=== PATIENT | female | born 1945 | race Caucasian/White ===

== ENCOUNTER 2020-01-02 10:02 | Outpatient (CLI) | payer MEDICARE, OTHER, SELFPAY ==
--- NOTE | 2020-01-02 | XR_ITS ---
WS: [id number] KNEE RIGHT TECHNIQUE: 3 views of the right knee CLINICAL INFORMATION: RT KNEE PAIN COMPARISON: None. FINDINGS: Mild degenerative arthritis with medial compartment narrowing. Hypertrophic changes along the joint l ine. Hypertrophic patella. Narrowing of the right patellofemoral articulation. No significant effusio n. Prior postoperative changes left TKA. XR/XR knee RT 3V* [id number] IMPRESSION: Mild tricompartmental arthritis right knee.
--- NOTE | 2020-01-02 | XR_ITS ---
WS: [id number] KNEE RIGHT TECHNIQUE: 3 views of the right knee CLINICAL INFORMATION: RT KNEE PAIN COMPARISON: None. FINDINGS: Mild degenerative arthritis with medial compartment narrowing. Hypertrophic changes along the joint l ine. Hypertrophic patella. Narrowing of the right patellofemoral articulation. No significant effusio n. Prior postoperative changes left TKA. XR/[place] [id number] IMPRESSION: Mild tricompartmental arthritis right knee.
== END 2020-01-02 10:03 | disposition home or self-care (01) ==
LOC: RADOUTREAD 01-03 10:39
PROVIDERS: Family Provider Nurse Practitioner; Visit Provider Physician Assistant
DX: Z01.89 Encounter for other specified special examinations (principal)

== ENCOUNTER 2020-01-02 22:22 | Emergency (ER) | payer MEDICARE, OTHER, SELFPAY ==
[2020-01-02 22:23] VITALS: BP 204/84; PULSE 75; RESP 16; TEMP 36.5; O2SAT 99; BMI 29.5
--- NOTE | 2020-01-02 22:29 | ED_ITS ---
Entered by Celena Juan, acting as scribe for HPI - Fall General: Chief Complaint: Fall Stated Complaint: FALL Time Seen by Provider: 01/02/20 22:29 Source: patient Mode of arrival: EMS Limitations: no limitations History of Present Illness: HPI Narrative: 74 yo f came to the er by [facility] for a fall and head injury. 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 Pt hit her head, right above her right eye, right hand and her right knee. Pt states that she was not able to move after. 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) Fall from: standing Fall witnessed: no Place fall occurred: home Loss of consciousness: None Prolonged down time: yes Symptoms prior to fall: none Context: tripped/slipped Location of injury: head Location of injury - extremities: Right: hand and knee Severity: mild Quality: stabbing Associated symptoms-after fall: Reports no associated symptoms; Denies abdominal pain, chest pain, headache(s) or neck pain Review of Systems General: Reports: other (negative unless marked) Const: Denies: fever, chills, body aches or change in appetite Eyes: Denies: blurry vision or eye discomfort ENMT: Denies: throat pain or dental pain Card: Denies: chest pain Resp: Denies: shortness of breath GI: Denies: abdominal pain, nausea, vomiting or diarrhea : Denies: painful urination Musc: Denies: neck pain or back pain Skin/Breast: Denies: rash Neuro: Denies: headache Psych: Denies: depression Tyler/Lymph: Denies: easy bruising All/Imm: Denies: hives PFSH ED PFSH: Social History Smoking and tobacco status: former smoker Physical Exam Const: COMMON NORMALS: no apparent distress, oriented x3 and healthy appearing HENMT: COMMON NORMALS: normocephalic HEAD & SCALP: normocephalic OTHER: Large hematoma over right eye extraocular movements intact Eye: COMMON NORMALS: PERRL and EOMs intact bilaterally PUPIL: Yes PERRL Neck/C-Spine: COMMON NORMALS: full ROM and supple Chest: COMMONS NORMALS: inspection of chest normal and palpation of chest normal Resp: COMMON NORMALS: normal respiratory effort, no retractions, no use of accessory muscles and clear to auscultation bilaterally AUSCULTATION: clear to auscultation bilaterally Cardio: COMMON NORMALS: regular rate, regular rhythm and no murmurs RATE: regular rate RHYTHM: regular rhythm GI: COMMON NORMALS: normal to inspection, nondistended, normoactive bowel sounds, soft to palpation, non-tender and no masses PALPATION: Yes soft Extremity: COMMON NORMALS: normal to inspection NARRATIVE EXTREMITY EXAM: Tenderness over right knee with some pain to range of motion. Contusion to right hand Neuro: COMMON NORMALS: oriented x3, moves all extremities and no focal motor deficits Psych: COMMON NORMALS: mental status grossly normal, thought process normal and cooperative THOUGHT PROCESS: normal thought process Skin: COMMON NORMALS: no rashes or lesions noted and no wounds GENERAL SKIN EXAM: no rashes or lesions noted TRAUMA: abrasion Course Vital Signs: Vital signs: Vital Signs Temperature 97.7 F 01/02/20 22:23 Pulse Rate 75 01/02/20 22:23 Respiratory Rate 16 01/02/20 22:23 Blood Pressure 204/84 01/02/20 22:23 Pulse Oximetry 99 01/02/20 22:23 MDM - Fall MDM Narrative: Medical decision making narrative: Patient presents here with proximal fibula fracture from a fall. Patient also has a closed head injury with CT being normal. She has a bruise to her hand as well with no fractures seen on x-ray. Patient placed in a knee immobilizer here and is to follow-up with orthopedics. She is to return if worsening. Imaging Data^: CT Head: Radiologist's impression: [address] [address] [address] Scan Report Signed Patient: Kalli Castaneda #: [id number] : 6Acct#:[id number] Age/Sex: 74 / FADM Date: 01/02/20 Loc: ERRoom/Bed: Attending Dr: Ordering Provider/Ordering MD: Isaiah Valera MD Date of Service: 01/02/20 Procedure(s): CT head wo con* [id number] Accession Number(s): [id number] Report Number: [id number] PROCEDURE INFORMATION: Exam: CT Head Without Contrast Exam date and time: 01/02/2020 10:36 PM Age: 74 years old Clinical indication: Injury or trauma; Fall; Initial encounter; Blunt trauma (contusions or hematomas); Without loss of consciousness; Injury date: 01/02/2020; Injury details: PT fell on hardwood, denies loc. Swelling/bruising RT orbit, RT side of lip TECHNIQUE: Imaging protocol: Computed tomography of the head without contrast. Total DLP: 781.38 mGy-cm Radiation optimization: All CT scans at this facility use at least one of these dose optimization techniques: automated exposure control; mA and/or kV adjustment per patient size (includes targeted exams where dose is matched to clinical indication); or iterative reconstruction. COMPARISON: CT head wo con* [id number] 10/17/2018 8:29 AM FINDINGS: Brain: There is minimal hypoattenuation in the periventricular white matter suggesting chronic microvascular disease. There is no significant mass effect or midline shift. There is no acute intracranial hemorrhage. Ventricles: There is no significant ventricular dilation. The basal cisterns are unremarkable. Bones/joints: The calvarium is intact. Sinuses: The paranasal sinuses are clear. Mastoid air cells: Mastoid air cells are hypoplastic. Soft tissues: Right frontal supraorbital scalp hematoma measuring 23 x 10 mm with right preseptal swelling. Visible portions of the orbital contents are unremarkable. CT/CT head wo con* [id number] IMPRESSION: 1. No acute intracranial abnormality. 2. Right frontal and preseptal contusions. Radiation Dose CTDIVOL = (mGy): DLP = 781.38 (mGy-cm) Dictated By:Aaron Carter MD Signed By:Aaron Carter MDSigned Date/Time:01/02/202308 DD/ 06 Other Xray: Radiologist's impression: [address] [address] XRay Report Signed Patient: Kalli Castaneda #: [id number] : 6Acct#:[id number] Age/Sex: 74 / FADM Date: 01/02/20 Loc: ERRoom/Bed: Attending Dr: Ordering Provider/Ordering MD: Isaiah Valera MD Date of Service: 01/02/20 Procedure(s): XR knee RT 3V* [id number] Accession Number(s): [id number] Report Number: [id number] PROCEDURE INFORMATION: Exam: XR Right Knee Exam date and time: 01/02/2020 10:50 PM Age: 74 years old Clinical indication: Injury or trauma; Fall; Initial encounter; Blunt trauma; Right; Injury date: 01/02/2020; Injury details: 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 Views: 3 views. COMPARISON: No relevant prior studies available. FINDINGS: Bones/joints: Subtle medial and lateral compartment chondrocalcinosis. Femoral acetabular alignment is normal. Joint spaces are preserved. The visible portions of the femur, tibia and patella are intact. No large joint effusion. Small patellar osteophytes. Subtle lucency through the fibular head visible on the oblique view. Soft tissues: Soft tissues are unremarkable. XR/XR knee RT 3V* [id number] IMPRESSION: 1. Possible nondisplaced fibular head fracture. Correlate with physical exam findings. 2. Satisfactory knee alignment with intact distal femur and tibia. Dictated By:Aaron Carter MD Signed By:Aaron Carter MDSigned Date/Time:01/02/202310 DD/ 08 Discharge Plan Discharge Patient Disposition: Home, Self-Care Clinical Impression: Fall Qualifiers: Encounter type: initial encounter Qualified Code(s): W19.XXXA - Unspecified fall, initial encounter Closed head injury Qualifiers: Encounter type: initial encounter Qualified Code(s): S09.90XA - Unspecified injury of head, initial encounter Closed fracture fibula, head Qualifiers: Encounter type: initial encounter Laterality: right Qualified Code(s): S82.831A - Other fracture of upper and lower end of right fibula, initial encounter for closed fracture Condition: Stable Prescriptions: [place] 5-325 mg tablet 1 tab PO Q6H PRN (Reason: pain) Qty: 10 RF: 0 Discharge Orders: Discharge Order (Routine); Ordered 01/02/20 Ordered By: Isaiah Valera Referrals: Bradley Wallace, MACHINE OPERATOR [facility]ICK[facility] [Family Provider] - 1-3 days Discharge Diet: Advance as tolerated Discharge Activity: Resume usual activity Patient Instructions: Leg Fracture (ED), Fall Prevention (ED) Discharge Date/Time: 01/03/20 00:12 Coding Level of Care Code ED Green Building Energy Engineer for Chg Fwd Exam Problem Focused The documentation recorded by the Drake castaneda Stephanie Lyn, accurately r eflects the service I personally performed and the decisions made by Moraima blue Korby, MD Jan 02, 2020 22:22
--- NOTE | 2020-01-02 22:35 | XRR_ITS ---
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 Views: 3 views. COMPARISON: No relevant prior studies available. FINDINGS: Bones/joints: Subtle medial and lateral compartment chondrocalcinosis. Femoral acetabular alignment is normal. Joint spaces are preserved. The visible portions of the femur, tibia and patella are intact. No large joint effusion. Small patellar osteophytes. Subtle lucency through the fibular head visible on the oblique view. Soft tissues: Soft tissues are unremarkable. XR/XR knee RT 3V* [id number] IMPRESSION: 1. Possible nondisplaced fibular head fracture. Correlate with physical exam findings. 2. Satisfactory knee alignment with intact distal femur and tibia.
--- NOTE | 2020-01-02 22:35 | XR_ITS ---
WS: [id number] Right hand, 01/02/2020 Clinical Data: injury Comparison: None. Findings: No fractures or dislocations are seen. . The soft tissues are unremarkable. The joint spaces are norm al. Osteoarthritic changes of the second through fifth MP joints is seen. XR/XR hand RT min 3V* [id number] Impression: Negative for fracture or dislocation.
--- NOTE | 2020-01-02 22:35 | CTR_ITS ---
PROCEDURE INFORMATION: Exam: CT Head Without Contrast Exam date and time: 01/02/2020 10:36 PM Age: 74 years old Clinical indication: Injury or trauma; Fall; Initial encounter; Blunt trauma (contusions or hematomas); Without loss of consciousness; Injury date: 01/02/2020; Injury details: PT fell on hardwood, denies loc. Swelling/bruising RT orbit, RT side of lip TECHNIQUE: Imaging protocol: Computed tomography of the head without contrast. Total DLP: 781.38 mGy-cm Radiation optimization: All CT scans at this facility use at least one of these dose optimization techniques: automated exposure control; mA and/or kV adjustment per patient size (includes targeted exams where dose is matched to clinical indication); or iterative reconstruction. COMPARISON: CT head wo con* [id number] 10/17/2018 8:29 AM FINDINGS: Brain: There is minimal hypoattenuation in the periventricular white matter suggesting chronic microvascular disease. There is no significant mass effect or midline shift. There is no acute intracranial hemorrhage. Ventricles: There is no significant ventricular dilation. The basal cisterns are unremarkable. Bones/joints: The calvarium is intact. Sinuses: The paranasal sinuses are clear. Mastoid air cells: Mastoid air cells are hypoplastic. Soft tissues: Right frontal supraorbital scalp hematoma measuring 23 x 10 mm with right preseptal swelling. Visible portions of the orbital contents are unremarkable. CT/CT head wo con* [id number] IMPRESSION: 1. No acute intracranial abnormality. 2. Right frontal and preseptal contusions. Radiation Dose CTDIVOL = (mGy): DLP = 781.38 (mGy-cm)
[2020-01-02] MEDS: HYDROcodone-acetaminophen 7.5-325 mg Tablet 1 TAB PO (23:23)
[2020-01-03 00:11] VITALS: BP 173/83; PULSE 80; RESP 16; O2SAT 98
--- NOTE | 2020-01-03 13:21 | DCPLANNER ---
general operations manager had message to schedule a follow up appointment for patient with ortho. general operations manager called the ortho clinic, spoke with Queta, gave clinic patients information. general operations manager was told that patients information would be printed and reviewed. Clinic will call disability case manager and patient with appointment information.
--- NOTE | 2020-01-05 08:59 | DCPLANNER ---
Patient had a follow up appointment scheduled for 01.04.[address] Roque at ortho. Patient did attend the appointment.
== END 2020-01-03 00:12 | disposition home or self-care (01) ==
LOC: ER 23:13
PROVIDERS: Emergency Provider Emergency Medicine; Family Provider Nurse Practitioner
DX: S82.831A Other fracture of upper and lower end of right fibula, initial encounter for closed fracture (principal); S00.83XA Contusion of other part of head, initial encounter; S60.221A Contusion of right hand, initial encounter; Z87.891 Personal history of nicotine dependence; W01.0XXA Fall on same level from slipping, tripping and stumbling without subsequent striking against object, initial encounter; Y92.009 Unspecified place in unspecified non-institutional (private) residence as the place of occurrence of the external cause
CPT/HCPCS: 12345; 29530; 70450; 73130; 73562; 99282; 99283

== ENCOUNTER 2020-01-04 14:31 | Outpatient (CLI) | payer MEDICARE, OTHER, SELFPAY | END 2020-01-04 14:32 | disposition home or self-care (01) | LOC: SPT 14:33 | PROVIDERS: Family Provider Nurse Practitioner; Visit Provider Specialist | DX: Z46.89 Encounter for fitting and adjustment of other specified devices (principal); S83.511D Sprain of anterior cruciate ligament of right knee, subsequent encounter; X58.XXXD Exposure to other specified factors, subsequent encounter | CPT/HCPCS: L1812 ==

== ENCOUNTER 2020-01-17 11:19 | Outpatient (CLI) | payer MEDICARE, OTHER, SELFPAY ==
--- NOTE | 2020-01-17 11:45 | MR_ITS ---
WS: [id number] MRI RIGHT KNEE NONCONTRAST TECHNIQUE: Axial PD, coronal PD fat sat, coronal PD, sagittal PD, and sagittal PD fat-sat images obta ined. CLINICAL INFORMATION: pain COMPARISON: None. FINDINGS: Distal quadriceps and patella tendons are intact. Normal anterior cruciate ligament. Normal posterior cruciate ligament. Small suprapatellar effusion. Prepatellar soft tissue edema. Lobulated popliteal cyst measuring 3.8 x 1.0 CM. Edema in the popliteal fossa. Chronic appearing intrasubstance signal ab normality in the medial and lateral meniscus. Chronic thinning of the medial and lateral meniscus. No acute appearing meniscal tears. Medial and lateral collateral ligaments appear intact. Degenerati ve edema involving the medial and lateral tibial plateau. Advanced chondromalacia patella with subcho ndral edema in the patella.. Advanced degenerative arthritis at the patellofemoral articulation. Norm al visualized fibular head. MR/MR knee RT wo con* [id number] IMPRESSION: 1. Prepatellar and infrapatellar soft tissue edema. 2. Small suprapatellar effusion. 3. Anterior and posterior cruciate ligaments are intact. 4. Advanced chondromalacia patella with subchondral edema and hypertrophic pat lynne. 5. Lobulated popliteal cyst measuring 3.8 x 1.0 cm in the popliteal fossa. 6. Mild chronic thinning of the medial and lateral meniscus. No acute appearin g meniscal tears. 7. Moderate medial and lateral compartment narrowing with moderate chondromala stephy. Degenerative edema involving the tibial plateau.
== END 2020-01-17 11:20 | disposition home or self-care (01) ==
LOC: RADSHAW 11:20
PROVIDERS: Family Provider Nurse Practitioner; PCP Physician Assistant; Visit Provider Specialist
DX: S83.511A Sprain of anterior cruciate ligament of right knee, initial encounter (principal); M25.461 Effusion, right knee; M22.41 Chondromalacia patellae, right knee; M71.21 Synovial cyst of popliteal space [Baker], right knee; X58.XXXA Exposure to other specified factors, initial encounter
CPT/HCPCS: 73721

== ENCOUNTER → 2020-06-15 10:58 | Outpatient (BNVA) | payer MEDICARE, OTHER, SELFPAY | PROVIDERS: Family Provider Nurse Practitioner; PCP Physician Assistant; Visit Provider Internal Medicine | DX: Z11.59 Encounter for screening for other viral diseases (principal) | CPT/HCPCS: 87635 ==

== ENCOUNTER 2020-06-19 12:05 | Outpatient (CLI) | payer MEDICARE, OTHER, SELFPAY ==
--- NOTE | 2020-06-19 13:06 | CT_ITS ---
WS: [id number] CT CHEST TECHNIQUE: Contrast enhanced CT of the chest with coronal and sagittal reformatted images. CLINICAL INFORMATION: CHRONIC COUGH COMPARISON: None. DLP: 581.[address] scans at [facility] use at least one of these dose optimization techniques: automat ed exposure control; mA and/or kV adjustment per patient size (includes targeted exams where dose is matched to clinical indication); or iterative reconstruction. FINDINGS: Postoperative changes bilateral breasts. Lungs are well aerated. No acute pulmonary infiltrates. No f ocal pneumonia. No pleural fluid. Normal caliber thoracic aorta. Proximal main pulmonary arteries are normal.Enlarged right hilar lymph node measuring 1.5 CM. Calcified mediastinal lymph nodes. Adrenal glands are normal. Splenic artery calcification. No axillary lymphadenopathy. Chronic anterio r wedging in the mid thoracic spine. This is most prominent at T7 and T8 unchanged since 2017. CT/CT chest w con* [id number] IMPRESSION: 1. No acute pulmonary infiltrates. No suspicious pulmonary parenchymal opaciti es. 2. Enlarged right hilar lymph node measuring 1.5 cm in short axis dimension an d appears stable since . Recommend 6 month follow-up chest CT to confir m stability. 3. Chronic anterior wedging in the mid thoracic spine at T7-T8. 4. No other significant changes.
--- NOTE | 2020-06-19 13:16 | PFTS_ITS ---
Date of Study:06/19/20 Date of Dictation: MECHANICS: Forced vital capacity (FVC) is normal. Forced expiratory volume in one second (FEV1) is normal. FEV1/FVC is normal. FLOW VOLUME LOOP: Normal. LUNG VOLUMES: Not measured DIFFUSING CAPACITY FOR CARBON MONOXIDE: Not measured INTERPRETATION: The spirometry is normal. MTDD
[2020-06-19 13:56] LABS: Blood Urea Nitrogen 13 mg/dL (8-23)
[2020-06-19] MEDS: iohexol 300 mg/mL 100 mL Btl IV (14:18)
== END 2020-06-19 12:06 | disposition home or self-care (01) ==
LOC: RT 12:06
PROVIDERS: PCP Physician Assistant; Visit Provider Specialist
DX: H92.02 Otalgia, left ear (principal); M54.2 Cervicalgia; R05 Cough; R59.0 Localized enlarged lymph nodes; M48.54XA Collapsed vertebra, not elsewhere classified, thoracic region, initial encounter for fracture
CPT/HCPCS: 36415; 71260; 82565; 84520; 94010

== ENCOUNTER 2021-04-10 10:13 | Emergency (ER) | payer MEDICARE, OTHER, SELFPAY ==
[2021-04-10 10:15] VITALS: BP 177/121; PULSE 85; RESP 18; TEMP 36.5; O2SAT 98; BMI 27.4
[2021-04-10 10:33] VITALS: BP 176/94; PULSE 71; RESP 18; O2SAT 99
--- NOTE | 2021-04-10 10:45 | CT_ITS ---
WS: [id number] CT ORBITS TECHNIQUE: Noncontrast CT of the orbits with coronal and sagittal reformatted images. CLINICAL INFORMATION: left eyelid injury, left globe pain, left orbital bone pain COMPARISON: None. DLP: 491.[address] scans at [facility] use at least one of these dose optimization techniques: automat ed exposure control; mA and/or kV adjustment per patient size (includes targeted exams where dose is matched to clinical indication); or iterative reconstruction. FINDINGS: Paranasal sinuses are well aerated. Subcutaneous edema and emphysema overlying the left orbit. Small amount of air in the post septal intraorbital soft tissues. Soft tissue edema with subcutaneous emphy sema overlying the left zygoma. No evidence of intraorbital or retrobulbar hematoma. Globe appears in tact. Normal rectus muscles. Normal lamina papyracea. Normal lateral orbits. Normal inferior orbit. Nasal b ones are normal. Normal mandible. No acute fracture dislocation.Normal parapharyngeal fat. Normal pos terior nasopharynx. Bilateral tonya bullosa. CT/CT orbit BI wo con* [id number] IMPRESSION: 1. Diffuse edema with subcutaneous emphysema overlying the left orbit and left nasal bones. This extends into the left facial soft tissues overlying the zygo ma. 2. Small amount of air in the post septal intraorbital fat. No evidence of ret robulbar or intraconal hematoma. Globe appears grossly intact. 3. No acute facial fractures. Normal lamina papyracea. 4. Paranasal sinuses and mastoid air cells well aerated.
[2021-04-10] MEDS: ondansetron 4 MG Tablet PO (11:00)
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
[2021-04-10] MEDS: tetanus-dipt-pertussis 0.5 mL SDV IM (13:04)
[2021-04-10 13:08] VITALS: BP 146/72; PULSE 75; RESP 18; TEMP 36.9; O2SAT 98
== END 2021-04-10 13:12 | disposition home or self-care (01) ==
PROVIDERS: Emergency Provider Emergency Medicine; PCP Physician Assistant
DX: S00.81XA Abrasion of other part of head, initial encounter (principal); S09.93XA Unspecified injury of face, initial encounter; W22.8XXA Striking against or struck by other objects, initial encounter; I10 Essential (primary) hypertension; Z87.891 Personal history of nicotine dependence; Z23 Encounter for immunization
CPT/HCPCS: 70480; 90471; 90715; 99283; Q0162

== ENCOUNTER → 2021-08-05 10:56 | Outpatient (BNVA) | payer MEDICARE, OTHER, SELFPAY | PROVIDERS: PCP Physician Assistant; Referring Provider Physician Assistant; Visit Provider Podiatrist Foot & Ankle Surgery | DX: M19.072 Primary osteoarthritis, left ankle and foot (principal); M79.672 Pain in left foot | CPT/HCPCS: 73630 ==

== ENCOUNTER 2021-08-07 10:04 | Outpatient (CLI) | payer MEDICARE, OTHER, SELFPAY ==
--- NOTE | 2021-08-07 10:11 | CT_ITS ---
WS: [id number] CT TEMPORAL BONES TECHNIQUE: Noncontrast CT of the temporal bones with coronal and sagittal reformatted images. CLINICAL INFORMATION: OTHER SPECIFIED DISORDERS OF EUSTACHIAN TUBE, LEFT EAR HEARI COMPARISON: None. DLP: 683.[address] scans at [facility] use at least one of these dose optimization techniques: automated e xposure control; mA and/or kV adjustment per patient size (includes targeted exams where dose is matc hed to clinical indication); or iterative reconstruction. FINDINGS: Paranasal sinuses are well aerated. Normal posterior nasopharynx. Normal parapharyngeal fat . Partially visualized posterior fossa appears unremarkable. Intracranial vascular calcification. Right mastoid air cells are well aerated. Right middle ear is well aerated. 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 Resi dual mastoid air cells are well aerated. Left middle ear is well aerated. RIGHT: Mastoid air cells are well aerated. Normal external auditory canal. Ossicles are normal in appearance . Middle ear is well aerated. Normal tegmen tympani. Semicircular canals and cochlea are normal in ap pearance. Prussak's space is normal. Normal inner ear structures. Normal vestibular aqueduct. Facial nerve recess is normal. LEFT: Normal external auditory canal. Chronic appearing erosion of the left ossicles. Some of this may be p ostoperative. Normal tympanic membrane. Erosive changes involving the body of the incus and lateral p rocess of the malleus. Middle ear is well aerated. Thinning of the tegmen tympani. Semicircular kadie ls and cochlea are normal in appearance. Prussak's space is normal. Normal vestibular aqueduct. Facia l nerve recess is normal. CT/CT temporal bone wo con* [id number] IMPRESSION: 1. 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 Residual mastoid air cells are well aerated. 2. Chronic appearing erosion of the LEFT ossicles. Some of this may be postope rative versus prior chronic otomastoiditis.. Normal tympanic membrane. Erosive changes involving the body of the incus and lateral process of the malleus. 3. Thinning of the left tegmen tympani. 4. RIGHT mastoid air cells and RIGHT Inner ear structures are normal.
== END 2021-08-07 10:05 | disposition home or self-care (01) ==
PROVIDERS: PCP Physician Assistant; Visit Provider Specialist
DX: H69.82 Other specified disorders of Eustachian tube, left ear (principal)
CPT/HCPCS: 70480

== ENCOUNTER 2021-09-17 13:55 | Outpatient (CLI) | payer MEDICARE, OTHER, SELFPAY | END 2021-09-17 13:56 | disposition home or self-care (01) | LOC: SPT 13:56 | PROVIDERS: PCP Physician Assistant; Visit Provider Podiatrist Foot & Ankle Surgery | DX: Z46.89 Encounter for fitting and adjustment of other specified devices (principal); M76.829 Posterior tibial tendinitis, unspecified leg | CPT/HCPCS: 97760; L3030 ==

== ENCOUNTER 2022-04-11 13:24 | Emergency (ER) | payer MEDICARE, OTHER, SELFPAY ==
--- NOTE | 2022-04-11 13:27 | XR_ITS ---
WS: [id number] Portable AP upright chest, 04/11/2022 Clinical Data: chest pain Comparison: PA and lateral chest, 10/17/2018. Findings: No nodules, masses or effusions are seen. The heart is normal. The pulmonary vascularity is not increased. No pneumonia or pneumothorax is seen. The aortic arch and descending thoracic aorta s how mild tortuosity. There is a dextroscoliosis of the thoracic spine. XR/XR chest 1V portable [id number] Impression: Atherosclerosis.
--- NOTE | 2022-04-11 13:27 | ECG_ITS ---
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 Measurements Intervals [place] Rate: 58 P: 38 [place]: 185 QRS: 34 QRSD: 105 T: 64 QT: 424 QTc: 418 Interpretive Statements SINUS BRADYCARDIA WITH OCCASIONAL VENTRICULAR PREMATURE COMPLEXES Compared to ECG 10/17/2018 08:24:05 Ventricular premature complex(es) now present Sinus rhythm no longer present Electronically Signed On 04-11-2022 20:42:46 CDT by Iraj Tamez M.D. [id number]
--- NOTE | 2022-04-11 13:29 | W.ED.CHESTPA ---
HPI - Chest Pain General: Chief Complaint: Chest Pain Stated Complaint: CHEST PAIN Time Seen by Provider: 04/11/22 13:28 History of Present Illness: 76-year-old female comes in today with complaints of of not feeling well for the last 2 weeks. Patient also reports occasional jaw pain with chest pressure. Patient has a history of hypertension and arthritis. Patient is alert and responds appropriate to questions. Patient denies any cardiac history. Patient does receive hydrocodone and acetaminophen for chronic pain through pain specialist. Associated symptoms: Reports nausea; Deny dyspnea, fever(s) or vomiting Review of Systems General: Reports: 10 or more systems reviewed and unremarkable except in HPI and below Const: Reports: fatigue and malaise; Denies: fever(s) Card: Reports: chest pain Resp: Denies: dyspnea GI: Reports: nausea; Denies: vomiting or diarrhea Skin/Breast: Denies: rash PFSH ED PFSH: Medical History (Updated 04/11/22 @ 17:12 by LUCILLE Diaz) Accelerated essential hypertension History of nonmelanoma skin cancer Surgical History H/O: hysterectomy History of left knee replacement Family History Other Hypertension Stroke Social History Smoking and tobacco status: never smoked Alcohol intake: never Physical Exam Const: COMMON NORMALS: alert HENMT: COMMON NORMALS: normocephalic HEAD & SCALP: normocephalic Neck/C-Spine: COMMON NORMALS: full ROM Resp: COMMON NORMALS: normal respiratory effort Cardio: COMMON NORMALS: regular rate RATE: regular rate Neuro: SENSORIUM/ORIENTATION: Yes alert Course Vital Signs: Vital signs: Vital Signs Pulse Rate 53 L 04/11/22 16:51 Respiratory Rate 16 04/11/22 16:51 Blood Pressure 183/80 04/11/22 16:51 Pulse Oximetry 96 04/11/22 16:51 MDM - Chest Pain Medical Decision Making Patient came in today with complaints of fatigue and some chest discomfort today. Patient reported that more as pressure. Patient was given 1 nitro and aspirin in route to the ER. Patient reports relief of discomfort on arrival to the ER. Respirations were even lungs were clear to auscultation. Heart tones were normal. Vital signs were normal except for an elevation of blood pressure with a 202 systolic pressure and a 58 pulse. Differential diagnosis includes but not limited to sick sinus syndrome, sinus bradycardia, ACS, uncontrolled hypertension. Troponin was unchanged at 2 hours and remained in normal range. Chest x-ray was normal. CBC CMP was unremarkable. Heart score for patient was 3. Discussed with patient whether or not she wanted to be admitted to the hospital or would want outpatient referral. Patient preferred outpatient referral. Case management was requested to set up cardiology appointment for the sinus bradycardia and further evaluation. Patient understood return to the ER for worsening symptoms such as severe chest pain and shortness of breath. Lab Data : 04/11/22 13:45 04/11/22 14:36 Radiology Impressions Chest X-Ray 04/11/22 13:27 Impression: Atherosclerosis. Laboratory Results WBC 6.4 10^3/uL (4.0-10.0) 04/11/22 13:45 RBC 4.51 10^6/uL (4.1-5.3) 04/11/22 13:45 Hgb 13.0 g/dL (11.5-15.3) 04/11/22 13:45 Hct 37.3 % (37.0-47.0) 04/11/22 13:45 MCV 82.7 fl (81-99) 04/11/22 13:45 MCH 28.8 pg (28.0-34.0) 04/11/22 13:45 MCHC 34.9 g/dL (30.0-36.0) 04/11/22 13:45 RDW 13.1 % (12.1-15.1) 04/11/22 13:45 Plt Count 187 10^3/cmm (130-400) 04/11/22 13:45 MPV 11.7 fL (7.4-10.4) H 04/11/22 13:45 Neut % (Auto) 58.3 % 04/11/22 13:45 Lymph % (Auto) 32.5 % 04/11/22 13:45 Hill % (Auto) 5.8 % 04/11/22 13:45 Eos % (Auto) 1.7 % 04/11/22 13:45 Baso % (Auto) 1.4 % 04/11/22 13:45 Neut # (Auto) 3.71 10^3/uL (1.8-7.7) 04/11/22 13:45 Lymph # (Auto) 2.1 10^3/uL (0.8-4.8) 04/11/22 13:45 Hill # (Auto) 0.4 10^3/uL (0.2-0.9) 04/11/22 13:45 Eos # (Auto) 0.1 10^3/uL (0.0-0.8) 04/11/22 13:45 Baso # (Auto) 0.1 10^3/uL (0.0-0.1) 04/11/22 13:45 Nucleated RBC % (auto) 0 % 04/11/22 13:45 Nucleated RBCs # 0.0 /100WBC 04/11/22 13:45 Sodium 134 mmol/L (136-145) L 04/11/22 14:36 Potassium 3.8 mmol/L (3.5-5.1) 04/11/22 14:36 Chloride 100 mmol/L (98-107) 04/11/22 14:36 Carbon Dioxide 24 mmol/L (22-29) 04/11/22 14:36 Anion Gap 13.8 (5-19) 04/11/22 14:36 BUN 14 mg/dL (8-23) 04/11/22 14:36 Creatinine 0.8 mg/dL (0.5-0.9) 04/11/22 14:36 GFR Calculation Not Reportable 04/11/22 14:36 Glucose 93 mg/dL (65-115) 04/11/22 14:36 Calculated Osmolality 278 mOsm/kg (285-295) L 04/11/22 14:36 Calcium 9.4 mg/dL (8.5-10.5) 04/11/22 14:36 Magnesium 2.1 mg/dL (1.7-2.3) 04/11/22 14:36 Total Bilirubin 0.4 mg/dL (0.15-1.2) 04/11/22 14:36 AST 16 U/L (0-32) 04/11/22 14:36 ALT 13 U/L (0-33) 04/11/22 14:36 Alkaline Phosphatase 65 IU/L (35-105) 04/11/22 14:36 Troponin T Baseline 6 ng/L (0-10) 04/11/22 13:45 Troponin T 120 Minute 6.58 ng/L (0-10) 04/11/22 16:23 NT-Pro-B Natriuret Pep 176 pg/mL (0-450) 04/11/22 14:36 Total Protein 6.3 g/dL (6.6-8.7) L 04/11/22 14:36 Albumin 4.0 g/dL (3.5-5.2) 04/11/22 14:36 Globulin 2.3 g/dL (1.3-4.6) 04/11/22 14:36 TSH 4.58 uIU/mL (0.27-4.20) H 04/11/22 14:36 Urine Color Yellow (Yellow) 04/11/22 14:00 Urine Appearance Clear (CLEAR) 04/11/22 14:00 Urine pH 8 (5-7) H 04/11/22 14:00 Ur Specific [place] 1.010 (1.005-1.030) 04/11/22 14:00 Urine Protein Neg (Negative) 04/11/22 14:00 Urine Glucose (UA) Norm (Normal) 04/11/22 14:00 Urine Ketones Negative (Negative) 04/11/22 14:00 Urine Blood Neg (Negative) 04/11/22 14:00 Urine Nitrate Negative (Negative) 04/11/22 14:00 Urine Bilirubin Neg (Negative) 04/11/22 14:00 Prot Sulfosalicylic Acd Negative (Negative) 04/11/22 14:00 Urine Urobilinogen Norm mg/dL (Negative) 04/11/22 14:00 Ur Leukocyte Esterase Negative (Negative) 04/11/22 14:00 EKG Data EKG 1: EKG interpretation date: 04/11/22 EKG interpretation time: 13:54 Prior EKG tracings: available for review Interpretation: EKG shows a sinus rhythm with a regular rate at [address] elevation or ectopy is noted. Patient is in sinus bradycardia at this time which was not present in 2015. EKG 2: EKG interpretation date: 04/11/22 EKG interpretation time: 15:44 Prior EKG tracings: available for review Interpretation: EKG shows sinus rhythm with a regular rate at around 60 bpm. No significant changes from prior exam. No ST elevation or ectopy is noted. Discharge Plan Discharge Patient Disposition: Home Clinical Impression: Sinus bradycardia Chest pain Qualifiers: Chest pain type: unspecified Qualified Code(s): R07.9 - Chest pain, unspecified Hypertension Qualifiers: Hypertension type: unspecified Qualified Code(s): I10 - Essential (primary) hypertension Condition: Stable Prescriptions: No Action (DME) Hinged Knee Brace Qty: 1 0RF Rx Instructions: As directed (DME) Custom Molded Orthotics See Rx Instructions .Route .MEDSUPPLY Qty: 1 0RF Rx Instructions: As directed multivitamin Tablet 1 tab PO DAILY 0RF hydrocodone-acetaminophen 5-325 mg tablet 1 tab PO TID PRN (Reason: Pain) 0RF losartan 100 mg tablet 100 mg PO QAM 0RF potassium gluconate 595 mg (99 mg) Tablet 595 mg PO DAILY 0RF meloxicam 15 mg tablet 15 mg PO QAM 0RF Vitamin D3 10 mcg (400 unit) Capsule 10 mcg PO DAILY 0RF Discharge Orders: Discharge ED (Routine); Ordered 04/11/22 Ordered By: Jann Giles Referrals: Fernanda Peralta PA [Primary Care Provider] - Discharge Diet: Usual diet Discharge Activity: Increase activity as tolerated Patient Instructions: Bradycardia (ED) Activity Restrictions/Additional Instructions: Continue with routine care. Monitor blood pressure daily. Follow-up with primary care for recheck of blood pressure. Case management will contact you in regards for your follow-up appointment with marketing services vice president. Return to ER for worsening chest pain and shortness of breath. Coding Level of Care Code ED Cartridge Assembling Machine Adjuster for Chg Fwd Exam Detailed
[2022-04-11 13:42] VITALS: BP 202/87; PULSE 49; RESP 17; O2SAT 96; BMI 28.3
[2022-04-11 13:51] LABS: Basophils # 0.1 10^3/uL (0.0-0.1); Basophils % 1.4 %; Eosinophils # 0.1 10^3/uL (0.0-0.8); Eosinophils % 1.7 %; Hematocrit 37.3 % (37.0-47.0); Lymphocytes # 2.1 10^3/uL (0.8-4.8); Lymphocytes % 32.5 %; Mean Corpuscular HGB Conc 34.9 g/dL (30.0-36.0); Mean Corpuscular Hemoglobin 28.8 pg (28.0-34.0); Mean Corpuscular Volume 82.7 fl (81-99); Mean Platelet Volume 11.7 fL (7.4-10.4); Monocytes # 0.4 10^3/uL (0.2-0.9); Monocytes % 5.8 %; Neutrophils # 3.71 10^3/uL (1.8-7.7); Neutrophils % 58.3 %; Nucleated Red Blood Cells % 0 %; Platelet Count 187 10^3/cmm (130-400); Red Blood Count 4.51 10^6/uL (4.1-5.3); Red Cell Distribution Width 13.1 % (12.1-15.1); White Blood Count 6.4 10^3/uL (4.0-10.0)
[2022-04-11 14:16] LABS: Troponin(5th) Baseline 6 ng/L (0-10)
--- NOTE | 2022-04-11 14:30 | PC.PHAR ---
pt states she takes care of her own medications-pt states she is no longer taking trazodone 50mg hs pt states not taken sincce mar 14 2022
[2022-04-11 14:43] LABS: Add Urine Microscopic? NO; Charge for UA Resulting for Rev
[2022-04-11 14:45] LABS: Glucose Urine UA Norm (Normal); Ketones Urine Negative (Negative); Protein Urine Neg (Negative); Urine Appearance Clear (CLEAR); Urine Color Yellow (Yellow); pH Urine 8 (5-7)
[2022-04-11 14:46] LABS: Bilirubin Urine Neg (Negative); Blood Urine Neg (Negative); Leukocyte Esterase Urine Negative (Negative); Nitrate Urine Negative (Negative); Urobilinogen Urine Norm (Negative)
[2022-04-11 14:47] LABS: Sulfosalicylic Acid Urine Negative (Negative)
[2022-04-11 15:12] LABS: Alanine Aminotransferase 13 U/L (0-33); Alkaline Phosphatase 65 IU/L (35-105); Anion Gap 13.8 (5-19); Aspartate Amino Transferase 16 U/L (0-32); Blood Urea Nitrogen 14 mg/dL (8-23); Calcium 9.4 mg/dL (8.5-10.5); Carbon Dioxide 24 mmol/L (22-29); Chloride 100 mmol/L (98-107); Creatinine Clr Calc Pharmacy 61.4308; Globulin 2.3 g/dL (1.3-4.6); Glucose 93 mg/dL (65-115); Magnesium 2.1 mg/dL (1.7-2.3); NT Pro B Type Natriuretic Pept 176 pg/mL (0-450); Osmolality Calculated 278 mOsm/kg (285-295); Potassium 3.8 mmol/L (3.5-5.1); Sodium 134 mmol/L (136-145); Thyroid Stimulating Hormone 4.58 uIU/mL (0.27-4.20); Total Bilirubin 0.4 mg/dL (0.15-1.2); Total Protein 6.3 g/dL (6.6-8.7)
--- NOTE | 2022-04-11 15:27 | ECG_ITS ---
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 Measurements Intervals [place] Rate: P: NE: QRS: QRSD: T: QT: QTc: Interpretive Statements SINUS BRADYCARDIA Compared to ECG 04/11/2022 13:51:42 NO SIGNIFICANT CHANGES Electronically Signed On 04-11-2022 20:45:38 CDT by Iraj Tamez M.D. [id number]
[2022-04-11 16:51] VITALS: BP 183/80; PULSE 53; RESP 16; O2SAT 96
[2022-04-11 17:05] LABS: Troponin 5 2HR 6.58 ng/L (0-10)
[2022-04-11 17:41] LABS: Troponin 5 2HR Delta 0.58 ABS# (0-10)
[2022-04-11 17:43] VITALS: BP 183/80; PULSE 53; RESP 16; O2SAT 96
--- NOTE | 2022-04-11 19:27 | ECG_ITS ---
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 Measurements Intervals [place] Rate: 51 P: 22 MI: 184 QRS: 21 QRSD: 102 T: 64 QT: 447 QTc: 413 Interpretive Statements SINUS BRADYCARDIA Compared to ECG 04/11/2022 13:46:07 Ventricular premature complex(es) no longer present Electronically Signed On 04-11-2022 20:45:59 CDT by Iraj Tamez M.D. [id number]
--- NOTE | 2022-04-13 08:19 | DCPLANNER ---
Addendum entered by Lisset Valerio 06/17/22 13:18: Patient had a follow up appointment scheduled for 06.09.22 at [facility] - patient did not attend appointment. Addendum entered by Lisset Valerio 05/16/22 17:28: Patient has a follow up appointment scheduled for Thursday, June 09, 2022 at 1:[address] Goss. Clinic will call patient with appointment information. Original Note: software qa manager had message to schedule a follow up appointment for patient with cardiology. software qa manager sent patients information to the front office staff at [facility]. Patients information will be printed and reviewed. Clinic will call patient with appointment information.
== END 2022-04-11 17:44 | disposition home or self-care (01) ==
PROVIDERS: Emergency Provider Nurse Practitioner Family; PCP Physician Assistant
DX: R00.1 Bradycardia, unspecified (principal); R07.9 Chest pain, unspecified; I10 Essential (primary) hypertension; G89.29 Other chronic pain; Z82.49 Family history of ischemic heart disease and other diseases of the circulatory system; Z79.891 Long term (current) use of opiate analgesic
CPT/HCPCS: 36415; 71045; 80053; 81003; 83735; 83880; 84443; 84484; 85025; 93005; 99285

== ENCOUNTER 2022-04-17 08:55 | Emergency (ER) | payer MEDICARE, OTHER, SELFPAY ==
[2022-04-17 09:04] VITALS: BP 128/78; PULSE 70; RESP 16; TEMP 36.6; O2SAT 98; BMI 28.3
--- NOTE | 2022-04-17 09:24 | ED_ITS ---
Documented by User: CHRISTELLE Smith 04/18/22 13:30 HPI - Animal Bite General: Chief Complaint: Animal Bite Stated Complaint: left hand swollen Time Seen by Provider: 04/17/22 09:04 History of Present Illness: Patient is a 76-year-old female comes to the ED with left hand pain and swelling. Patient's left hand near base of thumb was bitten by her cat on Thursday, April 14. She was seen at urgent care yesterday and started on Augmentin. She has not been on antibiotics for 24 hours yet and is only taken the first 3 doses of her prescribed Augmentin. Today the pain and swelling has gotten worse. She rates the pain currently a 5 out of 10. She took 800 mg of ibuprofen before coming to the ED. Patient's cat was fully vaccinated including rabies vaccination. Patient is up-to-date on her tetanus. Associated symptoms: Deny chills, fever(s) or headache(s) Review of Systems Const: Denies: fever(s), chills or fatigue Eyes: Denies: change in vision or eye discomfort ENMT: Denies: throat pain, odynophagia, nasal discharge or nasal congestion Card: Denies: chest pain, palpitations, edema, swelling of feet/ankles, dyspnea on exertion or orthopnea Resp: Denies: dyspnea, productive cough or non-productive cough GI: Denies: abdominal pain, nausea, vomiting, diarrhea, constipation or hematochezia : Denies: flank pain, dysuria or hematuria Musc: Reports: extremity pain (Left hand) and extremity swelling (Left hand); Denies: neck pain or back pain Skin/Breast: Denies: rash or new lesions Neuro: Denies: headache(s), numbness in extremities or weakness in extremities PFS ED PFSH: Medical History Accelerated essential hypertension History of nonmelanoma skin cancer Surgical History H/O: hysterectomy History of left knee replacement Family History Other Hypertension Stroke Social History Smoking and tobacco status: never smoked Alcohol intake: never Physical Exam Const: COMMON NORMALS: no acute distress, patient oriented x3, healthy appearing and alert GENERAL APPEARANCE: cooperative and comfortable HENMT: COMMON NORMALS: normocephalic HEAD & SCALP: normocephalic MOUTH: Normal oral and palatal mucosa present THROAT: posterior oropharynx normal and uvula midline Neck/C-Spine: COMMON NORMALS: supple GENERAL: Yes normal visual inspection Resp: COMMON NORMALS: normal respiratory effort, No retractions, No use of accessory muscles and clear to auscultation bilaterally AUSCULTATION: clear to auscultation bilaterally Cardio: COMMON NORMALS: regular rate, regular rhythm, S1 normal heart sound present, S2 normal heart sound present, No gallops present (Cardio), No clicks present (Cardio), No murmurs present (Cardio) and Peripheral pulses 2+ throughout RATE: regular rate RHYTHM: regular rhythm HEART SOUNDS: S1 normal heart sound present and S2 normal heart sound present PERIPHERAL PULSES: Peripheral pulses 2+ throughout GI: COMMON NORMALS: Normal to inspection, nondistended, normoactive bowel sounds present, Soft to palpation, non-tender and no masses PALPATION: Yes Soft to palpation : COMMON NORMALS: Yes no CVA tenderness BLADDER/KIDNEY EXAM: Yes no CVA tenderness Back/Pelvis: COMMON NORMALS: no CVA tenderness Extremity: NARRATIVE EXTREMITY EXAM: Left hand swelling, erythema and warmth. It is tender to palpation throughout the palm. Superficial bite croft seen around thenar region of thumb. Patient does have some red streaking into her left forearm. Findings suggestive of cellulitis that is progressing up the left arm. Neuro: COMMON NORMALS: patient oriented x3 and moves all extremities SENSORIUM/ORIENTATION: Yes alert Skin: GENERAL SKIN EXAM: dry skin Course Vital Signs: Vital signs: Vital Signs Temperature 97.9 F 04/17/22 09:04 Pulse Rate 71 04/17/22 12:53 Respiratory Rate 16 04/17/22 09:04 Blood Pressure 149/80 04/17/22 12:53 Pulse Oximetry 96 04/17/22 12:53 MDM - Animal Bite Medical Decision Making Patient is a 76-year-old female comes the ED with a cat bite of left hand. Cat bite occurred 3 days ago and yesterday she saw urgent care and was put on Augmentin. She has only been taking Augmentin now for under 24 hours. Vitals are stable. She has some erythema, swelling, warmth in left hand with red streaking into the left forearm. White blood cell count of 14.7 and a CRP of 118 with rest of CBC and CMP were unremarkable. X-ray of left hand shows no acute fractures or findings. Patient was given a dose of IV vancomycin here in the ED. She was stable for discharge home and was given strict return to ED precautions within the next 48 hours if not having any improvement. She was told to continue taking her previously prescribed Augmentin. Follow-up with PCP in the next 3 to 5 days for reevaluation. Patient understood and agreed with plan. Lab Data I reviewed the patient's lab results. : 04/17/22 09:55 04/17/22 09:55 Radiology Impressions Hand X-Ray 04/17/22 09:33 IMPRESSION: 1. 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 2. No fracture. Laboratory Results WBC 14.7 10^3/uL (4.0-10.0) H 04/17/22 09:55 RBC 4.61 10^6/uL (4.1-5.3) 04/17/22 09:55 Hgb 13.0 g/dL (11.5-15.3) 04/17/22 09:55 Hct 39.3 % (37.0-47.0) 04/17/22 09:55 MCV 85.2 fl (81-99) 04/17/22 09:55 MCH 28.2 pg (28.0-34.0) 04/17/22 09:55 MCHC 33.1 g/dL (30.0-36.0) 04/17/22 09:55 RDW 13.8 % (12.1-15.1) 04/17/22 09:55 Plt Count 166 10^3/cmm (130-400) 04/17/22 09:55 MPV 11.4 fL (7.4-10.4) H 04/17/22 09:55 Neut % (Auto) 83.1 % 04/17/22 09:55 Lymph % (Auto) 10.4 % 04/17/22 09:55 [place] % (Auto) 5.5 % 04/17/22 09:55 Eos % (Auto) 0.1 % 04/17/22 09:55 Baso % (Auto) 0.5 % 04/17/22 09:55 Neut # (Auto) 12.18 10^3/uL (1.8-7.7) H 04/17/22 09:55 Lymph # (Auto) 1.5 10^3/uL (0.8-4.8) 04/17/22 09:55 [place] # (Auto) 0.8 10^3/uL (0.2-0.9) 04/17/22 09:55 Eos # (Auto) 0.0 10^3/uL (0.0-0.8) 04/17/22 09:55 Baso # (Auto) 0.1 10^3/uL (0.0-0.1) 04/17/22 09:55 Nucleated RBC % (auto) 0 % 04/17/22 09:55 Nucleated RBCs # 0.0 /100WBC 04/17/22 09:55 Sodium 136 mmol/L (136-145) 04/17/22 09:55 Potassium 3.6 mmol/L (3.5-5.1) 04/17/22 09:55 Chloride 100 mmol/L (98-107) 04/17/22 09:55 Carbon Dioxide 26 mmol/L (22-29) 04/17/22 09:55 Anion Gap 13.6 (5-19) 04/17/22 09:55 BUN 20 mg/dL (8-23) 04/17/22 09:55 Creatinine 0.7 mg/dL (0.5-0.9) 04/17/22 09:55 GFR Calculation Not Reportable 04/17/22 09:55 Glucose 76 mg/dL (65-115) 04/17/22 09:55 Calculated Osmolality 283 mOsm/kg (285-295) L 04/17/22 09:55 Calcium 9.2 mg/dL (8.5-10.5) 04/17/22 09:55 Total Bilirubin 0.9 mg/dL (0.15-1.2) 04/17/22 09:55 AST 14 U/L (0-32) 04/17/22 09:55 ALT 13 U/L (0-33) 04/17/22 09:55 Alkaline Phosphatase 69 IU/L (35-105) 04/17/22 09:55 C-Reactive Protein 118.2 mg/L (0.0-4.9) H 04/17/22 09:55 Total Protein 6.6 g/dL (6.6-8.7) 04/17/22 09:55 Albumin 4.0 g/dL (3.5-5.2) 04/17/22 09:55 Globulin 2.6 g/dL (1.3-4.6) 04/17/22 09:55 Discharge Plan Discharge Patient Disposition: Home Clinical Impression: Cellulitis of left hand, Cat bite Condition: Stable Prescriptions: No Action (DME) Hinged Knee Brace Qty: 1 0RF Rx Instructions: As directed (DME) Custom Molded Orthotics See Rx Instructions .Route .MEDSUPPLY Qty: 1 0RF Rx Instructions: As directed amoxicillin-pot clavulanate 875-125 mg tablet 1 tab PO BID 10 Days Qty: 20 0RF ibuprofen 600 mg tablet 600 mg PO Q8H PRN (Reason: pain) Qty: 30 0RF multivitamin Tablet 1 tab PO DAILY 0RF hydrocodone-acetaminophen 5-325 mg tablet 1 tab PO TID PRN (Reason: Pain) 0RF losartan 100 mg tablet 100 mg PO QAM 0RF potassium gluconate 595 mg (99 mg) Tablet 595 mg PO DAILY 0RF meloxicam 15 mg tablet 15 mg PO QAM 0RF Vitamin D3 10 mcg (400 unit) Capsule 10 mcg PO DAILY 0RF Discharge Orders: Discharge ED (Routine); Ordered 04/17/22 Ordered By: Gurinder Solorzano Referrals: Fernanda Peralta PA [Primary Care Provider] - Discharge Diet: Regular Discharge Activity: Increase activity as tolerated Patient Instructions: Animal Bite (ED), Cellulitis (ED) Activity Restrictions/Additional Instructions: Follow-up with medical provider as directed in the next 2 to 3 days for reevaluation. Continue taking your previously prescribed Augmentin. If symptoms continue to progress/worsen by end of day tomorrow return to the ER for reevaluation. Please read and understand discharge instructions. Thank you for choosing [facility] for your healthcare needs today. Please realize this is an emergency room and that we are providing you with a medical screening exam and this may not be complete and all inclusive of all the testing and or work up that you may need to determine your ailment or severity of your illness. It is very important that you follow up as instructed or that you return to the Emergency Department should you have concerns or if your condition changes or worsens in any way. 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 Comprehensive Documented by User: Derrick Charles MD 04/30/22 14:52 HPI - Animal Bite General: Chief Complaint: Animal Bite Stated Complaint: left hand swollen Time Seen by Provider: 04/17/22 09:04 [facility] ED PFSH: Medical History Accelerated essential hypertension History of nonmelanoma skin cancer Surgical History H/O: hysterectomy History of left knee replacement Family History Other Hypertension Stroke Social History Smoking and tobacco status: never smoked Alcohol intake: never Course Vital Signs: Vital signs: Vital Signs Temperature 97.9 F 04/17/22 09:04 Pulse Rate 71 04/17/22 12:53 Respiratory Rate 16 04/17/22 09:04 Blood Pressure 149/80 04/17/22 12:53 Pulse Oximetry 96 04/17/22 12:53 MDM - Animal Bite Medical Decision Making Patient is a 76-year-old female comes the ED with a cat bite of left hand. Cat bite occurred 3 days ago and yesterday she saw urgent care and was put on Augmentin. She has only been taking Augmentin now for under 24 hours. Vitals are stable. She has some erythema, swelling, warmth in left hand with red streaking into the left forearm. White blood cell count of 14.7 and a CRP of 118 with rest of CBC and CMP were unremarkable. X-ray of left hand shows no acute fractures or findings. Patient was given a dose of IV vancomycin here in the ED. She was stable for discharge home and was given strict return to ED precautions within the next 48 hours if not having any improvement. She was told to continue taking her previously prescribed Augmentin. Follow-up with PCP in the next 3 to 5 days for reevaluation. Patient understood and agreed with plan. I discussed this case with CHRISTELLE Smith. I have reviewed documentation. Derrick Charles MD Emergency Medicine Lab Data : 04/17/22 09:55 04/17/22 09:55 Radiology Impressions Hand X-Ray 04/17/22 09:33 IMPRESSION: 1. 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 2. No fracture. Laboratory Results WBC 14.7 10^3/uL (4.0-10.0) H 04/17/22 09:55 RBC 4.61 10^6/uL (4.1-5.3) 04/17/22 09:55 Hgb 13.0 g/dL (11.5-15.3) 04/17/22 09:55 Hct 39.3 % (37.0-47.0) 04/17/22 09:55 MCV 85.2 fl (81-99) 04/17/22 09:55 MCH 28.2 pg (28.0-34.0) 04/17/22 09:55 MCHC 33.1 g/dL (30.0-36.0) 04/17/22 09:55 RDW 13.8 % (12.1-15.1) 04/17/22 09:55 Plt Count 166 10^3/cmm (130-400) 04/17/22 09:55 MPV 11.4 fL (7.4-10.4) H 04/17/22 09:55 Neut % (Auto) 83.1 % 04/17/22 09:55 Lymph % (Auto) 10.4 % 04/17/22 09:55 [place] % (Auto) 5.5 % 04/17/22 09:55 Eos % (Auto) 0.1 % 04/17/22 09:55 Baso % (Auto) 0.5 % 04/17/22 09:55 Neut # (Auto) 12.18 10^3/uL (1.8-7.7) H 04/17/22 09:55 Lymph # (Auto) 1.5 10^3/uL (0.8-4.8) 04/17/22 09:55 [place] # (Auto) 0.8 10^3/uL (0.2-0.9) 04/17/22 09:55 Eos # (Auto) 0.0 10^3/uL (0.0-0.8) 04/17/22 09:55 Baso # (Auto) 0.1 10^3/uL (0.0-0.1) 04/17/22 09:55 Nucleated RBC % (auto) 0 % 04/17/22 09:55 Nucleated RBCs # 0.0 /100WBC 04/17/22 09:55 Sodium 136 mmol/L (136-145) 04/17/22 09:55 Potassium 3.6 mmol/L (3.5-5.1) 04/17/22 09:55 Chloride 100 mmol/L (98-107) 04/17/22 09:55 Carbon Dioxide 26 mmol/L (22-29) 04/17/22 09:55 Anion Gap 13.6 (5-19) 04/17/22 09:55 BUN 20 mg/dL (8-23) 04/17/22 09:55 Creatinine 0.7 mg/dL (0.5-0.9) 04/17/22 09:55 GFR Calculation Not Reportable 04/17/22 09:55 Glucose 76 mg/dL (65-115) 04/17/22 09:55 Calculated Osmolality 283 mOsm/kg (285-295) L 04/17/22 09:55 Calcium 9.2 mg/dL (8.5-10.5) 04/17/22 09:55 Total Bilirubin 0.9 mg/dL (0.15-1.2) 04/17/22 09:55 AST 14 U/L (0-32) 04/17/22 09:55 ALT 13 U/L (0-33) 04/17/22 09:55 Alkaline Phosphatase 69 IU/L (35-105) 04/17/22 09:55 C-Reactive Protein 118.2 mg/L (0.0-4.9) H 04/17/22 09:55 Total Protein 6.6 g/dL (6.6-8.7) 04/17/22 09:55 Albumin 4.0 g/dL (3.5-5.2) 04/17/22 09:55 Globulin 2.6 g/dL (1.3-4.6) 04/17/22 09:55 Discharge Plan Discharge Patient Disposition: Home Clinical Impression: Cellulitis of left hand, Cat bite Condition: Stable Prescriptions: No Action (DME) Hinged Knee Brace Qty: 1 0RF Rx Instructions: As directed (DME) Custom Molded Orthotics See Rx Instructions .Route .MEDSUPPLY Qty: 1 0RF Rx Instructions: As directed amoxicillin-pot clavulanate 875-125 mg tablet 1 tab PO BID 10 Days Qty: 20 0RF ibuprofen 600 mg tablet 600 mg PO Q8H PRN (Reason: pain) Qty: 30 0RF multivitamin Tablet 1 tab PO DAILY 0RF hydrocodone-acetaminophen 5-325 mg tablet 1 tab PO TID PRN (Reason: Pain) 0RF losartan 100 mg tablet 100 mg PO QAM 0RF potassium gluconate 595 mg (99 mg) Tablet 595 mg PO DAILY 0RF meloxicam 15 mg tablet 15 mg PO QAM 0RF Vitamin D3 10 mcg (400 unit) Capsule 10 mcg PO DAILY 0RF Discharge Orders: Discharge ED (Routine); Ordered 04/17/22 Ordered By: Gurinder Solorzano Referrals: Fernanda Peralta PA [Primary Care Provider] - Discharge Diet: Regular Discharge Activity: Increase activity as tolerated Patient Instructions: Animal Bite (ED), Cellulitis (ED) Activity Restrictions/Additional Instructions: Follow-up with medical provider as directed in the next 2 to 3 days for reevaluation. Continue taking your previously prescribed Augmentin. If symptoms continue to progress/worsen by end of day tomorrow return to the ER for reevaluation. Please read and understand discharge instructions. Thank you for choosing [facility] for your healthcare needs today. Please realize this is an emergency room and that we are providing you with a medical screening exam and this may not be complete and all inclusive of all the testing and or work up that you may need to determine your ailment or severity of your illness. It is very important that you follow up as instructed or that you return to the Emergency Department should you have concerns or if your condition changes or worsens in any way. 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
--- NOTE | 2022-04-17 09:33 | XR_ITS ---
WS: [id number] Exam: XR hand LT min 3V* [id number] Date/Time of Exam: 04/17/2022 9:38 AM Reason For Exam: Left hand swelling and pain No acute fracture or dislocation. 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 No soft tissue foreign bodies. 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 XR/XR hand LT min 3V* [id number] IMPRESSION: 1. 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 2. No fracture.
[2022-04-17] MEDS: HYDROcodone-acetaminophen 5-325 mg Tablet 1 TAB PO (09:44)
[2022-04-17] MEDS: sodium chloride 0.9% 500 ML 999 ML IV (10:30)
[2022-04-17 10:34] LABS: Basophils # 0.1 10^3/uL (0.0-0.1); Basophils % 0.5 %; Eosinophils % 0.1 %; Hematocrit 39.3 % (37.0-47.0); Lymphocytes # 1.5 10^3/uL (0.8-4.8); Lymphocytes % 10.4 %; Mean Corpuscular HGB Conc 33.1 g/dL (30.0-36.0); Mean Corpuscular Hemoglobin 28.2 pg (28.0-34.0); Mean Corpuscular Volume 85.2 fl (81-99); Mean Platelet Volume 11.4 fL (7.4-10.4); Monocytes # 0.8 10^3/uL (0.2-0.9); Monocytes % 5.5 %; Neutrophils # 12.18 10^3/uL (1.8-7.7); Neutrophils % 83.1 %; Nucleated Red Blood Cells % 0 %; Platelet Count 166 10^3/cmm (130-400); Red Blood Count 4.61 10^6/uL (4.1-5.3); Red Cell Distribution Width 13.8 % (12.1-15.1); White Blood Count 14.7 10^3/uL (4.0-10.0)
[2022-04-17 10:37] VITALS: BP 178/88; PULSE 57; O2SAT 97
[2022-04-17 11:15] LABS: Alanine Aminotransferase 13 U/L (0-33); Alkaline Phosphatase 69 IU/L (35-105); Anion Gap 13.6 (5-19); Aspartate Amino Transferase 14 U/L (0-32); Blood Urea Nitrogen 20 mg/dL (8-23); C Reactive Protein 118.2 mg/L (0.0-4.9); Calcium 9.2 mg/dL (8.5-10.5); Carbon Dioxide 26 mmol/L (22-29); Chloride 100 mmol/L (98-107); Creatinine Clr Calc Pharmacy 61.4308; Globulin 2.6 g/dL (1.3-4.6); Glucose 76 mg/dL (65-115); Osmolality Calculated 283 mOsm/kg (285-295); Potassium 3.6 mmol/L (3.5-5.1); Sodium 136 mmol/L (136-145); Total Bilirubin 0.9 mg/dL (0.15-1.2); Total Protein 6.6 g/dL (6.6-8.7)
[2022-04-17 11:30] VITALS: BP 160/61; PULSE 60; O2SAT 96
[2022-04-17 12:53] VITALS: BP 149/80; PULSE 71; O2SAT 96
== END 2022-04-17 12:50 | disposition home or self-care (01) ==
PROVIDERS: Emergency Provider Physician Assistant; PCP Physician Assistant
DX: L03.114 Cellulitis of left upper limb (principal); S61.452A Open bite of left hand, initial encounter; W55.01XA Bitten by cat, initial encounter; I10 Essential (primary) hypertension
CPT/HCPCS: 36415; 73130; 80053; 85025; 86140; 87040; 96365; 96375; 99284; J2930; J3370; J7040; J7050

== ENCOUNTER 2022-05-05 20:11 | Emergency (ER) | payer MEDICARE, OTHER, SELFPAY ==
[2022-05-05 20:25] VITALS: BP 154/88; PULSE 132; RESP 23; TEMP 41; O2SAT 91; BMI 26.6
[2022-05-05 20:39] LABS: Basophils # 0.1 10^3/uL (0.0-0.1); Basophils % 1.1 %; Eosinophils # 0.1 10^3/uL (0.0-0.8); Eosinophils % 0.6 %; Hemoglobin 12.8 g/dL (11.5-15.3); Lymphocytes % 12.3 %; Mean Corpuscular HGB Conc 34.6 g/dL (30.0-36.0); Mean Corpuscular Volume 83.7 fl (81-99); Mean Platelet Volume 11.5 fL (7.4-10.4); Monocytes # 0.3 10^3/uL (0.2-0.9); Monocytes % 3.1 %; Neutrophils % 82.5 %; Nucleated Red Blood Cells % 0 %; Platelet Count 158 10^3/cmm (130-400); Red Blood Count 4.42 10^6/uL (4.1-5.3); Red Cell Distribution Width 13.5 % (12.1-15.1)
--- NOTE | 2022-05-05 20:40 | CTR_ITS ---
PROCEDURE INFORMATION: Exam: CT Abdomen And Pelvis With Contrast Exam date and time: 05/05/2022 9:32 PM Age: 76 years old Clinical indication: Fever; Abdominal pain; Generalized; Additional info: Abd pain TECHNIQUE: Imaging protocol: Computed tomography of the abdomen and pelvis with contrast. Radiation optimization: All CT scans at this facility use at least one of these dose optimization techniques: automated exposure control; mA and/or kV adjustment per patient size (includes targeted exams where dose is matched to clinical indication); or iterative reconstruction. Contrast material: OMNI 350; Contrast volume: 90 ml; Contrast route: INTRAVENOUS (IV); COMPARISON: US Renal Kidney Structu* [id number] 05/05/2018 7:37 AM RADIATION DOSE METRICS: Total DLP (mGy-cm): 1167.63 FINDINGS: Lungs: Bibasilar atelectasis versus minimal infiltrate. Liver: Several subcentimeter hepatic cysts. Gallbladder and bile ducts: Normal. No calcified stones. No ductal dilation. Pancreas: Normal. No ductal dilation. Spleen: Normal. No splenomegaly. Adrenal glands: Normal. No mass. Kidneys and ureters: Right kidney cyst, negative for follow-up advised. Stomach and bowel: Prominent fluid in the small bowel without dilation may reflect a mild enteritis in minimal diverticulosis without diverticulitis. Appendix: No evidence of appendicitis. Intraperitoneal space: Unremarkable. No free air. No significant fluid collection. Vasculature: Unremarkable. No abdominal aortic aneurysm. Lymph nodes: Unremarkable. No enlarged lymph nodes. Urinary bladder: Unremarkable as visualized. Reproductive: Unremarkable as visualized. Bones/joints: Unremarkable. No acute fracture. Soft tissues: Unremarkable. CT/CT abdomen pelvis w con* [id number] IMPRESSION: 1. Prominent fluid in the small bowel without dilation may reflect a mild enteritis in minimal diverticulosis without diverticulitis. 2. Bibasilar atelectasis versus minimal infiltrate. 3. Several subcentimeter hepatic cysts. 4. Right kidney cyst, negative for follow-up advised.
--- NOTE | 2022-05-05 20:42 | ED_ITS ---
Documented by User: Chichi Harris MD 05/06/22 20:16 HPI - General Adult General: Chief complaint: Fever Stated complaint: fever Time Seen by Provider: 05/05/22 20:32 History of Present Illness: Patient is a 76-year-old female with history of hypertension presents emergency room with neurolysed weakness, nausea/vomiting, and abdominal pain. Patient tells me that she was outside for 15 minutes earlier around 5pm. Shortly after, patient's son came to visit her from [facility]. Patient's son noted the patient was warm to touch and took her temperature initially he saw the temperature was 102.5 degrees. Patient then had a repeat temperature of 105.1 degrees. Patient reports nausea, generalized weakness, fatigue around the time when the temperature appears to be elevated. Of note, patient also reports ongoing abdominal pain for the last day without any vomiting diarrhea melena or hematochezia. Patient denies any prior abdominal surgeries. Currently denies any complaints. Patient denies any chest pain or shortness of breath or palpitation. No cough runny nose or sore throat. Patient denying being outside for prolonged period of time today. Of note, patient was recently bitten by ticks 2 weeks ago. Onset: earlier today Duration:ongoing Location:home Severity:moderate Associated symptoms: Reports malaise and nausea; Deny chest pain, dyspnea, rash, palpitations or vomiting Review of Systems Const: Reports: fatigue, malaise and other (+generalized weakness); Denies: fever(s) or chills Eyes: Denies: change in vision ENMT: Denies: mouth pain Card: Denies: chest pain or palpitations Resp: Denies: dyspnea or non-productive cough GI: Reports: abdominal pain and nausea; Denies: vomiting or diarrhea : Denies: dysuria Musc: Denies: extremity pain Skin/Breast: Denies: rash or new lesions Neuro: Denies: weakness in extremities Psych: Reports: other (Normal mood) Tyler/Lymph: Denies: easy bruising PFSH ED PFSH: Medical History Accelerated essential hypertension History of nonmelanoma skin cancer Surgical History H/O: hysterectomy History of left knee replacement Family History Other Hypertension Stroke Social History Smoking and tobacco status: never smoked Alcohol intake: never Physical Exam Const: COMMON NORMALS: alert HENMT: COMMON NORMALS: atraumatic HEAD & SCALP: atraumatic MOUTH: moist mucous membranes abnormal Eye: COMMON NORMALS: EOMs intact bilaterally and conjunctivae normal CON JUNCTIVA: Yes conjunctivae normal Neck/C-Spine: COMMON NORMALS: full ROM and supple Resp: COMMON NORMALS: normal respiratory effort and clear to auscultation bilaterally AUSCULTATION: clear to auscultation bilaterally Cardio: RATE: tachycardic GI: COMMON NORMALS: Soft to palpation PALPATION: Yes Soft to palpation OTHER: +mild diffuse TTP. NO guarding rebound, guarding, rigidity. No CVA tenderness to percussion. Neg Clarke/Neg McBurney's point tenderness, no suprabupic tenderness to palpation. Extremity: COMMON NORMALS: full ROM Neuro: SENSORIUM/ORIENTATION: Yes alert MOTOR EXAM: No Abnormal motor strength present and Other motor observations present (no focal motor deficits) Psych: COMMON NORMALS: speech normal SPEECH: Yes normal speech MOOD & AFFECT: Yes euthymic mood Course Vital Signs: Vital signs: Vital Signs Temperature 101.6 F H 05/05/22 22:22 Pulse Rate 97 05/05/22 22:16 Respiratory Rate 23 H 05/05/22 20:25 Blood Pressure 150/70 05/05/22 22:16 Pulse Oximetry 97 05/05/22 22:16 [facility] - General Adult Medical Decision Making 76-year-old female history hypertension presenting to emergency room for evaluation of generalized weakness abdominal pain nausea vomiting. On arrival, patient was found to have temperature of 105.3 and appears to be dry and tachycardic to the 120s. Fan with tepid water, ice packs to the axilla, and IV fluids were applied. On repeated reassessment, patient was noted to have a normal temperature. Lab work-up showed white count 8.0. Rest of lab did not show any signs of endorgan damage. CT ab pelvis negative for any acute abdominal findings. After IVF, patient's heart rate improved. It is unclear what is the cause of patient's elevated temperature. At the present time, do not suspect acute sepsis or acute infection given the fact the patient minimal white count, no other focal findings. Patient presents here with fever was found to have urinary tract infection along with a pneumonia. I spoke to patient at length she states she feels much improved and informed her she has a UTI and pneumonia did offer admission she states she like to try antibiotics at home we will give her IV Levaquin here prescribe her Levaquin for home. She is to follow-up with PCP and return if worsening she understands agrees to plan. Lab Data : 05/05/22 20:35 05/05/22 20:35 Radiology Impressions Abdomen/Pelvis CT 05/05/22 20:40 IMPRESSION: 1. Prominent fluid in the small bowel without dilation may reflect a mild enteritis in minimal diverticulosis without diverticulitis. 2. Bibasilar atelectasis versus minimal infiltrate. 3. Several subcentimeter hepatic cysts. 4. Right kidney cyst, negative for follow-up advised. Chest X-Ray 05/05/22 23:02 IMPRESSION: Left mid to lower lung field minimal ground-glass airspace infiltrate suspected. Laboratory Results WBC 8.0 10^3/uL (4.0-10.0) 05/05/22 20:35 RBC 4.42 10^6/uL (4.1-5.3) 05/05/22 20:35 Hgb 12.8 g/dL (11.5-15.3) 05/05/22 20:35 Hct 37.0 % (37.0-47.0) 05/05/22 20:35 MCV 83.7 fl (81-99) 05/05/22 20:35 MCH 29.0 pg (28.0-34.0) 05/05/22 20:35 MCHC 34.6 g/dL (30.0-36.0) 05/05/22 20:35 RDW 13.5 % (12.1-15.1) 05/05/22 20:35 Plt Count 158 10^3/cmm (130-400) 05/05/22 20:35 MPV 11.5 fL (7.4-10.4) H 05/05/22 20:35 Neut % (Auto) 82.5 % 05/05/22 20:35 Lymph % (Auto) 12.3 % 05/05/22 20:35 [place] % (Auto) 3.1 % 05/05/22 20:35 Eos % (Auto) 0.6 % 05/05/22 20:35 Baso % (Auto) 1.1 % 05/05/22 20:35 Neut # (Auto) 6.60 10^3/uL (1.8-7.7) 05/05/22 20:35 Lymph # (Auto) 1.0 10^3/uL (0.8-4.8) 05/05/22 20:35 [place] # (Auto) 0.3 10^3/uL (0.2-0.9) 05/05/22 20:35 Eos # (Auto) 0.1 10^3/uL (0.0-0.8) 05/05/22 20:35 Baso # (Auto) 0.1 10^3/uL (0.0-0.1) 05/05/22 20:35 Nucleated RBC % (auto) 0 % 05/05/22 20:35 Nucleated RBCs # 0.0 /100WBC 05/05/22 20:35 Sodium 135 mmol/L (136-145) L 05/05/22 20:35 Potassium 4.5 mmol/L (3.5-5.1) 05/05/22 20:35 Chloride 101 mmol/L (98-107) 05/05/22 20:35 Carbon Dioxide 22 mmol/L (22-29) 05/05/22 20:35 Anion Gap 16.5 (5-19) 05/05/22 20:35 BUN 19 mg/dL (8-23) 05/05/22 20:35 Creatinine 0.7 mg/dL (0.5-0.9) 05/05/22 20:35 GFR Calculation Not Reportable 05/05/22 20:35 Glucose 121 mg/dL (65-115) H 05/05/22 20:35 Calculated Osmolality 284 mOsm/kg (285-295) L 05/05/22 20:35 Calcium 9.7 mg/dL (8.5-10.5) 05/05/22 20:35 Total Bilirubin 0.6 mg/dL (0.15-1.2) 05/05/22 20:35 AST 19 U/L (0-32) 05/05/22 20:35 ALT 13 U/L (0-33) 05/05/22 20:35 Alkaline Phosphatase 78 IU/L (35-105) 05/05/22 20:35 Creatine Kinase 55 U/L (26-192) 05/05/22 20:35 Troponin T Baseline 6 ng/L (0-10) 05/05/22 20:35 Troponin T 120 Minute 10.12 ng/L (0-10) H 05/05/22 22:00 Delta Troponin T 4.12 ABS# (0-10) 05/05/22 22:00 Total Protein 6.9 g/dL (6.6-8.7) 05/05/22 20:35 Albumin 4.1 g/dL (3.5-5.2) 05/05/22 20:35 Globulin 2.8 g/dL (1.3-4.6) 05/05/22 20:35 Lipase 25 U/L (13-60) 05/05/22 20:35 TSH 3.57 uIU/mL (0.27-4.20) 05/05/22 20:35 Free T4 1.24 ng/dL (0.82-1.77) 05/05/22 20:35 Urine Color Colorless (Yellow) 05/05/22 22:43 Urine Appearance Sl hazy (CLEAR) 05/05/22 22:43 Urine pH 6 (5-7) 05/05/22 22:43 Ur Specific [place] 1.005 (1.005-1.030) 05/05/22 22:43 Urine Protein Neg (Negative) 05/05/22 22:43 Urine Glucose (UA) Norm (Normal) 05/05/22 22:43 Urine Ketones Negative (Negative) 05/05/22 22:43 Urine Blood 2+ (Negative) H 05/05/22 22:43 Urine Nitrate Positive (Negative) H 05/05/22 22:43 Urine Bilirubin Neg (Negative) 05/05/22 22:43 Urine Urobilinogen Norm mg/dL (Negative) 05/05/22 22:43 Ur Leukocyte Esterase 2+ (Negative) H 05/05/22 22:43 Urine RBC 0-4 /hpf (0-2) H 05/05/22 22:43 Urine WBC Too numerous to cnt /hpf (0-5) H 05/05/22 22:43 Ur Squamous Epith Cells 0-4 /hpf (0-5) H 05/05/22 22:43 Amorphous Sediment Not Reportable 05/05/22 22:43 Urine Bacteria 3+ /hpf (NONE) H 05/05/22 22:43 Urine Mucus Trace /hpf 05/05/22 22:43 Discharge Plan Discharge Patient Disposition: Home Clinical Impression: Fever, Acute UTI, Pneumonia Condition: Stable Prescriptions: New levofloxacin 750 mg tablet 750 mg PO DAILY 5 Days Qty: 5 0RF No Action (DME) Hinged Knee Brace Qty: 1 0RF Rx Instructions: As directed (DME) Custom Molded Orthotics See Rx Instructions .Route .MEDSUPPLY Qty: 1 0RF Rx Instructions: As directed ibuprofen 600 mg tablet 600 mg PO Q8H PRN (Reason: pain) Qty: 30 0RF multivitamin Tablet 1 tab PO DAILY 0RF hydrocodone-acetaminophen 5-325 mg tablet 1 tab PO TID PRN (Reason: Pain) 0RF losartan 100 mg tablet 100 mg PO QAM 0RF potassium gluconate 595 mg (99 mg) Tablet 595 mg PO DAILY 0RF meloxicam 15 mg tablet 15 mg PO QAM 0RF cholecalciferol (vitamin D3) [Vitamin D3] 10 mcg (400 unit) Capsule 10 mcg PO DAILY 0RF Probiotic Acidophilus 1.5 mg (250 million cell) Capsule 2,000 mmu cells PO DAILY 0RF Discharge Orders: Discharge ED (Routine); Ordered 05/05/22 Ordered By: Isaiah Valera Referrals: Fernanda Peralta PA [Primary Care Provider] - Discharge Diet: Advance as tolerated Discharge Activity: Increase activity as tolerated Patient Instructions: Fever in Adults (ED), Pneumonia (ED) Activity Restrictions/Additional Instructions: Come back if you have any new or concerning issues including new fever, fatigue, nausea/vomiting, diarrhea, abdominal pain, chest pain shortness of breath or any new or concerning complaints. 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 [employer]ang Fwd Exam Comprehensive Documented by User: Isaiah Valera MD 05/05/22 23:44 HPI - General Adult General: Chief complaint: Fever Stated complaint: fever Time Seen by Provider: 05/05/22 20:32 [facility] ED PFSH: Medical History Accelerated essential hypertension History of nonmelanoma skin cancer Surgical History H/O: hysterectomy History of left knee replacement Family History Other Hypertension Stroke Social History Smoking and tobacco status: never smoked Alcohol intake: never Course Vital Signs: Vital signs: Vital Signs Temperature 101.6 F H 05/05/22 22:22 Pulse Rate 97 05/05/22 22:16 Respiratory Rate 23 H 05/05/22 20:25 Blood Pressure 150/70 05/05/22 22:16 Pulse Oximetry 97 05/05/22 22:16 [facility] - General Adult Medical Decision Making 76-year-old female history hypertension presenting to emergency room for evaluation of generalized weakness abdominal pain nausea vomiting. On arrival, patient was found to have temperature of 105.3 and appears to be dry and tachycardic to the 120s. Fan with tepid water, ice packs to the axilla, and IV fluids were applied. On repeated reassessment, patient was noted to have a normal temperature. Lab work-up showed white count 8.0. Rest of lab did not show any signs of endorgan damage. CT ab pelvis negative for any acute abdominal findings. After IVF, patient's heart rate improved. It is unclear what is the cause of patient's elevated temperature. At the present time, do not suspect acute sepsis or acute infection given the fact the patient minimal white count, no other focal findings. Disposition: Discharge. Patient counseled regarding diagnostic impression, treatment plan. Patient given ED strict return precautions to return for continuation, worsening, or development of new symptoms. Instructed to f/u w/ PCP regarding symptoms today. Patient verbalized understanding. Patient presents here with fever was found to have urinary tract infection along with a pneumonia. I spoke to patient at length she states she feels much improved and informed her she has a UTI and pneumonia did offer admission she states she like to try antibiotics at home we will give her IV Levaquin here prescribe her Levaquin for home. She is to follow-up with PCP and return if worsening she understands agrees to plan. Lab Data : 05/05/22 20:35 05/05/22 20:35 Radiology Impressions Abdomen/Pelvis CT 05/05/22 20:40 IMPRESSION: 1. Prominent fluid in the small bowel without dilation may reflect a mild enteritis in minimal diverticulosis without diverticulitis. 2. Bibasilar atelectasis versus minimal infiltrate. 3. Several subcentimeter hepatic cysts. 4. Right kidney cyst, negative for follow-up advised. Chest X-Ray 05/05/22 23:02 IMPRESSION: Left mid to lower lung field minimal ground-glass airspace infiltrate suspected. Laboratory Results WBC 8.0 10^3/uL (4.0-10.0) 05/05/22 20:35 RBC 4.42 10^6/uL (4.1-5.3) 05/05/22 20:35 Hgb 12.8 g/dL (11.5-15.3) 05/05/22 20:35 Hct 37.0 % (37.0-47.0) 05/05/22 20:35 MCV 83.7 fl (81-99) 05/05/22 20:35 MCH 29.0 pg (28.0-34.0) 05/05/22 20:35 MCHC 34.6 g/dL (30.0-36.0) 05/05/22 20:35 RDW 13.5 % (12.1-15.1) 05/05/22 20:35 Plt Count 158 10^3/cmm (130-400) 05/05/22 20:35 MPV 11.5 fL (7.4-10.4) H 05/05/22 20:35 Neut % (Auto) 82.5 % 05/05/22 20:35 Lymph % (Auto) 12.3 % 05/05/22 20:35 [place] % (Auto) 3.1 % 05/05/22 20:35 Eos % (Auto) 0.6 % 05/05/22 20:35 Baso % (Auto) 1.1 % 05/05/22 20:35 Neut # (Auto) 6.60 10^3/uL (1.8-7.7) 05/05/22 20:35 Lymph # (Auto) 1.0 10^3/uL (0.8-4.8) 05/05/22 20:35 [place] # (Auto) 0.3 10^3/uL (0.2-0.9) 05/05/22 20:35 Eos # (Auto) 0.1 10^3/uL (0.0-0.8) 05/05/22 20:35 Baso # (Auto) 0.1 10^3/uL (0.0-0.1) 05/05/22 20:35 Nucleated RBC % (auto) 0 % 05/05/22 20:35 Nucleated RBCs # 0.0 /100WBC 05/05/22 20:35 Sodium 135 mmol/L (136-145) L 05/05/22 20:35 Potassium 4.5 mmol/L (3.5-5.1) 05/05/22 20:35 Chloride 101 mmol/L (98-107) 05/05/22 20:35 Carbon Dioxide 22 mmol/L (22-29) 05/05/22 20:35 Anion Gap 16.5 (5-19) 05/05/22 20:35 BUN 19 mg/dL (8-23) 05/05/22 20:35 Creatinine 0.7 mg/dL (0.5-0.9) 05/05/22 20:35 GFR Calculation Not Reportable 05/05/22 20:35 Glucose 121 mg/dL (65-115) H 05/05/22 20:35 Calculated Osmolality 284 mOsm/kg (285-295) L 05/05/22 20:35 Calcium 9.7 mg/dL (8.5-10.5) 05/05/22 20:35 Total Bilirubin 0.6 mg/dL (0.15-1.2) 05/05/22 20:35 AST 19 U/L (0-32) 05/05/22 20:35 ALT 13 U/L (0-33) 05/05/22 20:35 Alkaline Phosphatase 78 IU/L (35-105) 05/05/22 20:35 Creatine Kinase 55 U/L (26-192) 05/05/22 20:35 Troponin T Baseline 6 ng/L (0-10) 05/05/22 20:35 Troponin T 120 Minute 10.12 ng/L (0-10) H 05/05/22 22:00 Delta Troponin T 4.12 ABS# (0-10) 05/05/22 22:00 Total Protein 6.9 g/dL (6.6-8.7) 05/05/22 20:35 Albumin 4.1 g/dL (3.5-5.2) 05/05/22 20:35 Globulin 2.8 g/dL (1.3-4.6) 05/05/22 20:35 Lipase 25 U/L (13-60) 05/05/22 20:35 TSH 3.57 uIU/mL (0.27-4.20) 05/05/22 20: Free T4 1.24 ng/dL (0.82-1.77) 05/05/22 20:35 Urine Color Colorless (Yellow) 05/05/22 22:43 Urine Appearance Sl hazy (CLEAR) 05/05/22 22:43 Urine pH 6 (5-7) 05/05/22 22:43 Ur Specific [place] 1.005 (1.005-1.030) 05/05/22 22:43 Urine Protein Neg (Negative) 05/05/22 22:43 Urine Glucose (UA) Norm (Normal) 05/05/22 22:43 Urine Ketones Negative (Negative) 05/05/22 22:43 Urine Blood 2+ (Negative) H 05/05/22 22:43 Urine Nitrate Positive (Negative) H 05/05/22 22:43 Urine Bilirubin Neg (Negative) 05/05/22 22:43 Urine Urobilinogen Norm mg/dL (Negative) 05/05/22 22:43 Ur Leukocyte Esterase 2+ (Negative) H 05/05/22 22:43 Urine RBC 0-4 /hpf (0-2) H 05/05/22 22:43 Urine WBC Too numerous to cnt /hpf (0-5) H 05/05/22 22:43 Ur Squamous Epith Cells 0-4 /hpf (0-5) H 05/05/22 22:43 Amorphous Sediment Not Reportable 05/05/22 22:43 Urine Bacteria 3+ /hpf (NONE) H 05/05/22 22:43 Urine Mucus Trace /hpf 05/05/22 22:43 Discharge Plan Discharge Patient Disposition: Home Clinical Impression: Fever, Acute UTI, Pneumonia Condition: Stable Prescriptions: New levofloxacin 750 mg tablet 750 mg PO DAILY 5 Days Qty: 5 0RF No Action (DME) Hinged Knee Brace Qty: 1 0RF Rx Instructions: As directed (DME) Custom Molded Orthotics See Rx Instructions .Route .MEDSUPPLY Qty: 1 0RF Rx Instructions: As directed ibuprofen 600 mg tablet 600 mg PO Q8H PRN (Reason: pain) Qty: 30 0RF multivitamin Tablet 1 tab PO DAILY 0RF hydrocodone-acetaminophen 5-325 mg tablet 1 tab PO TID PRN (Reason: Pain) 0RF losartan 100 mg tablet 100 mg PO QAM 0RF potassium gluconate 595 mg (99 mg) Tablet 595 mg PO DAILY 0RF meloxicam 15 mg tablet 15 mg PO QAM 0RF cholecalciferol (vitamin D3) [Vitamin D3] 10 mcg (400 unit) Capsule 10 mcg PO DAILY 0RF Probiotic Acidophilus 1.5 mg (250 million cell) Capsule 2,000 mmu cells PO DAILY 0RF Discharge Orders: Discharge ED (Routine); Ordered 05/05/22 Ordered By: Isaiah Valera Referrals: Fernanda Peralta PA [Primary Care Provider] - Discharge Diet: Advance as tolerated Discharge Activity: Increase activity as tolerated Patient Instructions: Fever in Adults (ED), Pneumonia (ED) Activity Restrictions/Additional Instructions: Come back if you have any new or concerning issues including new fever, fatigue, nausea/vomiting, diarrhea, abdominal pain, chest pain shortness of breath or any new or concerning complaints. 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 [place] Fwd Exam Comprehensive
[2022-05-05 20:55] LABS: Alanine Aminotransferase 13 U/L (0-33); Albumin Level 4.1 g/dL (3.5-5.2); Alkaline Phosphatase 78 IU/L (35-105); Aspartate Amino Transferase 19 U/L (0-32); Blood Urea Nitrogen 19 mg/dL (8-23); Calcium 9.7 mg/dL (8.5-10.5); Carbon Dioxide 22 mmol/L (22-29); Chloride 101 mmol/L (98-107); Creatine Phosphokinase 55 U/L (26-192); Globulin 2.8 g/dL (1.3-4.6); Glucose 121 mg/dL (65-115); Lipase 25 U/L (13-60); Osmolality Calculated 284 mOsm/kg (285-295); Sodium 135 mmol/L (136-145); Total Bilirubin 0.6 mg/dL (0.15-1.2); Total Protein 6.9 g/dL (6.6-8.7)
[2022-05-05 20:56] LABS: Anion Gap 16.5 (5-19); Potassium 4.5 mmol/L (3.5-5.1)
[2022-05-05] MEDS: sodium chloride 0.9% 1,000 ML 999 ML IV ×2 (21:01→22:49)
[2022-05-05] MEDS: acetaminophen 500 mg Tablet 1000 MG PO (21:01)
[2022-05-05 21:13] LABS: Troponin(5th) Baseline 6 ng/L (0-10)
[2022-05-05 21:35] VITALS: BP 165/71; PULSE 115; TEMP 37.2; O2SAT 95
[2022-05-05] MEDS: iohexol 300 mg/mL 100 mL Btl IV (21:52)
[2022-05-05 21:57] LABS: Free T4 Free Thyroxine 1.24 ng/dL (0.82-1.77); Thyroid Stimulating Hormone 3.57 uIU/mL (0.27-4.20)
[2022-05-05 22:16] VITALS: BP 150/70; PULSE 97; O2SAT 97
[2022-05-05 22:22] VITALS: TEMP 38.7
[2022-05-05 22:26] LABS: Troponin 5 2HR 10.12 ng/L (0-10)
[2022-05-05 22:28] LABS: Troponin 5 2HR Delta 4.12 ABS# (0-10)
[2022-05-05 23:02] LABS: Add Urine Culture? Yes; Add Urine Microscopic? YES; Bacteria Urine 3+ /hpf; Bilirubin Urine Neg (Negative); Blood Urine 2+ (Negative); Glucose Urine UA Norm (Normal); Ketones Urine Negative (Negative); Leukocyte Esterase Urine 2+ (Negative); Mucus Urine TRACE /hpf; Nitrate Urine Positive (Negative); Protein Urine Neg (Negative); RBC Urine 0-4 /hpf (0-2); Specific Gravity, Urine 1.005 (1.005-1.030); Squamous Epithelial Cell Urine 0-4 /hpf (0-5); Urine Appearance SL Hazy (CLEAR); Urine Color Colorless (Yellow); Urobilinogen Urine Norm (Negative); WBC Urine TOO NUMEROUS TO CNT /hpf (0-5); pH Urine 6 (5-7)
--- NOTE | 2022-05-05 23:02 | XRR_ITS ---
PROCEDURE INFORMATION: Exam: XR Chest Exam date and time: 05/05/2022 11:05 PM Age: 76 years old Clinical indication: Fever and shortness of breath; Additional info: Fever, sudden onset, TECHNIQUE: Imaging protocol: Radiologic exam of the chest. Views: 1 view. COMPARISON: CR XR chest 1V portable [id number] 04/11/2022 2:11 PM FINDINGS: Lungs: Left mid to lower lung field minimal ground-glass airspace infiltrate suspected. Pleural spaces: Unremarkable. No pleural effusion. No pneumothorax. Heart/Mediastinum: Unremarkable. No cardiomegaly. Bones/joints: Unremarkable. XR/XR chest 1V portable [id number] IMPRESSION: Left mid to lower lung field minimal ground-glass airspace infiltrate suspected.
[2022-05-05] MEDS: levofloxacin-dextrose 5 % 500 MG/100 ML PREMIX 100 MG IV (23:37)
[2022-05-07 15:33] LABS: Lyme AB Screen <0.90 index
[2022-05-13 17:37] LABS: RMSF IGG DETECTED; RMSF IGM NOT DETECTED
[2022-05-14 21:47] LABS: E. Chaffeensis AB IGG <1:64; E. Chaffeensis AB IGM <1:20
== END 2022-05-06 00:40 | disposition home or self-care (01) ==
PROVIDERS: Emergency Medicine; Emergency Provider Emergency Medicine; PCP Physician Assistant
DX: N39.0 Urinary tract infection, site not specified (principal); J18.9 Pneumonia, unspecified organism; R50.9 Fever, unspecified; I10 Essential (primary) hypertension
CPT/HCPCS: 71045; 74177; 80053; 81001; 82550; 83690; 84439; 84443; 84484; 85025; 86618; 86666; 86757; 87077; 87086; 87186; 96365; 99285; J1956; J7030; Q9967

== ENCOUNTER 2022-06-05 20:00 | Outpatient (CLI) | payer MEDICARE, OTHER, SELFPAY | END 2022-06-05 20:01 | disposition home or self-care (01) | LOC: SLEEP 06-06 06:32 | PROVIDERS: PCP Physician Assistant; Visit Provider Anesthesiology Pain Medicine | DX: G47.33 Obstructive sleep apnea (adult) (pediatric) (principal) | CPT/HCPCS: 95811 ==

== ENCOUNTER 2022-11-19 10:28 | Observation (INO) | payer MEDICARE, OTHER, SELFPAY ==
[2022-11-19] VITALS (17 sets, daily range): BP systolic 131–197; BP diastolic 59–100; PULSE 56–85; RESP 11–24; TEMP 36.4–36.7; O2SAT 96–100
--- NOTE | 2022-11-19 10:43 | ECG_ITS ---
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 Measurements Intervals [place] Rate: 76 P: 59 AK: 196 QRS: 0 QRSD: 104 T: 57 QT: 377 QTc: 426 Interpretive Statements SINUS RHYTHM POSSIBLE LEFT ATRIAL ENLARGEMENT [-0.1mV P-WAVE IN V1/V2] INCOMPLETE RIGHT BUNDLE BRANCH BLOCK [90+ ms QRS DURATION, TERMINAL R IN V1/V2, 40+ ms S IN I/aVL/V4/V5/V6] POSSIBLE ANTERIOR MYOCARDIAL INFARCTION , OF INDETERMINATE AGE [30 ms Q WAVE IN V3/V4, OR R < 0.2 mV IN V4] Compared to ECG 04/11/2022 14:38:18 Incomplete right bundle-branch block now present Myocardial infarct finding now present Sinus bradycardia no longer present Electronically Signed On 11-19-2022 21:45:26 GENERAL CLEANER by Iraj Tamez M.D. [id number]
--- NOTE | 2022-11-19 10:43 | XR_ITS ---
WS: [id number] Exam: XR chest 1V portable [id number] Date/Time of Exam: 11/19/2022 10:43 AM Reason For Exam: dyspnea/cough Comparison 05/05/2022. The lungs are hyperinflated and clear. No pleural effusions. Normal cardiomediastinal silhouette. Mil d dextroscoliosis of the T-spine. Monitoring leads superimpose the chest. XR/XR chest 1V portable [id number] IMPRESSION: 1. No acute cardiopulmonary finding. 2. Mild pulmonary hyperinflation.
--- NOTE | 2022-11-19 10:56 | ED_ITS ---
HPI - Dizziness General: Chief Complaint: Dizziness Stated Complaint: High HR, SOB Time Seen by Provider: 11/19/22 10:42 PFSH ED PFSH: Medical History Accelerated essential hypertension History of nonmelanoma skin cancer Surgical History H/O: hysterectomy History of left knee replacement Family History Other Hypertension Stroke Social History Smoking and tobacco status: never smoked Alcohol intake: never Course Vital Signs: Vital signs: Vital Signs Temperature 98.1 F 11/19/22 10:34 Pulse Rate 85 11/19/22 10:34 Respiratory Rate 16 11/19/22 10:34 Blood Pressure 197/99 11/19/22 10:34 Pulse Oximetry 98 11/19/22 10:34 Oxygen Delivery Me thod 11/19/22 10:34 Discharge Plan Discharge Condition: Stable Prescriptions: No Action (DME) Hinged Knee Brace Qty: 1 0RF Rx Instructions: As directed (DME) Custom Molded Orthotics See Rx Instructions .Route .MEDSUPPLY Qty: 1 0RF Rx Instructions: As directed ibuprofen 600 mg tablet 600 mg PO Q8H PRN (Reason: pain) Qty: 30 0RF multivitamin Tablet 1 tab PO DAILY hydrocodone-acetaminophen 5-325 mg tablet 1 tab PO TID PRN (Reason: Pain) losartan 100 mg tablet 100 mg PO QAM potassium gluconate 595 mg (99 mg) Tablet 595 mg PO DAILY meloxicam 15 mg tablet 15 mg PO QAM cholecalciferol (vitamin D3) [Vitamin D3] 10 mcg (400 unit) Capsule 10 mcg PO DAILY Probiotic Acidophilus 1.5 mg (250 million cell) Capsule 2,000 mmu cells PO DAILY Referrals: Fernanda Peralta PA [Primary Care Provider] - Coding Level of Care Code ED Pre Algebra Teacher for Simran Nicholson
--- NOTE | 2022-11-19 11:06 | ED_ITS ---
HPI - Weakness General: Chief complaint: Dizziness Stated complaint: High HR, SOB Time Seen by Provider: 11/19/22 10:42 History of Present Illness: Ms. Castaneda is a 76-year-old lady with history of bradycardia, hypertension presenting to the emergency department due to episode of generalized weakness. She reports being at her baseline health past few days and had sudden onset of a fluttering sensation in her chest, difficulty catching her breath, and a presyncopal type feeling. She went to lay down however this lasted probably 30 to 45 minutes. She does report similar symptoms a few episodes in the past over the years however typically these resolve quicker. Denies known specific provoking event. Intensity symptoms when present was moderate to severe. Course has resolved. No other specific changes in health, exacerbating, or alleviating factors identified. Onset (ago): minute(s) Duration: now resolved Location: generalized Severity: severe Quality: other Relieving factors: none Exacerbating factors: none Context: history of similar (A few episodes over a number of years) Review of Systems General: Reports: 10 or more systems reviewed and unremarkable except in HPI and below PFSH ED PFSH: Medical History Accelerated essential hypertension Heart palpitations History of nonmelanoma skin cancer MCL sprain of right knee Surgical History H/O: hysterectomy History of left knee replacement Family History Other Hypertension Stroke Social History Smoking and tobacco status: never smoked Alcohol intake: never Physical Exam Const: COMMON NORMALS: patient oriented x3 and alert GENERAL APPEARANCE: cooperative and well developed HENMT: COMMON NORMALS: normocephalic and atraumatic HEAD & SCALP: normocephalic and atraumatic THROAT: posterior oropharynx normal Eye: COMMON NORMALS: conjunctivae normal CONJUNCTIVA: Yes conjunctivae normal SCLERA: sclerae normal Neck/C-Spine: COMMON NORMALS: supple GENERAL: Yes trachea midline Resp: COMMON NORMALS: clear to auscultation bilaterally EFFORT & INSPECTION: Yes able to speak in complete sentences AUSCULTATION: clear to auscultation bilaterally Cardio: COMMON NORMALS: regular rate and regular rhythm RATE: regular rate RHYTHM: regular rhythm GI: COMMON NORMALS: Soft to palpation PALPATION: Yes Soft to palpation and No Tenderness to palpation present (GI) Extremity: GENERAL: Yes normal exam except as noted and No edema Neuro: COMMON NORMALS: patient oriented x3, CN's II-XII intact bilaterally, moves all extremities, no focal motor deficits and no sensory deficits noted SENSORIUM/ORIENTATION: Yes alert and No Orientation impaired Psych: COMMON NORMALS: mental status grossly normal and Normal thought process present THOUGHT PROCESS: Normal thought process present Course Vital Signs: Vital signs: Vital Signs Temperature 97.8 F 11/21/22 11:38 Pulse Rate 78 11/21/22 11:38 Respiratory Rate 18 11/21/22 11:38 Blood Pressure 116/55 11/21/22 11:38 Pulse Oximetry 96 11/21/22 11:38 Oxygen Delivery Me thod 11/20/22 19:49 MDM - Weakness Medical Decision Making 76-year-old lady presenting with palpitations and generalized malaise that resolved while in the waiting room. Exam as above. EKG notable for sinus rhythm with normal axis, normal intervals, no STEMI. Labs notable for no leukocytosis, normal hemoglobin and platelet count similar to prior, nausea metabolic derangements. Mid range 2-hour delta troponin concerning for early myocardial ischemia given onset of symptoms and timing. The patient requires repeat and further evaluation. No UTI. Viral panel n egative. Chest x-ray with no lobar consolidation or pneumothorax, appears improved from prior. Patient treated in the emergency room with IV fluids. Most likely cause of patient symptoms is arrhythmia with evidence of myocardial stress and presyncope. The results of ED evaluation were discussed with the patient including plan for admission due to requirement for level of care not available if discharged to prevent significant worsening/deterioration. Patient agreeable with plan. Discussed with hospitalist service who was agreeable to admit patient. Medical Records I reviewed the patient's medical records. Lab Data I reviewed the patient's lab results. 11/20/22 03:16 11/20/22 03:16 Radiology Impressions Chest X-Ray 11/19/22 10:43 IMPRESSION: 1. No acute cardiopulmonary finding. 2. Mild pulmonary hyperinflation. Head CT 11/19/22 15:34 IMPRESSION: 1. No acute intracranial abnormality demonstrated. 2. There is no interval change in the intracranial structures compared the prior CT head examination dated 01/02/2020. Laboratory Results WBC 6.4 10^3/uL (4.0-10.0) 11/19/22 11:30 RBC 4.78 10^6/uL (4.1-5.3) 11/19/22 11:30 Hgb 13.7 g/dL (11.5-15.3) 11/19/22 11:30 Hct 42.2 % (37.0-47.0) 11/19/22 11:30 MCV 88.3 fl (81-99) 11/19/22 11:30 MCH 28.7 pg (28.0-34.0) 11/19/22 11: MCHC 32.5 g/dL (30.0-36.0) 11/19/22 11: RDW 13.2 % (12.1-15.1) 11/19/22 11:30 Plt Count 196 10^3/cmm (130-400) 11/19/22 11:30 MPV 10.7 fL (7.4-10.4) H 11/19/22 11:30 Neut % (Auto) 61.6 % 11/19/22 11:30 Lymph % (Auto) 29.2 % 11/19/22 11:30 [place] % (Auto) 5.5 % 11/19/22 11:30 Eos % (Auto) 1.9 % 11/19/22 11:30 Baso % (Auto) 1.6 % 11/19/22 11:30 Neut # (Auto) 3.94 10^3/uL (1.8-7.7) 11/19/22 11:30 Lymph # (Auto) 1.9 10^3/uL (0.8-4.8) 11/19/22 11:30 [place] # (Auto) 0.4 10^3/uL (0.2-0.9) 11/19/22 11:30 Eos # (Auto) 0.1 10^3/uL (0.0-0.8) 11/19/22 11:30 Baso # (Auto) 0.1 10^3/uL (0.0-0.1) 11/19/22 11:30 Nucleated RBC % (auto) 0 % 11/19/22 11:30 Nucleated RBCs # 0.0 /100WBC 11/19/22 11:30 D-Dimer 0.58 ug/mIFEU (0-0.59) 11/19/22 11:30 Sodium 139 mmol/L (136-145) 11/19/22 11:30 Potassium 3.9 mmol/L (3.5-5.1) 11/19/22 11:30 Chloride 104 mmol/L (98-107) 11/19/22 11:30 Carbon Dioxide 25 mmol/L (22-29) 11/19/22 11:30 Anion Gap 13.9 (5-19) 11/19/22 11:30 BUN 16 mg/dL (8-23) 11/19/22 11:30 Creatinine 0.7 mg/dL (0.5-0.9) 11/19/22 11:30 GFR Calculation Not Reportable 11/19/22 11:30 Glucose 86 mg/dL (65-115) 11/19/22 11:30 Calculated Osmolality 288 mOsm/kg (285-295) 11/19/22 11:30 Calcium 9.5 mg/dL (8.5-10.5) 11/19/22 11:30 Magnesium 2.1 mg/dL (1.7-2.3) 11/19/22 11:30 Iron 103 ug/dL (37-145) 11/19/22 11:30 TIBC 313 mcg/dl 11/19/22 11:30 % Saturation 32.9 % (20-50) 11/19/22 11:30 Unsat Iron Binding 210 ug/dL (112-347) 11/19/22 11:30 Total Bilirubin 0.4 mg/dL (0.15-1.2) 11/19/22 11:30 AST 20 U/L (0-32) 11/19/22 11:30 ALT 15 U/L (0-33) 11/19/22 11:30 Alkaline Phosphatase 91 U/L (35-105) 11/19/22 11:30 Troponin T Baseline 7 ng/L (0-10) 11/19/22 11:30 Troponin T 120 Minute 15.76 ng/L (0-10) H 11/19/22 13:27 Delta Troponin T 8.76 ABS# (0-10) 11/19/22 13:27 Total Protein 7.1 g/dL (6.6-8.7) 11/19/22 11:30 Albumin 4.2 g/dL (3.5-5.2) 11/19/22 11:30 Globulin 2.9 g/dL (1.3-4.6) 11/19/22 11:30 Vitamin B12 701 pg/mL (232-1245) 11/19/22 11:30 Folate 10.3 ng/mL (4.8-37.3) 11/19/22 10:43 TSH 1.72 uIU/mL (0.27-4.20) 11/19/22 11:30 Urine Color Yellow (Yellow) 11/19/22 11:27 Urine Appearance Clear (CLEAR) 11/19/22 11:27 Urine pH 7 (5-7) 11/19/22 11:27 Ur Specific [place] 1.010 (1.005-1.030) 11/19/22 11:27 Urine Protein Neg (Negative) 11/19/22 11:27 Urine Glucose (UA) Norm (Normal) 11/19/22 11:27 Urine Ketones Negative (Negative) 11/19/22 11:27 Urine Blood Neg (Negative) 11/19/22 11:27 Urine Nitrate Negative (Negative) 11/19/22 11:27 Urine Bilirubin Neg (Negative) 11/19/22 11:27 Urine Urobilinogen Neg mg/dL (Negative) 11/19/22 11:27 Ur Leukocyte Esterase Negative (Negative) 11/19/22 11:27 Coronavirus 229E (PCR) Not detected (NOT DETECT) 11/19/22 11:52 SARS-CoV-2 (PCR) Not detected (NOT DETECT) 11/19/22 11:52 Discharge Plan Discharge Patient Disposition: Placed in Observation Admit Provider: Gary Torre Clinical Impression: Heart palpitations, Pre-syncope, Elevated troponin Discharge Diet: Regular and Cardiac Discharge Activity: Resume usual activity and Increase activity as tolerated Coding Level of Care Code ED Fabric Awning Repairer for Chg Fwd Exam Comprehensive
[2022-11-19 11:37] LABS: Basophils # 0.1 10^3/uL (0.0-0.1); Basophils % 1.6 %; Eosinophils # 0.1 10^3/uL (0.0-0.8); Eosinophils % 1.9 %; Hematocrit 42.2 % (37.0-47.0); Hemoglobin 13.7 g/dL (11.5-15.3); Lymphocytes # 1.9 10^3/uL (0.8-4.8); Lymphocytes % 29.2 %; Mean Corpuscular HGB Conc 32.5 g/dL (30.0-36.0); Mean Corpuscular Hemoglobin 28.7 pg (28.0-34.0); Mean Corpuscular Volume 88.3 fl (81-99); Mean Platelet Volume 10.7 fL (7.4-10.4); Monocytes # 0.4 10^3/uL (0.2-0.9); Monocytes % 5.5 %; Neutrophils # 3.94 10^3/uL (1.8-7.7); Neutrophils % 61.6 %; Nucleated Red Blood Cells % 0 %; Platelet Count 196 10^3/cmm (130-400); Red Blood Count 4.78 10^6/uL (4.1-5.3); Red Cell Distribution Width 13.2 % (12.1-15.1); White Blood Count 6.4 10^3/uL (4.0-10.0)
[2022-11-19 11:59] LABS: Add Urine Microscopic? NO; Charge for UA Resulting for Rev
[2022-11-19 12:02] LABS: Troponin(5th) Baseline 7 ng/L (0-10)
[2022-11-19 12:05] LABS: Bilirubin Urine Neg (Negative); Blood Urine Neg (Negative); Glucose Urine UA Norm (Normal); Ketones Urine Negative (Negative); Leukocyte Esterase Urine Negative (Negative); Nitrate Urine Negative (Negative); Protein Urine Neg (Negative); Urine Appearance Clear (CLEAR); Urine Color Yellow (Yellow); Urobilinogen Urine Neg (Negative); pH Urine 7 (5-7)
[2022-11-19 12:12] LABS: Alanine Aminotransferase 15 U/L (0-33); Albumin Level 4.2 g/dL (3.5-5.2); Alkaline Phosphatase 91 U/L (35-105); Anion Gap 13.9 (5-19); Aspartate Amino Transferase 20 U/L (0-32); Blood Urea Nitrogen 16 mg/dL (8-23); Calcium 9.5 mg/dL (8.5-10.5); Carbon Dioxide 25 mmol/L (22-29); Chloride 104 mmol/L (98-107); Globulin 2.9 g/dL (1.3-4.6); Glucose 86 mg/dL (65-115); Magnesium 2.1 mg/dL (1.7-2.3); Osmolality Calculated 288 mOsm/kg (285-295); Potassium 3.9 mmol/L (3.5-5.1); Sodium 139 mmol/L (136-145); Thyroid Stimulating Hormone 1.72 uIU/mL (0.27-4.20); Total Bilirubin 0.4 mg/dL (0.15-1.2); Total Protein 7.1 g/dL (6.6-8.7)
--- NOTE | 2022-11-19 12:56 | ECG_ITS ---
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 Measurements Intervals [place] Rate: 59 P: 49 PA: 178 QRS: 35 QRSD: 112 T: 64 QT: 419 QTc: 416 Interpretive Statements SINUS BRADYCARDIA INCOMPLETE RIGHT BUNDLE BRANCH BLOCK [90+ ms QRS DURATION, TERMINAL R IN V1/V2, 40+ ms S IN I/aVL/V4/V5/V6] POSSIBLE ANTERIOR MYOCARDIAL INFARCTION , OF INDETERMINATE AGE [30 ms Q WAVE IN V3/V4, OR R < 0.2 mV IN V4] Compared to ECG 11/19/2022 10:55:29 Sinus rhythm no longer present Myocardial infarct finding still present Electronically Signed On 11-19-2022 21:46:32 [employer] ADMIN by Iraj Tamez M.D. [id number]
[2022-11-19] MEDS: sodium chloride 0.9% 1,000 ML 999 ML IV (12:59)
--- NOTE | 2022-11-19 13:21 | PC.NURSE ---
PT PLACED ON CONTINUOUS NIBP ,SPO2, AND CM
[2022-11-19 13:45] LABS: Adenovirus Not Detected (NOT DETECT); Chlamydia Pneumoniae Not Detected (NOT DETECT); Coronavirus 229E,HKU1,NL63,OC4 Not Detected (NOT DETECT); Human Metapneumovirus Not Detected (NOT DETECT); Human Rhinovirus/Enterovirus Not Detected (NOT DETECT); Influenza A Not Detected (NOT DETECT); Influenza A H1 Not Detected (NOT DETECT); Influenza A H1-2009 Not Detected (NOT DETECT); Influenza A H3 Not Detected (NOT DETECT); Influenza B Not Detected (NOT DETECT); Mycoplasma Pneumoniae Not Detected (NOT DETECT); Parainfluenza Virus Type 1 Not Detected (NOT DETECT); Parainfluenza Virus Type 2 Not Detected (NOT DETECT); Parainfluenza Virus Type 3 Not Detected (NOT DETECT); Parainfluenza Virus Type 4 Not Detected (NOT DETECT); Respiratory Syncytial Virus A Not Detected (NOT DETECT); Respiratory Syncytial Virus B Not Detected (NOT DETECT); SARS-COV-2 Not Detected (NOT DETECT)
[2022-11-19 14:05] LABS: Troponin 5 2HR 15.76 ng/L (0-10)
[2022-11-19 14:06] LABS: Troponin 5 2HR Delta 8.76 ABS# (0-10)
[2022-11-19 15:20] LABS: D Dimer 0.58 ug/mIFEU (0-0.59)
--- NOTE | 2022-11-19 15:26 | PM.HP ---
Providers/Chief Complaint Admitting Physician: Gary Torre MD Primary Care Provider: Fernanda Peralta Chief Complaint: High HR, SOB History of Present Illness Kalli Castaneda is a 76 year old female with past medical history of hypertension, palpitations who presented to the ER today after having palpitations which lasted for an hour which was unusual for her associated with difficulty in breathing, and dizziness. Patient states usually she would have palpitations once or twice a month which would not last for more than couple of minutes and would not be associated with dizziness or difficulty in breathing. She denies any changes in her medications recently, more use of caffeine than usual, any new herbal products. Took her medications today. States she does check her blood pressure at home but is not really sure if the blood pressure machine at home is working correctly. States she did have a Holter monitor placed many years ago and is not really sure of the results. Review of Systems General: Reports: 10 or more systems reviewed and unremarkable except in HPI and below Const: Denies: fever(s), chills, body aches, change in appetite, change in weight, malaise, night sweats, diaphoresis, change in sleep pattern, daytime sleepiness or snoring Eyes: Denies: change in vision, blurry vision, photophobia, eye discomfort or eye discharge ENMT: Denies: throat pain, enlarged tonsils, hoarseness, mouth pain, oral sores, dry mouth, tinnitus, nasal congestion or post nasal drip Card: Denies: chest pain, palpitations, irregular heart rhythm, edema, swelling of feet/ankles, lightheadedness, syncope, pre-syncope, dyspnea on exertion, orthopnea, leg pain with exertion or acrocyanosis Resp: Denies: dyspnea, productive cough, non-productive cough, wheezing, stridor, pain on inspiration, change in phlegm color, hemoptysis or chest congestion GI: Denies: abdominal pain, nausea, vomiting, hematemesis, coffee ground emesis, dysphagia, heartburn, diarrhea, constipation, bloating, GI cramping, change in bowel habits, pain on defecation, hematochezia or melena : Denies: flank pain, dysuria, urinary frequency, urinary urgency, urinary hesitancy, nocturia or hematuria Musc: Denies: neck pain, back pain, extremity pain, joint pain, joint swelling, joint redness, joint stiffness or limited range of motion Neuro: Denies: headache(s), numbness in extremities, weakness in extremities, sensory changes, lack of coordination, difficulty walking, frequent falls, dizziness, vertigo, confusion, Slurred speech present, difficulty communicating thoughts or seizure-like activity Psych: Denies: anxiety, depression, mood swings, panic attacks, hopelessness or irritability Endo: Denies: polyuria, polydipsia, tired all the time, cold intolerance, excessive sweating, flushing or heat intolerance [place]/Lymph: Denies: easy bruising or easy bleeding All/Imm: Denies: tongue swelling, facial swelling or acute wheezing Medications/Allergies Home Medications Medication Instructions Recorded Confirmed Last Taken Type Hinged Knee Brace #1 ea 01/04/20 11/19/22 Unknown Rx multivitamin 1 tab PO DAILY 04/10/21 11/19/22 11/19/22 History Custom Molded Orthotics #1 ea 08/05/21 11/19/22 Unknown Rx cholecalciferol (vitamin D3) 10 10 mcg PO DAILY 04/11/22 11/19/22 11/19/22 History mcg (400 unit) capsule (Vitamin D3) hydrocodone 5 mg-acetaminophen 325 1 tab PO TID PRN Pain 04/11/22 11/19/22 04/10/22 History mg tablet losartan 100 mg tablet 100 mg PO QAM 04/11/22 11/19/22 11/19/22 History meloxicam 15 mg tablet 15 mg PO QAM 04/11/22 11/19/22 11/19/22 History potassium gluconate 595 mg (99 mg) 595 mg PO DAILY 04/11/22 11/19/22 11/19/22 History tablet ibuprofen 600 mg tablet 600 mg PO Q8H PRN pain #30 tabs 04/16/22 11/19/22 Unknown Rx Lactobacillus acidophilus 1.5 mg 2,000 mmu cells PO DAILY 05/05/22 11/19/22 11/19/22 History (250 million cell) capsule (Probiotic Acidophilus) Allergies Allergy/AdvReac Type Severity Reaction Status Date / Time No Known Allergies Allergy Verified 05/05/22 21:05 PFSH Acute PFSH: Medical History (Updated 11/19/22 @ 15:30 by Gary Torre MD) Accelerated essential hypertension Heart palpitations History of nonmelanoma skin cancer MCL sprain of right knee Surgical History H/O: hysterectomy History of left knee replacement Family History Other Hypertension Stroke Social History Smoking and tobacco status: never smoked Alcohol intake: never Vitals/I&O/Wt Last Vital Signs Temp 98.1 F 11/19/22 10:34 Pulse 65 11/19/22 14:23 Resp 18 11/19/22 14:23 BP 185/84 11/19/22 14:23 Pulse Ox 97 11/19/22 14:23 O2 Del Method 11/19/22 12:00 Weight last 48 hrs Weight 79.379 kg Physical Exam Narrative: General: No acute distress, AO x3 HEENT: PERRLA, pupils bilaterally equal and reactive Chest: Normal vesicular breath sounds, no added sounds, equal good air entry bilaterally CVS: S1-S2 regular, no murmurs, no tachycardia, no gallops, no rubs Abdomen: Soft, nontender, no organomegaly, bowel sounds present Neuro: No focal deficits, no facial deformity, AO x3, power 5/5 in all limbs Data 11/19/22 11:30 11/19/22 11:30 A&P Assessment and plan (1) Heart palpitations: Check TSH, urine drug screen, echocardiogram. monitor technician. We will plan to discharge patient with an event monitor. Patient denies any chest pain. Monitor troponins. Check A1c, lipid panel. Echocardiogram as above. (2) Accelerated essential hypertension: Goal blood pressure less than 140/90 mmHg. Blood pressure elevated. Continue with home dose of losartan for now. Patient mildly bradycardic. Depending on the blood pressure we will try to add amlodipine or carvedilol. We will continue to monitor. (3) Dizziness: Most likely secondary to palpitation. Check orthostatic. Check CT head, carotid Dopplers (4) Sinus bradycardia: Plan Cardiac diet Famotidine for PUD prophylaxis Heparin 5000 every 12 for DVT prophylaxis Admitted under observation to CSU. Attestations Medical Necessity Statement*: Admission for less than 2 midnights under observation for palpitations leading to dizziness and shortness of breath. Time Spent in Patient Care: Greater than 35 minutes Coding Level of Care Code Acute Code for Chg Fwd Diagnoses Heart palpitations R00.2 Accelerated essential hypertension I10 Dizziness R42 Sinus bradycardia R00.1
--- NOTE | 2022-11-19 15:34 | CTR_ITS ---
PROCEDURE INFORMATION: Exam: CT Head Without Contrast Exam date and time: 11/19/2022 7:32 PM Age: 76 years old Clinical indication: Other: Weakness; Additional info: Pre syncope TECHNIQUE: Imaging protocol: Computed tomography of the head without contrast. Radiation optimization: All CT scans at this facility use at least one of these dose optimization techniques: automated exposure control; mA and/or kV adjustment per patient size (includes targeted exams where dose is matched to clinical indication); or iterative reconstruction. Other protocol: This patient has received [address] and 0 known cardiac nuclear medicine studies in the 12 months prior to the current study. COMPARISON: CT head wo con* [id number] 01/02/2020 11:05 PM RADIATION DOSE METRICS: Total DLP (mGy-cm): 1135.98 FINDINGS: Brain: Age related parenchymal volume loss noted. There is decreased attenuation of the periventricular white matter, consistent with chronic microangiopathic white matter disease. No parenchymal edema identified. No intracranial hemorrhage noted. Cerebral ventricles: No ventriculomegaly. Paranasal sinuses: Visualized sinuses are unremarkable. No air fluid levels. Mastoid air cells: Unremarkable as visualized. No mastoid effusion. Bones/joints: Unremarkable. No acute fracture. Soft tissues: Unremarkable. CT/CT head wo con* [id number] IMPRESSION: 1. No acute intracranial abnormality demonstrated. 2. There is no interval change in the intracranial structures compared the prior CT head examination dated 01/02/2020.
--- NOTE | 2022-11-19 15:34 | USCV_ITS ---
Leonel Kalli Age: 76 Gender: F : 1945 Exam Date: 11/19/2022 16:11 Ordering Phys: Gary Torre MD Technologist: Jorge Luis Torres [place] [facility] [place]: [place] Risk Factors: Previous Vascular Surgery: Right Brachial BP: / Left Brachial BP: / Right Left Velocity (cm/s) Spectral Plaque Velocity (cm/s) Spectral Plaque Syst/Diast Broadening Syst/Diast Broadening 91.90/ 15.00 Prox CCA 68.20 / 10.10 46.90/ 11.90 Mid CCA 62.60 / 15.70 35.90/ 11.40 Distal CCA 50.30 / 15.10 61.50/ 17.20 Prox ICA 74.90 / 22.90 82.60/ 23.80 Mid ICA 130.10/ 40.80 106.90/31.90 Distal ICA 110.50/ 31.70 47.70 ECA 64.30 1.76 ICA/CCA 2.08 Antegrade Vertebral Antegrade 34.50/ 9.10 cm/s 85.50/ 21.10 cm/s Tri Subclavian Tri 53.70 70.40 CONCLUSIONS Right ICA stenosis <50%. Left ICA stenosis 50-69% at the lower end of the range Normal antegrade Doppler flow noted in the right vertebral artery. Normal antegrade Doppler flow noted in the left vertebral artery. Shankar Ahn MD (Electronically Signed) Final Date: 20 November 2022 10:53 S
--- NOTE | 2022-11-19 15:35 | USCV_ITS ---
Leonel Kalli Age: 76 Gender: F : 1945 Exam Date: 11/19/2022 16:35 Ordering Phys: Gary Torre MD Technologist: Jorge Luis Torres Exam Location: [facility] [place] Indication: Palpitation, Sob BP: 185 / 84 HR: 67 Rhythm: Sinus Technical Quality: Adequate MEASUREMENTS (Male / Female) Normal Values 2D ECHO LV Diastolic Diameter PLAX 4.7 cm 4.2 - 5.9 / 3.9 - 5.3 cm LV Systolic Diameter PLAX 2.9 cm IVS Diastolic Thickness 0.7 cm 0.6 - 1.0 / 0.6 - 0.9 cm IVS Systolic Thickness 0.9 cm LVPW Diastolic Thickness 0.8 cm 0.6 - 1.0 / 0.6 - 0.9 cm LVPW Systolic Thickness 1.2 cm LVOT Diameter 2.0 cm LV Ejection Fraction 2D Teich 67.4 % LV Ejection Fraction MOD 2C 62.7 % LV Ejection Fraction 2C AL 63.1 % LA Diameter 3.3 cm LA Width 3.9 cm LA Height 4.1 cm RA Width 3.2 cm RA Height 4.3 cm Aorta at Sinotubular Diameter 2.5 cm IVC Diameter 1.9 cm M-MODE Aortic Annulus Diameter 2.9 cm LA Ao Ratio MM 1.2 MV E Point Septal Separation 0.3 cm DOPPLER AV Peak Velocity 133.3 cm/s LVOT Peak Velocity 124.0 cm/s AV Area Cont Eq vti 2.9 cm squared AV Area Cont Eq pk 3.0 cm squared MV Peak Velocity 123.0 cm/s MV Area PHT 4.8 cm squared Mitral E to A Ratio 1.0 MV E' Velocity 52.5 cm/s Mitral E to MV E' Ratio 9.8 Mitral E to LV E' Lateral Ratio 8.8 Mitral E to LV E' Septal Ratio 11.3 TR Peak Velocity 301.2 cm/s TR Peak Gradient 36.3 mmHg TR Mean Velocity 226.5 cm/s TR Mean Gradient 22.6 mmHg TR Velocity Time Integral 95.2 cm Right Atrial Pressure 3.0 mmHg Pulmonary Artery Systolic Pressu 39.3 mmHg PV Peak Velocity 115.0 cm/s RV Acceleration Time 0.2 s RV Ejection Time 0.3 s RV AcT/ET 0.5 FINDINGS Left Ventricle Normal left ventricular size, systolic function and wall thickness, with no regional wall motion abnormalities. Left ventricular ejection fraction is estimated at 70 %. Normal diastolic function. Right Ventricle Normal right ventricular size and systolic function. Right ventricular systolic pressure 39.3 mmHg. Right Atrium Normal right atrial size. Left Atrium Normal left atrial size. Mitral Valve Structurally normal mitral valve. No mitral valve stenosis. No mitral valve regurgitation. Aortic Valve Structurally normal trileaflet aortic valve. No aortic valve stenosis. No aortic valve regurgitation. Tricuspid Valve Structurally normal tricuspid valve. No tricuspid valve stenosis. Trace tricuspid valve regurgitation. Pulmonic Valve Structurally normal pulmonic valve. No pulmonary valve stenosis. No pulmonary valve regurgitation. Pericardium No pericardial effusion. Aorta Normal size aortic root and proximal ascending aorta. IVC Normal IVC dimension with >50% respiratory change of the inferior vena cava. CONCLUSIONS 1. Normal left ventricular size, systolic function and wall thickness, with no regional wall motion abnormalities. Left ventricular ejection fraction is estimated at 70 %. Normal diastolic function. 2. No significant valvular abnormality. 3. Pulmonary artery pressure estimated at 39 mm Hg. 4. No prior similar studies to compare. Peggy Goss MD (Electronically Signed) Final Date: 19 November 2022 18:45 S
[2022-11-19 15:43] LABS: Iron 103 ug/dL (37-145); Percent Saturation 32.9 % (20-50); Total Iron Binding Capacity 313 mcg/dl; Unsaturated Iron Binding 210 ug/dL (112-347)
[2022-11-19 16:00] LABS: Vitamin B12 701 pg/mL (232-1245)
[2022-11-19 16:19] LABS: Folate Level 10.3 ng/mL (4.8-37.3)
--- NOTE | 2022-11-19 16:56 | ECG_ITS ---
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 Measurements Intervals [place] Rate: 56 P: 3 ID: [id number] QRS: 11 QRSD: 102 T: 38 QT: 424 QTc: 410 Interpretive Statements SINUS BRADYCARDIA Compared to ECG 11/19/2022 13:05:07 Incomplete right bundle-branch block no longer present Myocardial infarct finding no longer present Electronically Signed On 11-19-2022 21:46:21 CHIEF RECORDIST by Iraj Tamez M.D. [id number]
[2022-11-19 17:59] LABS: Troponin 5 6HR 10.12 ng/L (0-10)
[2022-11-19 18:02] LABS: Troponin 5 6HR Delta 3.12 ng/L (0-12)
[2022-11-19] MEDS: amlodipine 10 mg Tablet PO (18:07)
[2022-11-19] MEDS: famotidine 20 mg Tablet PO (18:08)
[2022-11-19] MEDS: hyDRALAzine 10 mg Tablet PO ×2 (18:08→22:04)
[2022-11-19 18:51] LABS: Amphetamines Screen Urine Negative (Negative); Barbiturates Screen Urine Negative (Negative); Benzodiazepines Screen Urine Negative (Negative); Cocaine Screen Urine Negative (Negative); Opiate Screen Urine Positive (Negative); PCP Screen Urine Negative (Negative); THC Screen Urine Negative (Negative)
[2022-11-20] VITALS (14 sets, daily range): BP systolic 122–210; BP diastolic 60–91; PULSE 64–92; RESP 16–21; TEMP 36.4–36.8; O2SAT 95–99
[2022-11-20] MEDS: HYDROcodone-acetaminophen 5-325 mg Tablet 1 TAB PO ×3 (03:52→20:47)
[2022-11-20 03:55] LABS: Basophils # 0.1 10^3/uL (0.0-0.1); Basophils % 1.3 %; Eosinophils # 0.2 10^3/uL (0.0-0.8); Eosinophils % 2.8 %; Hematocrit 39.4 % (37.0-47.0); Hemoglobin 12.6 g/dL (11.5-15.3); Lymphocytes # 1.6 10^3/uL (0.8-4.8); Lymphocytes % 30.3 %; Mean Corpuscular Hemoglobin 28.4 pg (28.0-34.0); Mean Corpuscular Volume 88.9 fl (81-99); Mean Platelet Volume 10.8 fL (7.4-10.4); Monocytes # 0.4 10^3/uL (0.2-0.9); Monocytes % 7.8 %; Neutrophils % 57.6 %; Nucleated Red Blood Cells % 0 %; Platelet Count 175 10^3/cmm (130-400); Red Blood Count 4.43 10^6/uL (4.1-5.3); Red Cell Distribution Width 13.2 % (12.1-15.1); White Blood Count 5.4 10^3/uL (4.0-10.0)
[2022-11-20 04:12] LABS: Alanine Aminotransferase 13 U/L (0-33); Albumin Level 3.7 g/dL (3.5-5.2); Alkaline Phosphatase 75 U/L (35-105); Anion Gap 11.8 (5-19); Aspartate Amino Transferase 17 U/L (0-32); Blood Urea Nitrogen 14 mg/dL (8-23); Calcium 8.8 mg/dL (8.5-10.5); Carbon Dioxide 25 mmol/L (22-29); Chloride 109 mmol/L (98-107); Chol HDL Ratio 2.98 mg/dL (0.0-4.40); Cholesterol 176 mg/dL (0-200); Globulin 2.5 g/dL (1.3-4.6); Glucose 85 mg/dL (65-115); HDL Cholesterol 59 mg/dL (60-100); LDL Cholesterol Calculated 106 mg/dL (50-129); Magnesium 2.1 mg/dL (1.7-2.3); Osmolality Calculated 294 mOsm/kg (285-295); Phosphorus 3.3 mg/dL (2.5-4.5); Potassium 3.8 mmol/L (3.5-5.1); Sodium 142 mmol/L (136-145); Total Bilirubin 0.3 mg/dL (0.15-1.2); Total Protein 6.2 g/dL (6.6-8.7); Triglycerides 55 mg/dL (0-150); VLDL Cholestrol Calculation 11 mg/dL (0-30)
[2022-11-20 04:16] LABS: Estmated Average Glucose 94; Hemoglobin A1C 4.9 % (4.0-6.0)
[2022-11-20] MEDS: losartan 50 mg Tablet 100 MG PO (05:03)
[2022-11-20] MEDS: amlodipine 10 mg Tablet PO (08:17)
[2022-11-20] MEDS: famotidine 20 mg Tablet PO ×2 (08:17→20:47)
[2022-11-20] MEDS: hyDRALAzine 10 mg Tablet PO (08:17)
[2022-11-20] MEDS: multivitamin therapeutic Tablet 1 TAB PO (08:17)
[2022-11-20] MEDS: hyDRALAzine 20 mg/mL INJ 1 mL 10 MG IVP (11:36)
--- NOTE | 2022-11-20 11:38 | PM.PN ---
Subjective Subjective: Patient no acute events overnight. On examination patient lying comfortably in bed. States feeling a lot better. Denies any nausea vomiting, headache. On review of her chart patient blood pressures have remained on the higher side even after adjusting medications going as high as 190/110 mmHg. She denies any headache or dizziness now. Telemetry has remained stable. Vitals/I&O/Wt Last Vital Signs Temp 97.8 F 11/20/22 07:15 Pulse 64 11/20/22 07:15 Resp 21 H 11/20/22 07:15 BP 174/74 11/20/22 07:15 Pulse Ox 99 11/20/22 07:15 O2 Del Method 11/20/22 07:15 11/19/22 11/20/22 11/20/22 22:59 06:59 14:59 Intake Total 450 / 1450 350 / 1800 480 / 480 Balance 450 / 1450 350 / 1800 480 / 480 Weight last 48 hrs Weight 79.379 kg Physical Exam Narrative: General: No acute distress, AO x3 HEENT: PERRLA, pupils bilaterally equal and reactive Chest: Normal vesicular breath sounds, no added sounds, equal good air entry bilaterally CVS: S1-S2 regular, no murmurs, no tachycardia, no gallops, no rubs Abdomen: Soft, nontender, no organomegaly, bowel sounds present Neuro: No focal deficits, no facial deformity, AO x3, power 5/5 in all limbs Data 11/20/22 03:16 11/20/22 03:16 A&P Assessment and plan (1) Heart palpitations: TSH, urine drug, echocardiogram results appreciated. Echocardiogram result shows an EF of 70% without diastolic dysfunction. Telemetry stable. Continue to monitor. Troponin cycled and negative. No regional wall motion abnormality. Appreciate A1c, lipid panel results. No further ischemic work-up for now. (2) Accelerated essential hypertension: Goal blood pressure less than 140/90 mmHg. Blood pressure elevated. Continue with home dose of losartan dose of hydralazine to 50 mg 3 times daily. Add amlodipine 10 mg daily. Will uptitrate medications as per blood pressure goals. (3) Dizziness: Most likely secondary to palpitation. Orthostatics negative. Appreciate CT head and carotid Doppler results. (4) Sinus bradycardia: Plan Cardiac diet Famotidine for PUD prophylaxis Heparin 5000 every 12 for DVT prophylaxis Admitted under observation to CSU. Attestations Medical Necessity Statement*: Requires further observation for adjustment of antihypertensives in setting of accelerated hypertension as she is at a high risk of stroke, ACS or intracranial hemorrhage Time Spent in Patient Care: Greater than 35 minutes Coding Level of Care Code Acute Code for Chg Fwd Diagnoses Heart palpitations R00.2 Accelerated essential hypertension I10 Dizziness R42 Sinus bradycardia R00.1
[2022-11-20] MEDS: citalopram 20 mg Tablet PO (14:25)
[2022-11-20] MEDS: hyDRALAzine 50 mg Tablet PO ×2 (14:26→20:47)
[2022-11-20] MEDS: ibuprofen 600 mg Tablet PO (19:45)
[2022-11-20] MEDS: docusate sodium 100 mg Capsule PO (20:47)
--- NOTE | 2022-11-21 03:13 | PC.NURSE ---
pt refused heparin shot stating having history of bleeding disorder and stated I walk a lot in my room so I don't need it
[2022-11-21 04:00] VITALS: BP 141/88; PULSE 66; RESP 18; TEMP 36.8; O2SAT 97
[2022-11-21 05:45] VITALS: BP 149/87
[2022-11-21] MEDS: losartan 50 mg Tablet 100 MG PO (05:45)
[2022-11-21 06:00] VITALS: PULSE 71
[2022-11-21 07:07] VITALS: BP 149/79; PULSE 87; RESP 20; O2SAT 97
[2022-11-21] MEDS: docusate sodium 100 mg Capsule PO (08:45)
[2022-11-21] MEDS: multivitamin therapeutic Tablet 1 TAB PO (08:45)
[2022-11-21] MEDS: famotidine 20 mg Tablet PO (08:45)
[2022-11-21] MEDS: amlodipine 10 mg Tablet PO (08:45)
[2022-11-21] MEDS: hyDRALAzine 50 mg Tablet PO (08:46)
--- NOTE | 2022-11-21 09:30 | P.DS_ITS ---
Discharge Providers Date of Admission: 11/19/22 15:16 Date of Discharge: November 21, 2022 Attending Provider at Admission: Gary Torre MD Attending Provider at Discharge: Gary Torre MD Primary Care Provider: Fernanda Peralta Diagnoses at Discharge Discharge Diagnosis (1) Heart palpitations: Status: Acute (2) Accelerated essential hypertension: Status: Acute (3) Dizziness: Status: Acute (4) Sinus bradycardia: Status: Acute Reason for Visit Reason for Visit: High HR, SOB Hospital Course Hospital Course Kalli Castaneda is a 76 year old female with past medical history of hypertension, palpitations who presented to the ER today after having palpitations which lasted for an hour which was unusual for her associated with difficulty in breathing, and dizziness.? Patient states usually she would have palpitations once or twice a month which would not last for more than couple of minutes and would not be associated with dizziness or difficulty in breathing.? She denies any changes in her medications recently, more use of caffeine than usual, any new herbal products. Took her medications today.? States she does check her blood pressure at home but is not really sure if the blood pressure machine at home is working correctly.? States she did have a Holter monitor placed many years ago and is not really sure of the results. She was admitted for further evaluation and management. During hospitalization she did not have any further episodes of palpitations. Orthostatics were negative and telemetry remained stable but she was found to have accelerated hypertension for which her antihypertensives were adjusted. She has been discharged in hemodynamically stable condition on adjusted antihypertensives with advised to check her blood pressure twice daily and maintain a blood pressure diary and follow-up with a primary care provider within next 1 week for further adjustment of antihypertensives as needed. She is also advised to have a event monitor placed for further evaluation of palpitations. Physical Exam Narrative: General: No acute distress, AO x3 HEENT: PERRLA, pupils bilaterally equal and reactive Chest: Normal vesicular breath sounds, no added sounds, equal good air entry bilaterally CVS: S1-S2 regular, no murmurs, no tachycardia, no gallops, no rubs Abdomen: Soft, nontender, no organomegaly, bowel sounds present Neuro: No focal deficits, no facial deformity, AO x3, power 5/5 in all limbs Discharge Data Studies Completed and Pending Completed Studies During Hospitalization Category Date Time Status CT head wo con* [id number] Routine Cat Scan 11/19/22 15:34 Completed XR chest 1V portable [id number] Stat Exams 11/19/22 10:43 Completed CV carotid duplex BI* [id number] Routine Ultrasound 11/19/22 15:34 Completed CV. echo complete* [id number] Routine Ultrasound 11/19/22 15:35 Completed Radiology Impressions Chest X-Ray 11/19/22 10:43 IMPRESSION: 1. No acute cardiopulmonary finding. 2. Mild pulmonary hyperinflation. Head CT 11/19/22 15:34 IMPRESSION: 1. No acute intracranial abnormality demonstrated. 2. There is no interval change in the intracranial structures compared the prior CT head examination dated 01/02/2020. Carotid Doppler ?CONCLUSIONS ?Right ICA stenosis <50%. ?Left ICA stenosis 50-69% at the lower end of the range ?Normal antegrade Doppler flow noted in the right vertebral ?artery. ?Normal antegrade Doppler flow noted in the left vertebral ?artery. ?Shankar Ahn MD ?(Electronically Signed) ?Final Date:? ? ? 20 November 2022 ? 10:53 S Echocardiogram CONCLUSIONS ?1. Normal left ventricular size, systolic function and wall ?thickness, with no regional wall motion abnormalities. Left ?ventricular ejection fraction is estimated at 70 %. Normal ?diastolic function. ?2. No significant valvular abnormality. ?3. Pulmonary artery pressure estimated at 39 mm Hg. ?4. No prior similar studies to compare. ?Peggy Goss MD ?(Electronically Signed) ?Final Date:? ? ? 19 November 2022 ? 18:45 Laboratory Results WBC 5.4 10^3/uL (4.0-10.0) 11/20/22 03:16 RBC 4.43 10^6/uL (4.1-5.3) 11/20/22 03:16 Hgb 12.6 g/dL (11.5-15.3) 11/20/22 03:16 Hct 39.4 % (37.0-47.0) 11/20/22 03:16 MCV 88.9 fl (81-99) 11/20/22 03:16 MCH 28.4 pg (28.0-34.0) 11/20/22 03:16 MCHC 32.0 g/dL (30.0-36.0) 11/20/22 03:16 RDW 13.2 % (12.1-15.1) 11/20/22 03:16 Plt Count 175 10^3/cmm (130-400) 11/20/22 03:16 MPV 10.8 fL (7.4-10.4) H 11/20/22 03:16 Neut % (Auto) 57.6 % 11/20/22 03:16 Lymph % (Auto) 30.3 % 11/20/22 03:16 [place] % (Auto) 7.8 % 11/20/22 03:16 Eos % (Auto) 2.8 % 11/20/22 03:16 Baso % (Auto) 1.3 % 11/20/22 03:16 Neut # (Auto) 3.10 10^3/uL (1.8-7.7) 11/20/22 03:16 Lymph # (Auto) 1.6 10^3/uL (0.8-4.8) 11/20/22 03:16 [place] # (Auto) 0.4 10^3/uL (0.2-0.9) 11/20/22 03:16 Eos # (Auto) 0.2 10^3/uL (0.0-0.8) 11/20/22 03:16 Baso # (Auto) 0.1 10^3/uL (0.0-0.1) 11/20/22 03:16 Nucleated RBC % (auto) 0 % 11/20/22 03:16 Nucleated RBCs # 0.0 /100WBC 11/20/22 03:16 D-Dimer 0.58 ug/mIFEU (0-0.59) 11/19/22 11:30 Sodium 142 mmol/L (136-145) 11/20/22 03:16 Potassium 3.8 mmol/L (3.5-5.1) 11/20/22 03:16 Chloride 109 mmol/L (98-107) H 11/20/22 03:16 Carbon Dioxide 25 mmol/L (22-29) 11/20/22 03:16 Anion Gap 11.8 (5-19) 11/20/22 03:16 BUN 14 mg/dL (8-23) 11/20/22 03:16 Creatinine 0.6 mg/dL (0.5-0.9) 11/20/22 03:16 GFR Calculation Not Reportable 11/20/22 03:16 Glucose 85 mg/dL (65-115) 11/20/22 03:16 Estimat Average Glucose 94 11/20/22 03:16 Hemoglobin A1c 4.9 % (4.0-6.0) 11/20/22 03:16 Calculated Osmolality 294 mOsm/kg (285-295) 11/20/22 03:16 Calcium 8.8 mg/dL (8.5-10.5) 11/20/22 03:16 Phosphorus 3.3 mg/dL (2.5-4.5) 11/20/22 03:16 Magnesium 2.1 mg/dL (1.7-2.3) 11/20/22 03:16 Iron 103 ug/dL (37-145) 11/19/22 11:30 TIBC 313 mcg/dl 11/19/22 11:30 % Saturation 32.9 % (20-50) 11/19/22 11:30 Unsat Iron Binding 210 ug/dL (112-347) 11/19/22 11:30 Total Bilirubin 0.3 mg/dL (0.15-1.2) 11/20/22 03:16 AST 17 U/L (0-32) 11/20/22 03:16 ALT 13 U/L (0-33) 11/20/22 03:16 Alkaline Phosphatase 75 U/L (35-105) 11/20/22 03:16 Troponin T Baseline 7 ng/L (0-10) 11/19/22 11:30 Troponin T 120 Minute 15.76 ng/L (0-10) H 11/19/22 13:27 Delta Troponin T 8.76 ABS# (0-10) 11/19/22 13:27 Troponin T Hi Sens 6Hr 10.12 ng/L (0-10) H 11/19/22 17:32 Troponin T Hi Sens 6Hr Delta 3.12 ng/L (0-12) 11/19/22 17:32 Total Protein 6.2 g/dL (6.6-8.7) L 11/20/22 03:16 Albumin 3.7 g/dL (3.5-5.2) 11/20/22 03:16 Globulin 2.5 g/dL (1.3-4.6) 11/20/22 03:16 Triglycerides 55 mg/dL (0-150) 11/20/22 03:16 Cholesterol 176 mg/dL (0-200) 11/20/22 03:16 LDL Cholesterol, Calc 106 mg/dL (50-129) 11/20/22 03:16 Total VLDL Cholesterol 11 mg/dL (0-30) 11/20/22 03:16 HDL Cholesterol 59 mg/dL (60-100) L 11/20/22 03:16 Cholesterol/HDL Ratio 2.98 mg/dL (0.0-4.40) 11/20/22 03:16 Vitamin B12 701 pg/mL (232-1245) 11/19/22 11:30 Folate 10.3 ng/mL (4.8-37.3) 11/19/22 10:43 TSH 1.72 uIU/mL (0.27-4.20) 11/19/22 11:30 Urine Color Yellow (Yellow) 11/19/22 11:27 Urine Appearance Clear (CLEAR) 11/19/22 11:27 Urine pH 7 (5-7) 11/19/22 11:27 Ur Specific [place] 1.010 (1.005-1.030) 11/19/22 11:27 Urine Protein Neg (Negative) 11/19/22 11:27 Urine Glucose (UA) Norm (Normal) 11/19/22 11:27 Urine Ketones Negative (Negative) 11/19/22 11:27 Urine Blood Neg (Negative) 11/19/22 11:27 Urine Nitrate Negative (Negative) 11/19/22 11:27 Urine Bilirubin Neg (Negative) 11/19/22 11:27 Urine Urobilinogen Neg mg/dL (Negative) 11/19/22 11:27 Ur Leukocyte Esterase Negative (Negative) 11/19/22 11:27 Urine Opiates Screen Positive ng/mL (Negative) H 11/19/22 18:22 Ur Barbiturates Screen Negative ng/mL (Negative) 11/19/22 18:22 Ur Phencyclidine Scrn Negative ng/mL (Negative) 11/19/22 18:22 Ur Amphetamines Screen Negative ng/mL (Negative) 11/19/22 18:22 U Benzodiazepines Scrn Negative ng/mL (Negative) 11/19/22 18:22 Urine Cocaine Screen Negative ng/mL (Negative) 11/19/22 18:22 U Marijuana (THC) Screen Negative ng/mL (Negative) 11/19/22 18:22 Coronavirus 229E (PCR) Not detected (NOT DETECT) 11/19/22 11:52 SARS-CoV-2 (PCR) Not detected (NOT DETECT) 11/19/22 11:52 Vitals Last Vital Signs Temp 98.2 F 11/21/22 04:00 Pulse 87 11/21/22 07:07 Resp 20 H 11/21/22 07:07 BP 149/79 11/21/22 07:07 Pulse Ox 97 11/21/22 07:07 O2 Del Method 11/20/22 19:49 Discharge Plan Discharge Patient Disposition: Home Condition: Stable Prescriptions: New amlodipine 10 mg Tablet 10 mg PO DAILY 30 Days Qty: 30 0RF hydralazine 50 mg Tablet 50 mg PO TID 30 Days Qty: 90 0RF Continued (DME) Hinged Knee Brace Qty: 1 0RF Rx Instructions: As directed (DME) Custom Molded Orthotics See Rx Instructions .Route .MEDSUPPLY Qty: 1 0RF Rx Instructions: As directed ibuprofen 600 mg tablet 600 mg PO Q8H PRN (Reason: pain) Qty: 30 0RF multivitamin Tablet 1 tab PO DAILY hydrocodone-acetaminophen 5-325 mg tablet 1 tab PO TID PRN (Reason: Pain) losartan 100 mg tablet 100 mg PO QAM potassium gluconate 595 mg (99 mg) Tablet 595 mg PO DAILY meloxicam 15 mg tablet 15 mg PO QAM cholecalciferol (vitamin D3) [Vitamin D3] 10 mcg (400 unit) Capsule 10 mcg PO DAILY Probiotic Acidophilus 1.5 mg (250 million cell) Capsule 2,000 mmu cells PO DAILY Discharge Orders: Discharge Order (Routine); Ordered 11/21/22 Ordered By: Gary Torre Other Ambulatory Orders: MCT/Event Monitor 21 Days (Routine) Timeframe: 1 Week Facility: [facility] - Location: Radiology Ordered By: Gary Torre Referrals: Fernanda Peralta PA [Primary Care Provider] - 1 week Discharge Diet: Regular and Cardiac Discharge Activity: Resume usual activity and Increase activity as tolerated Patient Instructions: Syncope (DC), Tachycardia (GEN), Shortness of Breath (DC), Opioid Safety Activity Restrictions/Additional Instructions: Check your blood pressure twice daily and maintain a blood pressure diary and follow-up with primary care provider within next 1 week for further adjustment of antihypertensives. Continue taking your losartan as before. You will also be on amlodipine 1 time a day and hydralazine 3 times a day. Discharge Attestations Time Spent in Discharge Care*: greater than 30 min Specific Discharge Activities: educating patient, discussing with pcp/other providers, discussing with senior case manager/social workers/dc planners, documenting/other paperwork and evaluating patient/reviewing data Status at Discharge: Cognitive status at discharge: cognitively intact , Behavioral status at discharge: cooperative , Functional status at discharge: independent ambulation , Overall status at discharge: patient is back to baseline Quality Metrics Clinical Quality Measures [ No reported AMI, CVA or VTE this stay] Coding Level of Care Code Acute Chg FW DC note Diagnoses Heart palpitations R00.2 Accelerated essential hypertension I10 Dizziness R42 Sinus bradycardia R00.1
[2022-11-21] MEDS: HYDROcodone-acetaminophen 5-325 mg Tablet 1 TAB PO (09:34)
[2022-11-21 11:14] VITALS: BP 116/55; PULSE 86; RESP 20; TEMP 36.6
[2022-11-21 11:38] VITALS: BP 116/55; PULSE 78; RESP 18; TEMP 36.6; O2SAT 96
--- NOTE | 2022-11-21 13:11 | PC.NURSE ---
Pt discharged home with son. Belongings sent home with pt. Voices understanding of d/c instructions. IV removed with cathlon intact.
== END 2022-11-21 12:30 | disposition home or self-care (01) ==
LOC: ER 14:16 → CSU 15:07
PROVIDERS: Family Medicine; Admitting Provider Student in an Organized Health Care Education/Training Program; Emergency Provider Emergency Medicine; PCP Physician Assistant; Visit Provider Student in an Organized Health Care Education/Training Program
DX: R00.2 Palpitations (principal); I10 Essential (primary) hypertension; R42 Dizziness and giddiness; R00.1 Bradycardia, unspecified
CPT/HCPCS: 36415; 70450; 71045; 80053; 80061; 80306; 81003; 82607; 82746; 83036; 83540; 83550; 83735; 84100; 84443; 84484; 85025; 85378; 87635; 93005; 93306; 93880; 96360; 96372; 99285; G0378; J0360; J1644; J7030

== ENCOUNTER 2022-11-25 17:53 | Inpatient (IN) | payer MEDICARE, OTHER, SELFPAY ==
[2022-11-25] VITALS (34 sets, daily range): BP systolic 110–154; BP diastolic 58–87; PULSE 84–123; RESP 12–34; TEMP 36.5–36.6; O2SAT 90–100
--- NOTE | 2022-11-25 18:04 | ECG_ITS ---
[facility] Test Date: 2022-11-25 Pat Name: Kalli Castaneda Department: Room: Gender: Female Unit Assembler: : 1945 Requested By: Pascual Ramon Order Number: [id number] Polina MD: Peggy Goss M.D. Measurements Intervals Taylor Rate: 110 P: 0 OH: 0 QRS: 56 QRSD: 94 T: 72 QT: 334 QTc: 454 Interpretive Statements ATRIAL FIBRILLATION WITH RAPID VENTRICULAR RESPONSE INCOMPLETE RIGHT BUNDLE BRANCH BLOCK [90+ ms QRS DURATION, TERMINAL R IN V1/V2, 40+ ms S IN I/aVL/V4/V5/V6] POSSIBLE ANTERIOR MYOCARDIAL INFARCTION , PROBABLY OLD [30 ms Q WAVE IN V3/V4, OR R < 0.2 mV IN V4] ABNORMAL RHYTHM ECG Compared to ECG 11/19/2022 17:30:30 Incomplete right bundle-branch block now present Myocardial infarct finding now present Sinus bradycardia no longer present Electronically Signed On 11-26-2022 1:53:29 GENERAL INTERNAL MEDICINE PHYSICIAN by Peggy Goss M.D. [email or web address]
--- NOTE | 2022-11-25 18:16 | XRR_ITS ---
PROCEDURE INFORMATION: Exam: XR Chest Exam date and time: 11/25/2022 6:33 PM Age: 76 years old Clinical indication: Other: Heart racing; Additional info: Cp TECHNIQUE: Imaging protocol: Radiologic exam of the chest. Views: 1 view. COMPARISON: CR XR chest 1V portable [id number] 11/19/2022 11:07 AM FINDINGS: Lungs: Unremarkable. No consolidation. Pleural spaces: Unremarkable. No pleural effusion. No pneumothorax. Heart/Mediastinum: Unremarkable. No cardiomegaly. Bones/joints: Unremarkable for age. XR/XR chest 1V portable [id number] IMPRESSION: Negative chest exam.
--- NOTE | 2022-11-25 18:24 | W.ED.ARRPALP ---
HPI - Arrhythmia/Palpitations General: Chief Complaint: Arrhythmia/Palpitations Stated Complaint: Heart raising, heart issue and coughing Time Seen by Provider: 11/25/22 18:10 Source: patient Mode of arrival: ambulatory Limitations: no limitations History of Present Illness: 76-year-old female states that over the last month or 2 months has had intermittent palpitation she had actually been admitted here last week as well they were not able to find any cause she states that today though in the last hour to 2 hours started having palpitations again with chest pain that she gets with these palpitations she is in A. fib with RVR here today she has no known history of A. fib she denies any fever denies any cough. Associated symptoms: Deny nausea or vomiting Review of Systems Const: Denies: fever(s), chills, body aches or change in appetite Eyes: Denies: blurry vision or eye discomfort ENMT: Denies: throat pain or dental pain Card: Reports: chest pain, palpitations and irregular heart rhythm Resp: Denies: dyspnea GI: Denies: abdominal pain, nausea, vomiting or diarrhea : Denies: dysuria Musc: Denies: neck pain or back pain Skin/Breast: Denies: rash Neuro: Denies: headache(s) Psych: Denies: depression Tyler/Lymph: Denies: easy bruising All/Imm: Denies: urticaria PFSH ED PFSH: Medical History Accelerated essential hypertension Heart palpitations History of nonmelanoma skin cancer MCL sprain of right knee Surgical History H/O: hysterectomy History of left knee replacement Family History Other Hypertension Stroke Social History Smoking and tobacco status: never smoked Alcohol intake: never Physical Exam Const: COMMON NORMALS: patient oriented x3 HENMT: COMMON NORMALS: normocephalic and atraumatic HEAD & SCALP: normocephalic and atraumatic Eye: COMMON NORMALS: Equal, round and reactive pupils present and EOMs intact bilaterally PUPIL: Yes Equal, round and reactive pupils present Neck/C-Spine: COMMON NORMALS: full ROM and supple Chest: COMMONS NORMALS: normal inspection of the chest and normal palpation of entire chest wall Resp: COMMON NORMALS: normal respiratory effort, No retractions, No use of accessory muscles and clear to auscultation bilaterally AUSCULTATION: clear to auscultation bilaterally Cardio: COMMON NORMALS: No murmurs present (Cardio) RATE: tachycardic RHYTHM: abnormal rhythm irregularly irregular GI: COMMON NORMALS: Normal to inspection, nondistended, normoactive bowel sounds present, Soft to palpation, non-tender and no masses PALPATION: Yes Soft to palpation Extremity: COMMON NORMALS: normal to inspection and full ROM Neuro: COMMON NORMALS: patient oriented x3, moves all extremities and no focal motor deficits Psych: COMMON NORMALS: mental status grossly normal, Normal thought process present and cooperative THOUGHT PROCESS: Normal thought process present Skin: COMMON NORMALS: no rashes or lesions noted and no wounds GENERAL SKIN EXAM: no rashes or lesions noted Course Vital Signs: Vital signs: Vital Signs Temperature 97.7 F 11/25/22 18:07 Pulse Rate 103 H 11/25/22 18:45 Respiratory Rate 28 H 11/25/22 18:45 Blood Pressure 131/85 11/25/22 18:45 Pulse Oximetry 98 11/25/22 18:45 MDM - Arrhythmia/Palpitations Medical Decision Making Patient presents here with palpitation she is in A. fib with RVR heart rate is improved here after Cardizem bolus and Cardizem drip spoke to the hospitalist will admit at this time. Lab Data 11/25/22 18:26 11/25/22 18:26 Radiology Impressions Chest X-Ray 11/25/22 18:16 IMPRESSION: Negative chest exam. Laboratory Results WBC 7.0 10^3/uL (4.0-10.0) 11/25/22 18:26 RBC 4.86 10^6/uL (4.1-5.3) 11/25/22 18:26 Hgb 14.1 g/dL (11.5-15.3) 11/25/22 18:26 Hct 43.1 % (37.0-47.0) 11/25/22 18:26 MCV 88.7 fl (81-99) 11/25/22 18:26 MCH 29.0 pg (28.0-34.0) 11/25/22 18: MCHC 32.7 g/dL (30.0-36.0) 11/25/22 18: RDW 13.6 % (12.1-15.1) 11/25/22 18: Plt Count 209 10^3/cmm (130-400) 11/25/22 18: MPV 10.6 fL (7.4-10.4) H 11/25/22 18: Neut % (Auto) 54.6 % 11/25/22 18: Lymph % (Auto) 34.3 % 11/25/22 18: [place] % (Auto) 7.8 % 11/25/22 18: Eos % (Auto) 1.4 % 11/25/22 18: Baso % (Auto) 1.6 % 11/25/22 18: Neut # (Auto) 3.83 10^3/uL (1.8-7.7) 11/25/22 18: Lymph # (Auto) 2.4 10^3/uL (0.8-4.8) 11/25/22 18: [place] # (Auto) 0.6 10^3/uL (0.2-0.9) 11/25/22 18: Eos # (Auto) 0.1 10^3/uL (0.0-0.8) 11/25/22 18: Baso # (Auto) 0.1 10^3/uL (0.0-0.1) 11/25/22 18: Nucleated RBC % (auto) 0 % 11/25/22 18: Nucleated RBCs # 0.0 /100WBC 11/25/22 18: Sodium 140 mmol/L (136-145) 11/25/22 18: Potassium 3.8 mmol/L (3.5-5.1) 11/25/22 18: Chloride 106 mmol/L (98-107) 11/25/22 18: Carbon Dioxide 23 mmol/L (22-29) 11/25/22 18: Anion Gap 14.8 (5-19) 11/25/22 18: BUN 16 mg/dL (8-23) 11/25/22 18: Creatinine 0.8 mg/dL (0.5-0.9) 11/25/22 18:26 GFR Calculation Not Reportable 11/25/22 18:26 Glucose 97 mg/dL (65-115) 11/25/22 18:26 Calculated Osmolality 291 mOsm/kg (285-295) 11/25/22 18:26 Calcium 9.7 mg/dL (8.5-10.5) 11/25/22 18:26 Total Bilirubin 0.2 mg/dL (0.15-1.2) 11/25/22 18:26 AST 19 U/L (0-32) 11/25/22 18:26 ALT 15 U/L (0-33) 11/25/22 18:26 Alkaline Phosphatase 85 U/L (35-105) 11/25/22 18:26 Troponin T Baseline 33 ng/L (0-10) H 11/25/22 18:26 Total Protein 7.1 g/dL (6.6-8.7) 11/25/22 18:26 Albumin 4.3 g/dL (3.5-5.2) 11/25/22 18:26 Globulin 2.8 g/dL (1.3-4.6) 11/25/22 18:26 EKG Data EKG 1: I personally reviewed and interpreted this EKG as follows: EKG interpretation date: 11/25/22 EKG interpretation time: 18:10 Interpretation: afib with rvr hr [address] or t wave abnormalities qrs 94 qtc 399 Other EKG comments: Chest X-Ray 11/25/22 18:16 IMPRESSION: Negative chest exam. Critical Care Time Critical Care Time: Critical Care Time: Yes Total Critical Care Time: 35 Attestation: The high probability of a clinically significant, sudden or life threatening deterioration of the patient's cv system(s) required my full and direct attention, intervention and personal management. The critical care time is as shown. This time is in addition to time spent performing any reported procedures but includes the following: [x] Data and vital sign review and interpretation [x] Patient assessment, examination and intervention [x] Documentation [x] Medication orders and management Discharge Plan Discharge Patient Disposition: Admitted As Inpatient Clinical Impression: Atrial fibrillation with rapid ventricular response Condition: Stable Prescriptions: No Action (DME) Hinged Knee Brace Qty: 1 0RF Rx Instructions: As directed (DME) Custom Molded Orthotics See Rx Instructions .Route .MEDSUPPLY Qty: 1 0RF Rx Instructions: As directed ibuprofen 600 mg tablet 600 mg PO Q8H PRN (Reason: pain) Qty: 30 0RF multivitamin Tablet 1 tab PO DAILY hydrocodone-acetaminophen 5-325 mg tablet 1 tab PO TID PRN (Reason: Pain) losartan 100 mg tablet 100 mg PO QAM potassium gluconate 595 mg (99 mg) Tablet 595 mg PO DAILY meloxicam 15 mg tablet 15 mg PO QAM cholecalciferol (vitamin D3) [Vitamin D3] 10 mcg (400 unit) Capsule 10 mcg PO DAILY Probiotic Acidophilus 1.5 mg (250 million cell) Capsule 2,000 mmu cells PO DAILY amlodipine 10 mg Tablet 10 mg PO DAILY 30 Days Qty: 30 0RF hydralazine 50 mg Tablet 50 mg PO TID 30 Days Qty: 90 0RF Referrals: Fernanda Peralta PA [Primary Care Provider] - Coding Level of Care Code ED Extract Operator for Chg Fwd Exam Comprehensive
--- NOTE | 2022-11-25 18:27 | PC.NURSE ---
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
[2022-11-25 18:34] LABS: Basophils # 0.1 10^3/uL (0.0-0.1); Basophils % 1.6 %; Eosinophils # 0.1 10^3/uL (0.0-0.8); Eosinophils % 1.4 %; Hematocrit 43.1 % (37.0-47.0); Hemoglobin 14.1 g/dL (11.5-15.3); Lymphocytes # 2.4 10^3/uL (0.8-4.8); Lymphocytes % 34.3 %; Mean Corpuscular HGB Conc 32.7 g/dL (30.0-36.0); Mean Corpuscular Volume 88.7 fl (81-99); Mean Platelet Volume 10.6 fL (7.4-10.4); Monocytes # 0.6 10^3/uL (0.2-0.9); Monocytes % 7.8 %; Neutrophils # 3.83 10^3/uL (1.8-7.7); Neutrophils % 54.6 %; Nucleated Red Blood Cells % 0 %; Platelet Count 209 10^3/cmm (130-400); Red Blood Count 4.86 10^6/uL (4.1-5.3); Red Cell Distribution Width 13.6 % (12.1-15.1)
[2022-11-25] MEDS: sodium chloride 0.9% 1,000 ML 999 ML IV (18:44)
[2022-11-25] MEDS: dilTIAZem 5 mg/mL SDV 5 mL 15 MG IVP (18:44)
[2022-11-25 18:53] LABS: Troponin(5th) Baseline 33 ng/L (0-10)
[2022-11-25 18:56] LABS: Alanine Aminotransferase 15 U/L (0-33); Albumin Level 4.3 g/dL (3.5-5.2); Alkaline Phosphatase 85 U/L (35-105); Anion Gap 14.8 (5-19); Aspartate Amino Transferase 19 U/L (0-32); Blood Urea Nitrogen 16 mg/dL (8-23); Calcium 9.7 mg/dL (8.5-10.5); Carbon Dioxide 23 mmol/L (22-29); Chloride 106 mmol/L (98-107); Globulin 2.8 g/dL (1.3-4.6); Glucose 97 mg/dL (65-115); Osmolality Calculated 291 mOsm/kg (285-295); Potassium 3.8 mmol/L (3.5-5.1); Sodium 140 mmol/L (136-145); Total Bilirubin 0.2 mg/dL (0.15-1.2); Total Protein 7.1 g/dL (6.6-8.7)
--- NOTE | 2022-11-25 19:14 | PM.HP ---
Providers/Chief Complaint Primary Care Provider: Fernanda Peralta Chief Complaint: Heart racing, heart issue and coughing History of Present Illness Kalli Castaneda is a 76 year old female who was recently discharged from the hospital after work-up for palpitations, she was supposed to see Dr. Rich today however clinic was canceled, presented to the hospital with chief complaint of palpitation and worsening shortness of breath. Patient is stating that she drinks 4 cups of coffee a day, sometimes she also adds tea, lately she has been experiencing palpitations but today it lasted for about 3 to 4 hours which made her shortness of breath worse. She does not use any oxygen. No history of A. fib. In the ER she was diagnosed with A. fib RVR required Cardizem drip to control her heart rate, at the time of my evaluation she is on Cardizem at 5 mg, A. fib RVR, no active chest pain however she is very anxious, I have given her 1 dose of Restoril D-dimer unremarkable Echo was completed recently, normal TSH Potassium 3.8, check mag level Review of Systems Const: Denies: chills Eyes: Denies: change in vision ENMT: Denies: throat pain Card: Reports: palpitations and swelling of feet/ankles Resp: Reports: dyspnea GI: Denies: abdominal pain : Denies: flank pain Musc: Denies: neck pain Skin/Breast: Denies: rash Neuro: Denies: headache(s) Psych: Reports: anxiety Endo: Denies: polyuria Tyler/Lymph: Denies: easy bruising All/Imm: Denies: urticaria Medications/Allergies Home Medications Medication Instructions Recorded Confirmed Last Taken Type Hinged Knee Brace #1 ea 01/04/20 11/24/22 Unknown Rx multivitamin 1 tab PO DAILY 04/10/21 11/24/22 11/19/22 History Custom Molded Orthotics #1 ea 08/05/21 11/24/22 Unknown Rx cholecalciferol (vitamin D3) 10 10 mcg PO DAILY 04/11/22 11/24/22 11/19/22 History mcg (400 unit) capsule (Vitamin D3) hydrocodone 5 mg-acetaminophen 325 1 tab PO TID PRN Pain 04/11/22 11/24/22 04/10/22 History mg tablet losartan 100 mg tablet 100 mg PO QAM 04/11/22 11/24/22 11/19/22 History meloxicam 15 mg tablet 15 mg PO QAM 04/11/22 11/24/22 11/19/22 History potassium gluconate 595 mg (99 mg) 595 mg PO DAILY 04/11/22 11/24/22 11/19/22 History tablet ibuprofen 600 mg tablet 600 mg PO Q8H PRN pain #30 tabs 04/16/22 11/24/22 Unknown Rx Lactobacillus acidophilus 1.5 mg 2,000 mmu cells PO DAILY 05/05/22 11/24/22 11/19/22 History (250 million cell) capsule (Probiotic Acidophilus) amlodipine 10 mg tablet 10 mg PO DAILY 30 days #30 tabs 11/21/22 11/24/22 Unknown Rx hydralazine 50 mg tablet 50 mg PO TID 30 days #90 tabs 11/21/22 11/24/22 Unknown Rx Allergies Allergy/AdvReac Type Severity Reaction Status Date / Time No Known Allergies Allergy Verified 11/25/22 20:32 PFSH Acute PFSH: Medical History Accelerated essential hypertension Heart palpitations History of nonmelanoma skin cancer MCL sprain of right knee Surgical History H/O: hysterectomy History of left knee replacement Family History Other Hypertension Stroke Social History Smoking and tobacco status: never smoked Alcohol intake: never Vitals/I&O/Wt Last Vital Signs Temp 97.7 F 11/25/22 18:07 Pulse 103 H 11/25/22 18:45 Resp 28 H 11/25/22 18:45 BP 131/85 11/25/22 18:45 Pulse Ox 98 11/25/22 18:45 Weight last 48 hrs Weight 79.379 kg Physical Exam Narrative: Patient is awake and alert A. fib RVR Euvolemic Lower extremity nonpitting edema Currently on room air Anxious appearing Appears stated age Abdomen soft Variable S1-S2 Son is at the bedside Pleasant and cooperative EOMI, PERRLA Data 11/25/22 18:26 11/25/22 18:26 A&P Assessment and plan (1) Atrial fibrillation with rapid ventricular response: (2) Heart palpitations: (3) Pre-syncope: Plan New onset A. fib RVR Currently on Cardizem drip at 5 Will start p.o. Cardizem as well Recent work-up was unremarkable Normal TSH D-dimer unremarkable Potassium 3.9 Check mag level Troponin without significant delta I would not repeat any cardiac work-up at this point Please consider cardiology consultation in the morning Patient is very anxious we will give her Restoril History of hypertension Her [id number] score will be 4 for age, female, hypertension Started on therapeutic Lovenox Cardiac diet Full code Attestations Medical Necessity Statement*: Anticipating more than 2 midnights for management of A. fib RVR Time Spent in Patient Care: 35 Coding Level of Care Code Acute Code for Chg Fwd Diagnoses Atrial fibrillation with rapid ventricular response I48.91 Heart palpitations R00.2 Pre-syncope R55
[2022-11-25] MEDS: dilTIAZem 100 MG in sodium chloride 0.9% (add-van) 100 ML IV (20:24)
[2022-11-25] MEDS: dilTIAZem 30 mg Tablet PO (20:48)
[2022-11-25] MEDS: hyDRALAzine 50 mg Tablet PO (20:48)
[2022-11-25 20:55] LABS: D Dimer 0.53 ug/mIFEU (0-0.59)
--- NOTE | 2022-11-25 21:03 | PC.NURSE ---
Dr Redd in to see patient. MD gave verbal order for Restoril 15mg PO x1 dose. RBVO
[2022-11-25 21:08] LABS: Troponin 5 2HR 25.05 ng/L (0-10)
[2022-11-25 21:15] LABS: Troponin 5 2HR Delta -7.95 ABS# (0-10)
[2022-11-25] MEDS: temazepam 15 mg Capsule PO (21:47)
[2022-11-26] VITALS (21 sets, daily range): BP systolic 96–168; BP diastolic 53–87; PULSE 76–104; RESP 13–23; TEMP 36.8–37.2; O2SAT 93–97
--- NOTE | 2022-11-26 00:32 | ECG_ITS ---
[facility] Test Date: 2022-11-26 Pat Name: Kalli Castaneda Department: Room: 112 Gender: Female Reporting Consultant: : 1945 Requested By: Brenden Redd Order Number: [id number] Polina MD: Peggy Goss M.D. Measurements Intervals Brooten Rate: 83 P: 41 AR: 167 QRS: -14 QRSD: 94 T: 68 QT: 381 QTc: 449 Interpretive Statements SINUS RHYTHM INCOMPLETE RIGHT BUNDLE BRANCH BLOCK [90+ ms QRS DURATION, TERMINAL R IN V1/V2, 40+ ms S IN I/aVL/V4/V5/V6] POSSIBLE ANTERIOR MYOCARDIAL INFARCTION , OF INDETERMINATE AGE [30 ms Q WAVE IN V3/V4, OR R < 0.2 mV IN V4] Compared to ECG 11/25/2022 18:10:26 Atrial fibrillation no longer present Myocardial infarct finding still present Electronically Signed On 11-26-2022 1:56:49 PALEONTOLOGICAL HELPER by Peggy Goss M.D. [id number]
--- NOTE | 2022-11-26 00:38 | PC.NURSE ---
Patient was noted to be in NSR on the monitor. Reviewed strip, appeared to have occurred at 0024. Strip printed. called and discussed with . Cardizem gtt was stopped and orders placed for EKG to confirm. Will continue with oral cardizem due at 0200.
[2022-11-26] MEDS: dilTIAZem 30 mg Tablet PO ×4 (02:38→20:44)
[2022-11-26] MEDS: losartan 50 mg Tablet 100 MG PO (09:21)
[2022-11-26 09:58] LABS: Blood Urea Nitrogen 16 mg/dL (8-23); Calcium 9.2 mg/dL (8.5-10.5); Carbon Dioxide 22 mmol/L (22-29); Chloride 107 mmol/L (98-107); Glucose 93 mg/dL (65-115); Osmolality Calculated 289 mOsm/kg (285-295); Sodium 139 mmol/L (136-145)
[2022-11-26 10:42] LABS: Anion Gap 14.4 (5-19); Potassium 4.4 mmol/L (3.5-5.1)
--- NOTE | 2022-11-26 13:03 | P.PN_ITS ---
Subjective Subjective: Patient converted to sinus rhythm overnight. Heart rate is controlled. She states that she has a bleeding disorder and tends to have hemorrhaging episodes from time to time. Most recent one being in May when she bled into her heart. After her knee surgery she ended up requiring transfusions and had a lot of bleeding. She states she has seen a property disposal officer in [place] and was diagnosed with a special condition however she cannot remember the name of it. Patient is refusing to take her therapeutic Lovenox at this time. I had a long discussion with her and her [id number] at bedside. We will hold Lovenox for now and because of her paroxysmal atrial fibrillation she will need some sort of a anticoagulant due to her [id number] score being high however due to her hematological disorder we will hold off on it at this time. Patient will need to follow-up with hematology to discuss this further. We will try to obtain records from her property disposal officer in [place] however hannah dutton cannot remember the name of her doctor. I did discuss with her that there is a risk of stroke due to paroxysmal atrial fibrillation and patient understands the case. Vitals/I&O/Wt Last Vital Signs Temp 98.2 F 11/26/22 11:00 Pulse 88 11/26/22 11:00 Resp 18 11/26/22 11:00 BP 123/63 11/26/22 11:00 Pulse Ox 95 11/26/22 11:00 O2 Del Method 11/26/22 11:00 11/25/22 11/26/22 11/26/22 22:59 06:59 14:59 Intake Total 1242.417 / 1242.417 572.333 / 1814.750 780 / 780 Balance 1242.417 / 1242.417 572.333 / 1814.750 780 / 780 Weight last 48 hrs Weight 79.379 kg Physical Exam Narrative: General: Alert oriented x3, patient seen lying in bed appearing comfortable at this time. [id number] at bedside. HEENT: Normocephalic, atraumatic, EOMI, breathing comfortably on room air. Cardio: Regular rate rhythm, normal S1-S2, sinus rhythm. Rate controlled Respiratory: Good bilateral air entry, no wheezes no rhonchi appreciated GI: Abdomen soft, nontender, nondistended, bowel sounds + Extremities: No lower extremity edema noted. Data 11/25/22 18:26 11/26/22 09:20 A&P Assessment and plan (1) Atrial fibrillation with rapid ventricular response: (2) Heart palpitations: (3) Pre-syncope: Plan New onset A. fib RVR Hypertension Palpitations Patient did require Cardizem drip at 5. She has been converted to oral 40 mg every 6 at this time. We will continue her on this dose at this time. I will stop amlodipine. Hold hydralazine for now. Will monitor blood pressure. Hydralazine and amlodipine were added recently about a week ago after hospital stay. I also counseled her to cut down on her caffeine intake. Recent work-up was unremarkable Normal TSH D-dimer unremarkable Potassium 3.9 Magnesium 2.0. Troponin without significant delta Will place for event monitor at discharge. Patient has had heart rates as low as 55-60 at previous EKGs during hospital stay. We will closely monitor patient's heart rate today in the hospital on telemetry to ensure she is stable on the Cardizem which we have started. History of hypertension Her [id number] score will be 4 for age, female, hypertension Therapeutic Lovenox dose. Patient did not receive any during hospital stay. She will need to follow-up with hematology either in [place] or here in [place]. We will attempt to obtain records from her property disposal officer in [place] once we have more information regarding what she saw. 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 She is sure that is not von Willebrand's disease. Unsure of his hemophilia. She will need to see cardiology at discharge. Risk of stroke risk versus benefit was discussed with the patient. We will hold off on any anticoagulation for now. Cardiac diet Full code Attestations Medical Necessity Statement*: Medication adjustments made today. Continue to hospitalize patient today to ensure she is stable on medication dosages that are started. Most likely will be able to discharge tomorrow with an event monitor. Coding Level of Care Code Established Pt Acute Code for Chg Fwd Patient Type Established History Expanded Problem Focused Exam Expanded Problem Focused Medical Decision Making Straight Forward Diagnoses Atrial fibrillation with rapid ventricular response I48.91 Heart palpitations R00.2 Pre-syncope R55 Time Spent (min) 30
[2022-11-26] MEDS: temazepam 15 mg Capsule PO (20:59)
[2022-11-27] VITALS (7 sets, daily range): BP systolic 130–142; BP diastolic 61–82; PULSE 70–90; RESP 15–19; TEMP 36.3–36.4; O2SAT 92–96
[2022-11-27] MEDS: dilTIAZem 30 mg Tablet PO (03:09)
[2022-11-27 03:29] LABS: Basophils # 0.1 10^3/uL (0.0-0.1); Basophils % 1.6 %; Eosinophils # 0.2 10^3/uL (0.0-0.8); Eosinophils % 3.2 %; Hematocrit 37.9 % (37.0-47.0); Hemoglobin 12.4 g/dL (11.5-15.3); Lymphocytes # 1.7 10^3/uL (0.8-4.8); Lymphocytes % 34.6 %; Mean Corpuscular HGB Conc 32.7 g/dL (30.0-36.0); Mean Corpuscular Hemoglobin 28.6 pg (28.0-34.0); Mean Corpuscular Volume 87.5 fl (81-99); Mean Platelet Volume 10.6 fL (7.4-10.4); Monocytes # 0.4 10^3/uL (0.2-0.9); Monocytes % 7.4 %; Neutrophils # 2.66 10^3/uL (1.8-7.7); Neutrophils % 53.2 %; Nucleated Red Blood Cells % 0 %; Platelet Count 184 10^3/cmm (130-400); Red Blood Count 4.33 10^6/uL (4.1-5.3); Red Cell Distribution Width 13.3 % (12.1-15.1)
[2022-11-27 04:01] LABS: Anion Gap 13.6 (5-19); Blood Urea Nitrogen 15 mg/dL (8-23); Calcium 8.9 mg/dL (8.5-10.5); Carbon Dioxide 23 mmol/L (22-29); Chloride 107 mmol/L (98-107); Glucose 90 mg/dL (65-115); Osmolality Calculated 290 mOsm/kg (285-295); Potassium 3.6 mmol/L (3.5-5.1); Sodium 140 mmol/L (136-145)
--- NOTE | 2022-11-27 08:26 | PM.DCS ---
Discharge Providers Date of Admission: 11/25/22 20:12 Date of Discharge: November 27, 2022 Attending Provider at Admission: Brenden Redd MD Attending Provider at Discharge: Carleen Correa MD Primary Care Provider: Fernanda Peralta Diagnoses at Discharge Discharge Diagnosis (1) Atrial fibrillation with rapid ventricular response: Status: Acute (2) Heart palpitations: Status: Acute (3) Pre-syncope: Status: Acute Reason for Visit Reason for Visit: Heart racing, heart issue and coughing Brief History: Kalli Castaneda is a 76 year old female who was recently discharged from the hospital after work-up for palpitations, she was supposed to see Dr. Rich today however clinic was canceled, presented to the hospital with chief complaint of palpitation and worsening shortness of breath.? Patient is stating that she drinks 4 cups of coffee a day, sometimes she also adds tea, lately she has been experiencing palpitations but today it lasted for about 3 to 4 hours which made her shortness of breath worse.? She does not use any oxygen.? No history of A. fib. In the ER she was diagnosed with A. fib RVR required Cardizem drip to control her heart rate, at the time of my evaluation she is on Cardizem at 5 mg, A. fib RVR, no active chest pain however she is very anxious, I have given her 1 dose of Restoril D-dimer unremarkable Echo was completed recently, normal TSH Potassium 3.8, check mag level Hospital Course Hospital Course Patient was managed for palpitation and found to be in atrial fibrillation. She required Cardizem drip at present and was converted to oral Cardizem. She has remained in sinus rhythm thereafter. She will be discharged home on Cardizem 120 daily. Patient will receive a event monitor at discharge. She was counseled to cut down on her caffeine intake. [id number] is 4. Patient recommended to be on Eliquis however due to her history of bleeding disorder we will hold off on that for now. Patient understands that there is a risk of stroke associated with atrial fibrillation. She does not know the name of the doctor she saw in [place]. Please see details on progress note dated November 26, 2022. Patient will be discharged home in stable condition at this time to see cardiology as an outpatient. Her medications were adjusted at discharge. All questions answered. Physical Exam Narrative: General: Alert oriented x3, patient seen lying in bed appearing comfortable at this time. HEENT: Normocephalic, atraumatic, EOMI, breathing comfortably on room air. Cardio: Regular rate rhythm, normal S1-S2, sinus rhythm. Rate controlled Respiratory: Good bilateral air entry, no wheezes no rhonchi appreciated GI: Abdomen soft, nontender, nondistended, bowel sounds + Extremities: No lower extremity edema noted. Discharge Data Studies Completed and Pending Completed Studies During Hospitalization Category Date Time Status CXRP [XR chest 1V portable [id number]] Stat Exams 11/25/22 18:16 Completed Radiology Impressions Chest X-Ray 11/25/22 18:16 IMPRESSION: Negative chest exam. Laboratory Results WBC 5.0 10^3/uL (4.0-10.0) 11/27/22 03:07 RBC 4.33 10^6/uL (4.1-5.3) 11/27/22 03:07 Hgb 12.4 g/dL (11.5-15.3) 11/27/22 03:07 Hct 37.9 % (37.0-47.0) 11/27/22 03:07 MCV 87.5 fl (81-99) 11/27/22 03:07 MCH 28.6 pg (28.0-34.0) 11/27/22 03:07 MCHC 32.7 g/dL (30.0-36.0) 11/27/22 03:07 RDW 13.3 % (12.1-15.1) 11/27/22 03:07 Plt Count 184 10^3/cmm (130-400) 11/27/22 03:07 MPV 10.6 fL (7.4-10.4) H 11/27/22 03:07 Neut % (Auto) 53.2 % 11/27/22 03:07 Lymph % (Auto) 34.6 % 11/27/22 03:07 Person % (Auto) 7.4 % 11/27/22 03:07 Eos % (Auto) 3.2 % 11/27/22 03:07 Baso % (Auto) 1.6 % 11/27/22 03:07 Neut # (Auto) 2.66 10^3/uL (1.8-7.7) 11/27/22 03:07 Lymph # (Auto) 1.7 10^3/uL (0.8-4.8) 11/27/22 03:07 Person # (Auto) 0.4 10^3/uL (0.2-0.9) 11/27/22 03:07 Eos # (Auto) 0.2 10^3/uL (0.0-0.8) 11/27/22 03:07 Baso # (Auto) 0.1 10^3/uL (0.0-0.1) 11/27/22 03:07 Nucleated RBC % (auto) 0 % 11/27/22 03:07 Nucleated RBCs # 0.0 /100WBC 11/27/22 03:07 D-Dimer 0.53 ug/mIFEU (0-0.59) 11/25/22 18:26 Sodium 140 mmol/L (136-145) 11/27/22 03:07 Potassium 3.6 mmol/L (3.5-5.1) 11/27/22 03:07 Chloride 107 mmol/L (98-107) 11/27/22 03:07 Carbon Dioxide 23 mmol/L (22-29) 11/27/22 03:07 Anion Gap 13.6 (5-19) 11/27/22 03:07 BUN 15 mg/dL (8-23) 11/27/22 03:07 Creatinine 0.6 mg/dL (0.5-0.9) 11/27/22 03:07 GFR Calculation Not Reportable 11/27/22 03:07 Glucose 90 mg/dL (65-115) 11/27/22 03:07 Calculated Osmolality 290 mOsm/kg (285-295) 11/27/22 03:07 Calcium 8.9 mg/dL (8.5-10.5) 11/27/22 03:07 Magnesium 2.0 mg/dL (1.7-2.3) 11/27/22 03:07 Total Bilirubin 0.2 mg/dL (0.15-1.2) 11/25/22 18:26 AST 19 U/L (0-32) 11/25/22 18:26 ALT 15 U/L (0-33) 11/25/22 18:26 Alkaline Phosphatase 85 U/L (35-105) 11/25/22 18:26 Troponin T Baseline 33 ng/L (0-10) H 11/25/22 18:26 Troponin T 120 Minute 25.05 ng/L (0-10) H 11/25/22 20:43 Delta Troponin T -7.95 ABS# (0-10) L 11/25/22 20:43 Total Protein 7.1 g/dL (6.6-8.7) 11/25/22 18:26 Albumin 4.3 g/dL (3.5-5.2) 11/25/22 18:26 Globulin 2.8 g/dL (1.3-4.6) 11/25/22 18:26 Vitals Last Vital Signs Temp 97.4 F L 11/27/22 03:10 Pulse 84 11/27/22 08:00 Resp 16 11/27/22 08:00 BP 142/75 11/27/22 03:10 Pulse Ox 96 11/27/22 08:00 O2 Del Method 11/27/22 08:00 Discharge Plan Discharge Patient Disposition: Home Condition: Stable Prescriptions: New diltiazem HCl 120 mg capsule,extended release 24hr 120 mg PO DAILY Qty: 30 0RF Continued (DME) Hinged Knee Brace Qty: 1 0RF Rx Instructions: As directed (DME) Custom Molded Orthotics See Rx Instructions .Route .MEDSUPPLY Qty: 1 0RF Rx Instructions: As directed multivitamin Tablet 1 tab PO DAILY hydrocodone-acetaminophen 5-325 mg tablet 1 tab PO TID PRN (Reason: Pain) losartan 100 mg tablet 100 mg PO QAM potassium gluconate 595 mg (99 mg) Tablet 595 mg PO DAILY cholecalciferol (vitamin D3) [Vitamin D3] 10 mcg (400 unit) Capsule 10 mcg PO DAILY Probiotic Acidophilus 1.5 mg (250 million cell) Capsule 2,000 mmu cells PO DAILY Discontinued ibuprofen 600 mg tablet 600 mg PO Q8H PRN (Reason: pain) Qty: 30 0RF meloxicam 15 mg tablet 15 mg PO QAM amlodipine 10 mg Tablet 10 mg PO DAILY 30 Days Qty: 30 0RF hydralazine 50 mg Tablet 50 mg PO TID 30 Days Qty: 90 0RF Discharge Orders: Discharge Order (Routine); Ordered 11/27/22 Ordered By: Carleen Correa Referrals: Iraj Tamez M.D [Physician] - 4-7 days (Appointment made with Dr. Tamez on Thursday at 11:45 am if you have any questions call [phone]) Fernanda Peralta PA [Primary Care Provider] - 4-7 days (Appointment scheduled on Thursday12/02/[address] Fernanda Peralta, if you have any have any questions please call [phone]) Discharge Diet: Cardiac Discharge Activity: Resume usual activity Patient Instructions: Diltiazem (By mouth) (Cardizem, Cardizem CD, Cardizem LA, Cardizem SR), A-fib (Atrial Fibrillation) (DC), Holter Monitor (GEN), Opioid Safety Discharge Attestations Time Spent in Discharge Care*: less than 30 min Status at Discharge: Cognitive status at discharge: cognitively intact, Behavioral status at discharge: cooperative, Quality Metrics Clinical Quality Measures [ No reported AMI, CVA or VTE this stay] Coding Level of Care Code Acute Code for Chg Fwd Diagnoses Atrial fibrillation with rapid ventricular response I48.91 Heart palpitations R00.2 Pre-syncope R55
[2022-11-27] MEDS: losartan 50 mg Tablet 100 MG PO (08:38)
[2022-11-27] MEDS: dilTIAZem ER (24HR) 120 mg Capsule PO (08:47)
--- NOTE | 2022-11-27 10:00 | PC.NURSE ---
discharge instructions given and explained.pt verb understanding of instructions.taken to cardiology services to have holter monitor placed.family to drive pt home
== END 2022-11-27 10:02 | disposition home or self-care (01) | DRG 310 ==
LOC: ER 19:13 → CSU 20:15
PROVIDERS: Admitting Provider Internal Medicine; Emergency Provider Emergency Medicine; PCP Physician Assistant; Visit Provider Internal Medicine
DX: I48.0 Paroxysmal atrial fibrillation (principal); Z79.891 Long term (current) use of opiate analgesic; Z85.828 Personal history of other malignant neoplasm of skin; I10 Essential (primary) hypertension
CPT/HCPCS: 36415; 71045; 80048; 80053; 83735; 84484; 85025; 85378; 93005; 96365; 96375; 99285; J3490; J7030

== ENCOUNTER → 2022-12-03 11:47 | Outpatient (BNVA) | payer MEDICARE, OTHER, SELFPAY | PROVIDERS: PCP Physician Assistant; Visit Provider Internal Medicine | DX: I48.91 Unspecified atrial fibrillation (principal); R00.2 Palpitations | CPT/HCPCS: 99204 ==

== ENCOUNTER 2023-04-01 22:01 | Emergency (ER) | payer MEDICARE, OTHER, SELFPAY ==
[2023-04-01 22:04] VITALS: BP 185/82; PULSE 60; RESP 16; TEMP 36.7; O2SAT 96
--- NOTE | 2023-04-01 22:05 | XRR_ITS ---
PROCEDURE INFORMATION: Exam: XR Right Wrist Exam date and time: 04/01/2023 10:18 PM Age: 77 years old Clinical indication: Injury or trauma; Fall; Additional info: Fall injury TECHNIQUE: Imaging protocol: Radiologic exam of the right wrist. Views: 3 or more views. COMPARISON: No relevant prior studies available. FINDINGS: Bones/joints: Acute impacted intra-articular distal radius fracture. Mild dorsal angulation of the articular surface. Displaced ulnar styloid process fracture. Unremarkable carpal bones. 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 Soft tissues: Soft tissue swelling. XR/XR wrist RT min 3V* [id number] IMPRESSION: Acute right distal radius and ulna fractures.
--- NOTE | 2023-04-01 22:05 | XRR_ITS ---
PROCEDURE INFORMATION: Exam: XR Right Shoulder Exam date and time: 04/01/2023 10:21 PM Age: 77 years old Clinical indication: Pain; Shoulder; Right; Additional info: Fall injury TECHNIQUE: Imaging protocol: Radiologic exam of the right shoulder. Views: 2 or more views. COMPARISON: CR XR chest 1V portable [id number] 11/25/2022 6:33 PM FINDINGS: Bones/joints: Osseous spurring of the medial humeral head inferiorly. Negative for fracture. Negative for dislocation. Soft tissues: Normal. XR/XR shoulder RT min 2V* [id number] IMPRESSION: Negative for acute pathology.
--- NOTE | 2023-04-01 22:06 | ED_ITS ---
HPI - Fall General: Chief Complaint: Fall Stated Complaint: Rt Wrist Injury Time Seen by Provider: 04/01/23 22:03 History of Present Illness: 77-year-old female slipped on a wet spot on the floor causing her to fall forward and catch herself. Patient injured her right wrist and complains of some right shoulder pain. Patient has range of motion of the shoulder, swelling and tenderness to the wrist joint of the right upper extremity. Patient has a history of A-fib in which she takes aspirin for daily. Patient reports that she cannot take blood thinners. Patient does take hydrocodone occasionally for severe pain. Patient has not taken anything today. Incident occurred about 1 hour prior to arrival. Associated symptoms-after fall: Denies chest pain or headache(s) Review of Systems General: Reports: 10 or more systems reviewed and unremarkable except in HPI and below Const: Denies: fever(s) Card: Denies: chest pain Resp: Denies: dyspnea GI: Denies: nausea or vomiting : Denies: difficulty voiding Musc: Reports: extremity pain and extremity swelling Neuro: Denies: headache(s) PFS ED PFSH: Medical History Accelerated essential hypertension Heart palpitations History of nonmelanoma skin cancer MCL sprain of right knee Surgical History H/O: hysterectomy History of left knee replacement Family History Other Hypertension Stroke Social History Smoking and tobacco status: never smoked Alcohol intake: never Substance/Drug Use: never Physical Exam Const: COMMON NORMALS: alert HENMT: COMMON NORMALS: atraumatic HEAD & SCALP: atraumatic Neck/C-Spine: COMMON NORMALS: full ROM CERVICAL SPINE: No Cervical spine tenderness Chest: COMMONS NORMALS: normal palpation of entire chest wall Resp: COMMON NORMALS: normal respiratory effort Cardio: COMMON NORMALS: regular rate RATE: regular rate Back/Pelvis: COMMON NORMALS: thoracic and lumbar spine normal to inspection Extremity: RIGHT UPPER EXTREMITY: Yes shoulder joint (AC joint tenderness, normal range of motion) Right shoulder: Yes Right shoulder joint inspection exam, Yes palpation and Yes Right shoulder joint ROM exam and Yes wrist (Radial swelling minimal deformity) Right wrist: Yes inspection, Yes palpation and Yes ROM (Decreased due to pain and swelling) Neuro: SENSORIUM/ORIENTATION: Yes alert Skin: COMMON NORMALS: turgor normal GENERAL SKIN EXAM: turgor normal Course Vital Signs: Vital signs: Vital Signs Temperature 98.1 F 04/01/23 22:04 Pulse Rate 60 04/01/23 22:04 Respiratory Rate 16 04/01/23 22:04 Blood Pressure 185/82 04/01/23 22:04 Pulse Oximetry 96 04/01/23 22:04 Oxygen Delivery Me thod Room Air 04/01/23 22:04 MDM - Fall Medical Decision Making 77-year-old female comes in today for injury to the right wrist. Patient had tripped and fell To sofa outstretched arm. Patient reports right wrist and shoulder pain. Swelling and tenderness is noted along the radial joint line of the right wrist. Patient also has some anterior tenderness of the right shoulder. Differential diagnosis includes fracture, contusion, sprain. X-ray of the wrist noted a radial impacted fracture, and a ulnar styloid fracture. X- ray of the shoulder noted no significant abnormality. Patient was placed in a volar splint with recommendations to follow-up with orthopedic surgeon for further treatment and evaluation. Patient reported understanding agreed to plan. No signs of neurovascular compromise was noted. Case management request was placed for follow-up. Lab Data Radiology Impressions Shoulder X-Ray 04/01/23 22:05 IMPRESSION: Negative for acute pathology. Wrist X-Ray 04/01/23 22:05 IMPRESSION: Acute right distal radius and ulna fractures. Discharge Plan Discharge Patient Disposition: Home Clinical Impression: Fracture of radius and ulna near wrist Qualifiers: Encounter type: initial encounter Fracture type: closed Laterality: right Qualified Code(s): S52.501A - Unspecified fracture of the lower end of right radius, initial encounter for closed fracture Condition: Stable Prescriptions: New hydrocodone-acetaminophen 5-325 mg tablet 1 tab PO Q6H PRN (Reason: pain (scale score 7-10)) Qty: 12 0RF No Action (DME) Custom Molded Orthotics See Rx Instructions .Route .MEDSUPPLY Qty: 1 0RF Rx Instructions: As directed Eliquis 2.5 mg tablet 2.5 mg PO BID Qty: 180 3RF multivitamin Tablet 1 tab PO DAILY hydrocodone-acetaminophen 5-325 mg tablet 1 tab PO TID PRN (Reason: Pain) losartan 100 mg tablet 100 mg PO QAM cholecalciferol (vitamin D3) [Vitamin D3] 10 mcg (400 unit) Capsule 10 mcg PO DAILY Probiotic Acidophilus 1.5 mg (250 million cell) Capsule 2,000 mmu cells PO DAILY diltiazem HCl 120 mg capsule,extended release 24hr 120 mg PO DAILY Qty: 30 0RF Discharge Orders: Discharge ED (Routine); Ordered 04/01/23 Ordered By: Jann Giles Referrals: Frenanda Peralta PA [Primary Care Provider] - Discharge Diet: Usual diet Discharge Activity: Increase activity as tolerated Patient Instructions: Splint Care (ED), Opioid Safety Activity Restrictions/Additional Instructions: Keep wound clean and dry. Activity as tolerated. Use acetaminophen and/or hydrocodone to control pain. Use hydrocodone for severe pain. Follow-up with orthopedic surgeon for further evaluation and treatment. Return to ED for new concerns. Coding Level of Care Code ED Clinical Medical Assistant for Simran Nicholson
[2023-04-01] MEDS: HYDROcodone-acetaminophen 5-325 mg Tablet 1 TAB PO (22:12)
--- NOTE | 2023-04-02 07:51 | DCPLANNER ---
Addendum entered by Lisset Valerio 04/10/23 08:40: Patient had a follow up appointment scheduled with ortho - patient did attend appointment Addendum entered by Lisset Valerio 04/02/23 11:15: Patient has a follow up appointment scheduled for , April 09, 2023 at 1:[address] Solorzano at ortho. Original Note: manager bakery had message to schedule a follow up appointment for patient with ortho. manager bakery sent patients information to the front office staff at ortho. Patients information will be printed and reviewed. Clinic will call patient with appointment information.
== END 2023-04-01 23:01 | disposition home or self-care (01) ==
PROVIDERS: Emergency Provider Nurse Practitioner Family; PCP Physician Assistant
DX: S52.501A Unspecified fracture of the lower end of right radius, initial encounter for closed fracture (principal); S52.601A Unspecified fracture of lower end of right ulna, initial encounter for closed fracture; I10 Essential (primary) hypertension; W01.0XXA Fall on same level from slipping, tripping and stumbling without subsequent striking against object, initial encounter
CPT/HCPCS: 29105; 73030; 73110; 99283

== ENCOUNTER → 2023-04-09 13:09 | Outpatient (BNVA) | payer MEDICARE, OTHER, SELFPAY | PROVIDERS: PCP Physician Assistant; Referring Provider Nurse Practitioner Family; Visit Provider Student in an Organized Health Care Education/Training Program | DX: S52.501A Unspecified fracture of the lower end of right radius, initial encounter for closed fracture (principal); S52.601A Unspecified fracture of lower end of right ulna, initial encounter for closed fracture; W01.0XXA Fall on same level from slipping, tripping and stumbling without subsequent striking against object, initial encounter | CPT/HCPCS: 25600; 73110; 97760; 99203; L3982 ==

== ENCOUNTER 2023-04-09 14:55 | Outpatient (CLI) | payer MEDICARE, OTHER, SELFPAY | END 2023-04-09 14:56 | disposition home or self-care (01) | LOC: SPT 14:55 | PROVIDERS: PCP Physician Assistant; Visit Provider Student in an Organized Health Care Education/Training Program | DX: Z46.89 Encounter for fitting and adjustment of other specified devices (principal); S52.501A Unspecified fracture of the lower end of right radius, initial encounter for closed fracture; S52.601A Unspecified fracture of lower end of right ulna, initial encounter for closed fracture; W01.0XXA Fall on same level from slipping, tripping and stumbling without subsequent striking against object, initial encounter | CPT/HCPCS: 25600; 97760; 99203; L3982 ==

== ENCOUNTER → 2023-04-23 12:59 | Outpatient (BNVA) | payer MEDICARE, OTHER, SELFPAY | PROVIDERS: PCP Physician Assistant; Visit Provider Student in an Organized Health Care Education/Training Program | DX: S52.501A Unspecified fracture of the lower end of right radius, initial encounter for closed fracture (principal); S52.601A Unspecified fracture of lower end of right ulna, initial encounter for closed fracture; X58.XXXA Exposure to other specified factors, initial encounter | CPT/HCPCS: 73110; 99213 ==

== ENCOUNTER 2023-05-25 06:00 | Outpatient (CLI) | payer MEDICARE, OTHER, SELFPAY | END 2023-05-25 23:59 | disposition home or self-care (01) | LOC: SPT 05-26 10:14 | PROVIDERS: PCP Physician Assistant; Visit Provider Student in an Organized Health Care Education/Training Program | DX: Z46.89 Encounter for fitting and adjustment of other specified devices (principal); S52.509D Unspecified fracture of the lower end of unspecified radius, subsequent encounter for closed fracture with routine healing; S52.609D Unspecified fracture of lower end of unspecified ulna, subsequent encounter for closed fracture with routine healing; X58.XXXD Exposure to other specified factors, subsequent encounter | CPT/HCPCS: 97760; 99213; L3908 ==

== ENCOUNTER → 2023-05-25 09:27 | Outpatient (BNVA) | payer MEDICARE, OTHER, SELFPAY | PROVIDERS: PCP Physician Assistant; Visit Provider Student in an Organized Health Care Education/Training Program | DX: S52.501A Unspecified fracture of the lower end of right radius, initial encounter for closed fracture; S52.601A Unspecified fracture of lower end of right ulna, initial encounter for closed fracture; X58.XXXA Exposure to other specified factors, initial encounter; Z46.89 Encounter for fitting and adjustment of other specified devices | CPT/HCPCS: 73110; 97760; 99213; L3908 ==

== ENCOUNTER 2023-05-25 15:12 | Emergency (ER) | payer MEDICARE, OTHER, SELFPAY ==
[2023-05-25] VITALS (7 sets, daily range): BP systolic 141–170; BP diastolic 86–118; PULSE 71–86; RESP 17–21; TEMP 36.8; O2SAT 96–98; BMI 30.7
--- NOTE | 2023-05-25 15:16 | XRR_ITS ---
PROCEDURE INFORMATION: Exam: XR Chest Exam date and time: 05/25/2023 3:26 PM Age: 77 years old Clinical indication: Pain; Angina pectoris; Additional info: Arrythmia TECHNIQUE: Imaging protocol: Radiologic exam of the chest. Views: 1 view. COMPARISON: CR XR chest 1V portable [id number] 11/25/2022 6:33 PM FINDINGS: Lungs: Unremarkable. No consolidation. Pleural spaces: Unremarkable. No pleural effusion. No pneumothorax. Heart/Mediastinum: Unremarkable. No cardiomegaly. Bones/joints: Unremarkable. XR/XR chest 1V portable [id number] IMPRESSION: No acute findings.
[2023-05-25 15:28] LABS: Basophils # 0.1 10^3/uL (0.0-0.1); Basophils % 1.4 %; Eosinophils # 0.1 10^3/uL (0.0-0.8); Eosinophils % 1.6 %; Hematocrit 38.6 % (37.0-47.0); Lymphocytes # 2.2 10^3/uL (0.8-4.8); Lymphocytes % 31.1 %; Mean Corpuscular HGB Conc 33.7 g/dL (30.0-36.0); Mean Corpuscular Hemoglobin 28.6 pg (28.0-34.0); Mean Platelet Volume 11.3 fL (7.4-10.4); Monocytes # 0.4 10^3/uL (0.2-0.9); Neutrophils # 4.15 10^3/uL (1.8-7.7); Neutrophils % 59.6 %; Nucleated Red Blood Cells % 0 %; Platelet Count 193 10^3/cmm (130-400); Red Blood Count 4.54 10^6/uL (4.1-5.3); Red Cell Distribution Width 13.3 % (12.1-15.1)
[2023-05-25 15:43] LABS: INR 0.88 (0.8-1.2)
--- NOTE | 2023-05-25 15:44 | ECG_ITS ---
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 Measurements Intervals [place] Rate: 75 P: 74 OR: 189 QRS: 76 QRSD: 102 T: 77 QT: 372 QTc: 416 Interpretive Statements SINUS RHYTHM LOW QRS VOLTAGE IN PRECORDIAL LEADS [QRS DEFLECTION < 1.0 mV IN CHEST LEADS] Compared to ECG 11/26/2022 01:01:47 Low QRS voltage now present Incomplete right bundle-branch block no longer present Myocardial infarct finding no longer present Electronically Signed On 05-25-2023 16:15:01 CDT by Iraj Tamez M.D. [id number]
--- NOTE | 2023-05-25 15:49 | W.ED.ARRPALP ---
HPI - Arrhythmia/Palpitations General: Chief Complaint: Arrhythmia/Palpitations Stated Complaint: IRREGULAR HEART RATE Time Seen by Provider: 05/25/23 15:15 History of Present Illness: Presents to the ER with complaints of intermittent tachycardic episodes. These have been going on for the last 3 to 4 days but they have been getting worse in severity and duration. Patient got anxious and decided to come to the ER to have them checked out but by the time she arrived here by EMS they had all resolved. Denies any chest pain but does states she is mildly short of breath at the moment. Patient is satting 97% on room air. Patient was diagnosed with A-fib earlier this year. Patient is on 325 mg aspirin as a blood thinner. Patient states she has a blood disorder where she bruises and bleeds easier and has tried Eliquis but then she bled way too much. Review of Systems General: Reports: 10 or more systems reviewed and unremarkable except in HPI and below PFSH ED PFSH: Medical History Accelerated essential hypertension Heart palpitations History of nonmelanoma skin cancer MCL sprain of right knee Surgical History H/O: hysterectomy History of left knee replacement Family History Other Hypertension Stroke Social History Smoking and tobacco status: never smoked Alcohol intake: never Substance/Drug Use: never Physical Exam Const: COMMON NORMALS: no acute distress, average body habitus, patient oriented x3, no limitations, healthy appearing, alert and well nourished HENMT: COMMON NORMALS: normocephalic, atraumatic, hearing grossly normal bilaterally, external ears normal, Normal external nose present and moist oral mucous membranes HEAD & SCALP: normocephalic and atraumatic NOSE: Normal external nose present EXTERNAL EAR: Yes external ears normal Neck/C-Spine: COMMON NORMALS: full ROM, no lymphadenopathy, supple, no meningeal signs, no JVD and Thyroid normal THYROID: Thyroid normal Chest: COMMONS NORMALS: normal inspection of the chest and normal palpation of entire chest wall Resp: COMMON NORMALS: normal respiratory effort, No retractions, No use of accessory muscles and clear to auscultation bilaterally AUSCULTATION: clear to auscultation bilaterally Cardio: COMMON NORMALS: no JVD, regular rate, regular rhythm, S1 normal heart sound present, S2 normal heart sound present, No gallops present (Cardio), No clicks present (Cardio), No murmurs present (Cardio) and No rub (Cardio) RATE: regular rate RHYTHM: regular rhythm HEART SOUNDS: S1 normal heart sound present and S2 normal heart sound present GI: COMMON NORMALS: Normal to inspection, nondistended, normoactive bowel sounds present, Soft to palpation, non-tender, No hepatosplenomegaly present and no masses PALPATION: Yes Soft to palpation and Yes No hepatosplenomegaly present : COMMON NORMALS: Yes no CVA tenderness BLADDER/KIDNEY EXAM: Yes no CVA tenderness Back/Pelvis: COMMON NORMALS: no CVA tenderness Neuro: COMMON NORMALS: patient oriented x3 SENSORIUM/ORIENTATION: Yes alert MENINGEAL SIGNS: Yes no meningeal signs Course Vital Signs: Vital signs: Vital Signs Temperature 98.3 F 05/25/23 15:14 Pulse Rate 71 05/25/23 17:00 Respiratory Rate 21 H 05/25/23 16:30 Blood Pressure 141/108 05/25/23 17:00 Pulse Oximetry 96 05/25/23 17:00 Oxygen Delivery Me thod Room Air 05/25/23 15:14 MDM - Arrhythmia/Palpitations Medical Decision Making CanPresents to the ER for an tachycardic like episodes. Patient does have a history of A-fib. Lab work was obtained EKGs were obtained and chest x-ray all of which was essentially benign finding. Patient did not have any episodes of arrhythmia like activity during her stay in ER. Patient be discharged home to follow-up with her PCP Differential Diagnosis Likely palpitations and artial fibrillation; Unlikely anxiety, sinus tachycardia, artial flutter, ventricular premature beats, supraventricular tachycardia, ventricular tachycardia or WPW Medical Records I reviewed the patient's medical records. Lab Data I reviewed the patient's lab results. 05/25/23 15:10 05/25/23 15:10 Radiology Impressions Chest X-Ray 05/25/23 15:16 IMPRESSION: No acute findings. Laboratory Results WBC 7.0 10^3/uL (4.0-10.0) 05/25/23 15:10 RBC 4.54 10^6/uL (4.1-5.3) 05/25/23 15:10 Hgb 13.0 g/dL (11.5-15.3) 05/25/23 15:10 Hct 38.6 % (37.0-47.0) 05/25/23 15:10 MCV 85.0 fl (81-99) 05/25/23 15:10 MCH 28.6 pg (28.0-34.0) 05/25/23 15:10 MCHC 33.7 g/dL (30.0-36.0) 05/25/23 15:10 RDW 13.3 % (12.1-15.1) 05/25/23 15:10 Plt Count 193 10^3/cmm (130-400) 05/25/23 15:10 MPV 11.3 fL (7.4-10.4) H 05/25/23 15:10 Neut % (Auto) 59.6 % 05/25/23 15:10 Lymph % (Auto) 31.1 % 05/25/23 15:10 [place] % (Auto) 6.0 % 05/25/23 15:10 Eos % (Auto) 1.6 % 05/25/23 15:10 Baso % (Auto) 1.4 % 05/25/23 15:10 Neut # (Auto) 4.15 10^3/uL (1.8-7.7) 05/25/23 15:10 Lymph # (Auto) 2.2 10^3/uL (0.8-4.8) 05/25/23 15:10 [place] # (Auto) 0.4 10^3/uL (0.2-0.9) 05/25/23 15:10 Eos # (Auto) 0.1 10^3/uL (0.0-0.8) 05/25/23 15:10 Baso # (Auto) 0.1 10^3/uL (0.0-0.1) 05/25/23 15:10 Nucleated RBC % (auto) 0 % 05/25/23 15:10 Nucleated RBCs # 0.0 /100WBC 05/25/23 15:10 PT 12.20 SECONDS (12.1-14.9) 05/25/23 15:10 INR 0.88 (0.8-1.2) 05/25/23 15:10 Sodium 141 mmol/L (136-145) 05/25/23 15:10 Potassium 3.7 mmol/L (3.5-5.1) 05/25/23 15:10 Chloride 108 mmol/L (98-107) H 05/25/23 15:10 Carbon Dioxide 22 mmol/L (22-29) 05/25/23 15:10 Anion Gap 14.7 (5-19) 05/25/23 15:10 BUN 12 mg/dL (8-23) 05/25/23 15:10 Creatinine 0.7 mg/dL (0.5-0.9) 05/25/23 15:10 GFR Calculation Not Reportable 05/25/23 15:10 Glucose 92 mg/dL (65-115) 05/25/23 15:10 Calculated Osmolality 291 mOsm/kg (285-295) 05/25/23 15:10 Calcium 9.3 mg/dL (8.5-10.5) 05/25/23 15:10 Total Bilirubin 0.2 mg/dL (0.15-1.2) 05/25/23 15:10 AST 19 U/L (0-32) 05/25/23 15:10 ALT 15 U/L (0-33) 05/25/23 15:10 Alkaline Phosphatase 79 U/L (35-105) 05/25/23 15:10 Troponin T Baseline 6 ng/L (0-10) 05/25/23 15:10 Troponin T 120 Minute 6.78 ng/L (0-10) 05/25/23 17:08 Total Protein 6.6 g/dL (6.6-8.7) 05/25/23 15:10 Albumin 4.0 g/dL (3.5-5.2) 05/25/23 15:10 Globulin 2.6 g/dL (1.3-4.6) 05/25/23 15:10 TSH 1.26 uIU/mL (0.27-4.20) 05/25/23 15:10 EKG Data EKG 1: I personally reviewed and interpreted this EKG as follows: EKG interpretation date: 05/25/23 EKG interpretation time: 15:44 Prior EKG tracings: not available for review Interpretation: EKG showed sinus rhythm at 75 bpm, VA interval 189, QRS 102, QTc of 400, Other EKG comments: Chest X-Ray 05/25/23 15:16 IMPRESSION: No acute findings. EKG 2: I personally reviewed and interpreted this EKG as follows: EKG interpretation date: 05/25/23 EKG interpretation time: 17:53 Prior EKG tracings: available for review Interpretation: EKG showed sinus bradycardia with ventricular rate of 58 bpm, VA interval 190, QRS duration 101, QTc of 406, no ST-T wave changes Other EKG comments: Chest X-Ray 05/25/23 15:16 IMPRESSION: No acute findings. Discharge Plan Discharge Patient Disposition: Home Clinical Impression: Heart palpitations Atrial fibrillation Qualifiers: Atrial fibrillation type: paroxysmal Qualified Code(s): I48.0 - Paroxysmal atrial fibrillation Condition: Stable Prescriptions: No Action (DME) Custom Molded Orthotics See Rx Instructions .Route .MEDSUPPLY Qty: 1 0RF Rx Instructions: As directed (DME) fast form cast to the right See Rx Instructions .Route .MEDSUPPLY Qty: 1 0RF Rx Instructions: As directed (DME) Cock up splint See Rx Instructions .Route .MEDSUPPLY Qty: 1 0RF Rx Instructions: As directed multivitamin Tablet 1 tab PO QAM hydrocodone-acetaminophen 5-325 mg tablet 1 tab PO TID PRN (Reason: Pain) losartan 100 mg tablet 100 mg PO QAM cholecalciferol (vitamin D3) [Vitamin D3] 10 mcg (400 unit) Capsule 10 mcg PO DAILY aspirin 325 mg Tablet 325 mg PO QPM Probiotic Blend 2 billion cell-50 mg Capsule 1 cap PO DAILY diltiazem HCl 120 mg capsule,extended release 24hr 120 mg PO BEDTIME Discharge Orders: Discharge ED (Routine); Ordered 05/25/23 Ordered By: Curt Diez Referrals: Fernanda Peralta PA [Primary Care Provider] - 1 week Patient Instructions: Heart Palpitations, A-fib (Atrial Fibrillation) (ED) Activity Restrictions/Additional Instructions: Please follow-up with your doctor in approximately 7 days or sooner as needed for further evaluation and treatment. If your heart starts beating superfast or acting up again please return to the ER for evaluation. Coding Level of Care Code ED Aboriginal Education Worker Coordinator for Chg Lyn
--- NOTE | 2023-05-25 15:50 | PC.PHAR ---
pt states she takes care of her own medications-pt states she dced her eliquis 2.5mg bid pt states she dced eliquis about 4-5 months ago-
[2023-05-25 15:52] LABS: Troponin(5th) Baseline 6 ng/L (0-10)
[2023-05-25 16:00] LABS: Alanine Aminotransferase 15 U/L (0-33); Alkaline Phosphatase 79 U/L (35-105); Anion Gap 14.7 (5-19); Aspartate Amino Transferase 19 U/L (0-32); Blood Urea Nitrogen 12 mg/dL (8-23); Calcium 9.3 mg/dL (8.5-10.5); Carbon Dioxide 22 mmol/L (22-29); Chloride 108 mmol/L (98-107); Creatinine Clr Calc Pharmacy 63.0012; Globulin 2.6 g/dL (1.3-4.6); Glucose 92 mg/dL (65-115); Osmolality Calculated 291 mOsm/kg (285-295); Potassium 3.7 mmol/L (3.5-5.1); Sodium 141 mmol/L (136-145); Thyroid Stimulating Hormone 1.26 uIU/mL (0.27-4.20); Total Bilirubin 0.2 mg/dL (0.15-1.2); Total Protein 6.6 g/dL (6.6-8.7)
--- NOTE | 2023-05-25 17:16 | ECG_ITS ---
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 Measurements Intervals [place] Rate: 58 P: 47 CA: 190 QRS: 47 QRSD: 101 T: 66 QT: 409 QTc: 404 Interpretive Statements SINUS BRADYCARDIA Compared to ECG 05/25/2023 15:44:28 Sinus rhythm no longer present Myocardial infarct finding no longer present Electronically Signed On 05-26-2023 20:28:50 CDT by Ramirez Mercado M.D. [id number]
[2023-05-25 17:48] LABS: Troponin 5 2HR 6.78 ng/L (0-10)
[2023-05-25 18:04] LABS: Troponin 5 2HR Delta 0.78 ABS# (0-10)
== END 2023-05-25 18:12 | disposition home or self-care (01) ==
PROVIDERS: Emergency Provider Emergency Medicine; PCP Physician Assistant
DX: R00.2 Palpitations (principal); I48.0 Paroxysmal atrial fibrillation; Z79.82 Long term (current) use of aspirin; I10 Essential (primary) hypertension
CPT/HCPCS: 36415; 71045; 80053; 84443; 84484; 85025; 85610; 93005; 99285

== ENCOUNTER 2023-06-02 13:24 | Outpatient (RCR) | payer MEDICARE, OTHER, SELFPAY | END 2023-06-25 23:59 | disposition home or self-care (01) | LOC: SOT 13:24 | PROVIDERS: Visit Provider Student in an Organized Health Care Education/Training Program | DX: S52.501D Unspecified fracture of the lower end of right radius, subsequent encounter for closed fracture with routine healing (principal); X58.XXXD Exposure to other specified factors, subsequent encounter | CPT/HCPCS: 97022; 97110; 97140; 97165; 97530 ==

== ENCOUNTER 2023-06-26 06:00 | Outpatient (RCR) | payer MEDICARE, OTHER, SELFPAY | END 2023-07-25 23:59 | disposition home or self-care (01) | LOC: SOT 06:00 | PROVIDERS: Visit Provider Student in an Organized Health Care Education/Training Program | DX: S52.501D Unspecified fracture of the lower end of right radius, subsequent encounter for closed fracture with routine healing (principal); W19.XXXD Unspecified fall, subsequent encounter | CPT/HCPCS: 97022; 97110; 97140 ==

== ENCOUNTER → 2023-07-07 12:53 | Outpatient (BNVA) | payer MEDICARE, OTHER, SELFPAY | PROVIDERS: PCP Physician Assistant; Visit Provider Physician Assistant | DX: S52.501A Unspecified fracture of the lower end of right radius, initial encounter for closed fracture; S52.601A Unspecified fracture of lower end of right ulna, initial encounter for closed fracture; X58.XXXA Exposure to other specified factors, initial encounter | CPT/HCPCS: 73110; 99213 ==

== ENCOUNTER 2023-09-02 20:00 | Outpatient (CLI) | payer MEDICARE, OTHER, SELFPAY | END 2023-09-02 20:01 | disposition home or self-care (01) | LOC: SLEEP 09-03 06:06 | PROVIDERS: PCP Physician Assistant; Visit Provider Specialist | DX: G47.33 Obstructive sleep apnea (adult) (pediatric) (principal); I10 Essential (primary) hypertension | CPT/HCPCS: 95810 ==

== ENCOUNTER 2023-10-08 19:32 | Emergency (ER) | payer MEDICARE, OTHER, SELFPAY ==
[2023-10-08 19:49] VITALS: BP 134/82; PULSE 118; RESP 20; TEMP 37.4; O2SAT 97; BMI 28.3
--- NOTE | 2023-10-08 19:55 | ECG_ITS ---
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 Measurements Intervals [place] Rate: 105 P: 46 RI: 190 QRS: 16 QRSD: 95 T: 72 QT: 327 QTc: 433 Interpretive Statements SINUS TACHYCARDIA WITH OCCASIONAL VENTRICULAR PREMATURE COMPLEXES POSSIBLE LEFT ATRIAL ENLARGEMENT [-0.1mV P-WAVE IN V1/V2] INCOMPLETE RIGHT BUNDLE BRANCH BLOCK [90+ ms QRS DURATION, TERMINAL R IN V1/V2, 40+ ms S IN I/aVL/V4/V5/V6] POSSIBLE ANTERIOR MYOCARDIAL INFARCTION , OF INDETERMINATE AGE [30 ms Q WAVE IN V3/V4, OR R < 0.2 mV IN V4] Compared to ECG 05/25/2023 17:53:38 Ventricular premature complex(es) now present Incomplete right bundle-branch block now present Myocardial infarct finding now present Sinus bradycardia no longer present Electronically Signed On 10-08-2023 21:17:24 CODE ENFORCEMENT SUPERVISOR by Peggy Goss M.D. [id number]
--- NOTE | 2023-10-08 19:55 | XRR_ITS ---
PROCEDURE INFORMATION: Exam: XR Chest Exam date and time: 10/08/2023 8:23 PM Age: 77 years old Clinical indication: Chest wall pain; Additional info: Chest pain TECHNIQUE: Imaging protocol: Radiologic exam of the chest. Views: 1 view. COMPARISON: CR XR chest 1V portable [id number] 05/25/2023 3:26 PM FINDINGS: Lungs: Unremarkable. No consolidation. Pleural spaces: Unremarkable. No pleural effusion. No pneumothorax. Heart/Mediastinum: Unremarkable. No cardiomegaly. Bones/joints: Mild degenerative changes along the spine and shoulders. XR/XR chest 1V portable [id number] IMPRESSION: No acute findings.
--- NOTE | 2023-10-08 20:06 | ED_ITS ---
HPI - Arrhythmia/Palpitations 2 General: Chief Complaint: Arrhythmia/Palpitations Stated Complaint: Dizzy\Chest Hurts a little\Fever Time Seen by Provider: 10/08/23 20:05 History of Present Illness: 77-year-old female presents the emergenc y department with complaints of feeling like she has having a racing heart today. She said it started yesterday at approximately 2 PM she states she has a diagnosis of atrial fibrillation and takes losartan as her only medication. She states that she will intermittently feel extra beats and feels every one of her PVCs. She states she does not take anticoagulation as she became very bruised last time she took anticoagulation. She states when her heart starts going fast she starts feeling short of breath. She also endorses some dizziness when she starts feeling like her heart is going fast. Review of Systems 2 General: Reports: 10 or more systems reviewed and unremarkable except in HPI and below Card: Reports: palpitations and irregular heart rhythm Neuro: Reports: dizziness PFSH ED 2 PFSH: Medical History Accelerated essential hypertension Heart palpitations History of nonmelanoma skin cancer MCL sprain of right knee Surgical History H/O: hysterectomy History of left knee replacement Family History Other Hypertension Stroke Social History Smoking and tobacco/nicotine status: never used tobacco/nicotine Alcohol intake: never Substance/Drug Use: never Physical Exam 2 Narrative: EXAM NARRATIVE: Constitutional: the patient appears well nourished and with normal development. Vital signs reviewed as documented. HENMT: Normocephalic, atraumatic. Extermal ears with normal appearance without drainage. Nose without drainage, normal appearance. Mucus membranes moist. Neck is supple, No jugular venous distension, trachea is midline, no appreciable carotid bruits. No lymphadenopathy. No meningeal signs. Flexion, extension and lateral rotation is without pain. Eyes: Pupils are equal, round, reactive to light and accommodation. No scleral icterus. Extra-ocular movement are intact. Thorax is symmetrical and with equal rise and fall with respirations. Resp: Lungs are clear to auscultation. No wheezes, rales, crackles or ronchi at present. Cardio: Regular rate and rhythm. Positive S1, S2. No appreciable murmurs, rubs or gallops. GI: Abdominal exam reveals normal bowel sounds to all quadrants. No organomegaly. No obvious palpable masses noted. No hepatomegally appreciated. Soft, nontender to palpation. Extremity: Extremities are non-edematous and both femoral and pedal pulses are 2+ and equal bilaterally. Moves all extremities well, sensation in all extremities. Neuro: Alert and oriented x4, person, place, time and situation. Cranial nerves II through XII are grossly intact, there is no focal neurological deficits that I can appreciate at present. Motor strength in the upper and lower extremities are equal and bilateral 5/5. Psych: Cooperative, calm, normal thought process, appropriate judgment. Skin: No lesions, rashes. No gross abnormalities noted. Back: Symmetrical, no obvious deformity, No CVA tenderness Course 2 Vital Signs: Vital signs: Vital Signs Temperature 99.3 F 10/08/23 19:49 Pulse Rate 99 10/08/23 22:36 Respiratory Rate 18 10/08/23 22:36 Blood Pressure 147/70 10/08/23 22:36 Pulse Oximetry 95 10/08/23 22:36 Oxygen Delivery Me thod Room Air 10/08/23 21:06 MDM - Arrhythmia/Palpitations Medical Decision Making Physical exam completed and documented, I will obtain serial cardiac enzymes, serial twelve-lead EKGs, chest x-ray, CBC, CMP, urinalysis, B-type natriuretic peptide, PT/PTT/INR, and a chest x-ray. I provide cardiac dose aspirin if indicated and nitroglycerin administration if indicated. Pending the review of the twelve-lead EKG I will also consider providing loading dose of heparin and possible heparin drip as well as evaluate the need for nitroglycerin drip, and reevaluate accordingly. I will review any pervious and pertinent medical records for assist in obtaining beneficial medical information to improved the care and treatment of the patient. I will reevaluate in consider hospitalist consultation and cardiology consultation. Medical Records I reviewed the patient's medical records. Lab Data I reviewed the patient's lab results. 10/08/23 20:13 10/08/23 20:13 Radiology Impressions Chest X-Ray 10/08/23 19:55 IMPRESSION: No acute findings. Laboratory Results WBC 3.38 10^3/uL (3.29-11.43) 10/08/23 20:13 RBC 4.76 10^6/uL (3.85-5.65) 10/08/23 20:13 Hgb 13.80 g/dL (11.27-16.99) 10/08/23 20:13 Hct 39.8 % (36-47) 10/08/23 20:13 MCV 83.6 fl (85-98) L 10/08/23 20:13 MCH 29.0 pg (27-33) 10/08/23 20:13 MCHC 34.7 g/dL (30-55) 10/08/23 20:13 RDW 12.8 % (12.1-15.1) 10/08/23 20:13 Plt Count 168 10^3/cmm (157-399) 10/08/23 20:13 MPV 10.8 fL (7.4-10.4) H 10/08/23 20:13 Neut % (Auto) 76.3 % 10/08/23 20:13 Lymph % (Auto) 10.1 % 10/08/23 20:13 Mcduffie % (Auto) 11.2 % 10/08/23 20:13 Eos % (Auto) 0.9 % 10/08/23 20:13 Baso % (Auto) 1.5 % 10/08/23 20:13 Neut # (Auto) 2.58 10^3/uL (1.8-7.7) 10/08/23 20:13 Lymph # (Auto) 0.3 10^3/uL (0.8-4.8) L 10/08/23 20:13 [place]duffie # (Auto) 0.4 10^3/uL (0.2-0.9) 10/08/23 20:13 Eos # (Auto) 0.0 10^3/uL (0.0-0.8) 10/08/23 20:13 Baso # (Auto) 0.1 10^3/uL (0.0-0.1) 10/08/23 20:13 Nucleated RBC % (auto) 0 % 10/08/23 20:13 Nucleated RBCs # 0.0 /100WBC 10/08/23 20:13 Sodium 136 mmol/L (136-145) 10/08/23 20:13 Potassium 3.6 mmol/L (3.5-5.1) 10/08/23 20:13 Chloride 103 mmol/L (98-107) 10/08/23 20:13 Carbon Dioxide 19 mmol/L (22-29) L 10/08/23 20:13 Anion Gap 17.6 (5-19) 10/08/23 20:13 BUN 15 mg/dL (8-23) 10/08/23 20:13 Creatinine 0.9 mg/dL (0.5-0.9) 10/08/23 20:13 GFR Calculation Not Reportable 10/08/23 20:13 Glucose 104 mg/dL (65-115) 10/08/23 20:13 Calculated Osmolality 283 mOsm/kg (285-295) L 10/08/23 20:13 Calcium 9.8 mg/dL (8.5-10.5) 10/08/23 20:13 Troponin T Baseline 11 ng/L (0-10) H 10/08/23 20:13 Troponin T 120 Minute 10.47 ng/L (0-10) H 10/08/23 22:00 Delta Troponin T -0.53 ABS# (0-10) L 10/08/23 22:00 All radiology interpretation(s) finalized by discharge EKG Data EKG 1: Interpretation: Twelve-lead EKG obtained at 1946 and reviewed at 1948 demonstrates sinus tachycardia with a incomplete right bundle branch block with a ventricular rate of 118 bpm, OR interval 180 QRS duration 97 QT 313 QTc 383 at present the rate is too fast to determine ST elevation or depression and there is severe motion artifact noted on the twelve-lead EKG which makes it near uninterpretable. Other EKG comments: Chest X-Ray 10/08/23 19:55 IMPRESSION: No acute findings. Discharge Plan Discharge Patient Disposition: Home Clinical Impression: Intermittent palpitations Atrial fibrillation Qualifiers: Atrial fibrillation type: paroxysmal Qualified Code(s): I48.0 - Paroxysmal atrial fibrillation Condition: Stable Prescriptions: New Cardizem 60 mg tablet 60 mg PO Q12H Qty: 60 0RF No Action (DME) Custom Molded Orthotics See Rx Instructions .Route .MEDSUPPLY Qty: 1 0RF Rx Instructions: As directed (DME) fast form cast to the right See Rx Instructions .Route .MEDSUPPLY Qty: 1 0RF Rx Instructions: As directed (DME) Cock up splint See Rx Instructions .Route .MEDSUPPLY Qty: 1 0RF Rx Instructions: As directed amoxicillin 500 mg capsule 500 mg PO BID multivitamin Tablet 1 tab PO QAM hydrocodone-acetaminophen 5-325 mg tablet 1 tab PO TID PRN (Reason: Pain) losartan 100 mg tablet 100 mg PO QAM cholecalciferol (vitamin D3) [Vitamin D3] 10 mcg (400 unit) Capsule 10 mcg PO DAILY aspirin 325 mg Tablet 325 mg PO QPM Probiotic Blend 2 billion cell-50 mg Capsule 1 cap PO DAILY diltiazem HCl 120 mg capsule,extended release 24hr 120 mg PO BEDTIME Discharge Orders: Discharge ED (Routine); Ordered 10/08/23 Ordered By: Mikie Galvin Referrals: Ramirez Mercado MD [Physician] - Fernanda Peralta PA [Primary Care Provider] - Discharge Diet: Advance as tolerated Discharge Activity: Resume usual activity Patient Instructions: Opioid Safety, Pain Management Activity Restrictions/Additional Instructions: Activity Restrictions/Additional Instructions: Thank you for choosing [facility] for your healthcare needs today. Please realize that you were seen in the Emergency Department and that we are providing you with an emergency medical screening exam and this may not be a complete and all inclusive of all the testing and or medical work-up that you may need to determine your ailment or severity of your illness. It is very important that you follow-up as instructed with your Primary care provider or Specialist for additional evaluation and to discuss your medical treatment plan. You may return to the Emergency Department should you have concerns or if your condition changes or worsens in any way. Coding Level of Care Code ED Open Shank Coverer for Simran Nicholson
[2023-10-08 20:15] VITALS: BP 156/86; PULSE 109; RESP 24; O2SAT 99
[2023-10-08 20:25] LABS: Basophils # 0.1 10^3/uL (0.0-0.1); Basophils % 1.5 %; Eosinophils % 0.9 %; Hematocrit 39.8 % (36-47); Lymphocytes # 0.3 10^3/uL (0.8-4.8); Lymphocytes % 10.1 %; Mean Corpuscular HGB Conc 34.7 g/dL (30-55); Mean Corpuscular Volume 83.6 fl (85-98); Mean Platelet Volume 10.8 fL (7.4-10.4); Monocytes # 0.4 10^3/uL (0.2-0.9); Monocytes % 11.2 %; Neutrophils # 2.58 10^3/uL (1.8-7.7); Neutrophils % 76.3 %; Nucleated Red Blood Cells % 0 %; Platelet Count 168 10^3/cmm (157-399); Red Blood Count 4.76 10^6/uL (3.85-5.65); Red Cell Distribution Width 12.8 % (12.1-15.1); White Blood Count 3.38 10^3/uL (3.29-11.43)
[2023-10-08] MEDS: metoprolol tartrate 1 mg/1 mL SDV 5 mL 5 MG IVP (20:25)
[2023-10-08 20:52] LABS: Troponin(5th) Baseline 11 ng/L (0-10)
[2023-10-08 21:06] VITALS: BP 174/94; PULSE 105; RESP 20; O2SAT 96
[2023-10-08] MEDS: dilTIAZem 5 mg/mL SDV 5 mL 20 MG IVP (21:08)
[2023-10-08 21:27] LABS: Anion Gap 17.6 (5-19); Blood Urea Nitrogen 15 mg/dL (8-23); Calcium 9.8 mg/dL (8.5-10.5); Carbon Dioxide 19 mmol/L (22-29); Chloride 103 mmol/L (98-107); Glucose 104 mg/dL (65-115); Osmolality Calculated 283 mOsm/kg (285-295); Potassium 3.6 mmol/L (3.5-5.1); Sodium 136 mmol/L (136-145)
[2023-10-08] MEDS: dilTIAZem ER (12HR) 60 mg Capsule PO (21:38)
--- NOTE | 2023-10-08 21:53 | ECG_ITS ---
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 Measurements Intervals [place] Rate: 100 P: 49 MI: 206 QRS: 17 QRSD: 100 T: 67 QT: 337 QTc: 436 Interpretive Statements SINUS TACHYCARDIA POSSIBLE LEFT ATRIAL ENLARGEMENT [-0.1mV P-WAVE IN V1/V2] LOW QRS VOLTAGE IN PRECORDIAL LEADS [QRS DEFLECTION < 1.0 mV IN CHEST LEADS] INCOMPLETE RIGHT BUNDLE BRANCH BLOCK [90+ ms QRS DURATION, TERMINAL R IN V1/V2, 40+ ms S IN I/aVL/V4/V5/V6] POSSIBLE ANTERIOR MYOCARDIAL INFARCTION , OF INDETERMINATE AGE [30 ms Q WAVE IN V3/V4, OR R < 0.2 mV IN V4] Compared to ECG 10/08/2023 20:22:01 Low QRS voltage now present Ventricular premature complex(es) no longer present Myocardial infarct finding still present Electronically Signed On 10-09-2023 13:43:54 SHELTER SUPERVISOR by Gregory Nguyen M.D. [id number]
[2023-10-08 22:22] LABS: Troponin 5 2HR 10.47 ng/L (0-10)
[2023-10-08 22:25] LABS: Troponin 5 2HR Delta -0.53 ABS# (0-10)
[2023-10-08 22:36] VITALS: BP 147/70; PULSE 99; RESP 18; O2SAT 95
== END 2023-10-08 22:30 | disposition home or self-care (01) ==
PROVIDERS: Emergency Provider Internal Medicine; PCP Physician Assistant
DX: R00.2 Palpitations (principal); I48.0 Paroxysmal atrial fibrillation; Z79.82 Long term (current) use of aspirin; I10 Essential (primary) hypertension
CPT/HCPCS: 36415; 71045; 80048; 84484; 85025; 93005; 96374; 96375; 99285; J3490

== ENCOUNTER → 2023-12-08 14:24 | Outpatient (BNVA) | payer MEDICARE, OTHER, SELFPAY | PROVIDERS: PCP Physician Assistant; Visit Provider Dermatology | DX: L82.1 Other seborrheic keratosis (principal); D22.5 Melanocytic nevi of trunk; L57.0 Actinic keratosis; D36.12 Benign neoplasm of peripheral nerves and autonomic nervous system, upper limb, including shoulder; Z85.828 Personal history of other malignant neoplasm of skin | CPT/HCPCS: 17000; 99203 ==

== ENCOUNTER 2024-02-16 13:50 | Outpatient (CLI) | payer MEDICARE, OTHER, SELFPAY ==
--- NOTE | 2024-02-16 13:55 | XR_ITS ---
WS: [id number] SCREENING DEXA SCAN [facility] CLINICAL INFORMATION: POSTMENOPAUSAL COMPARISON: 2019 FINDINGS: The L1-L4 bone mineral density measures 1.118 g/cm2. This corresponds to a T score score of -0.5 and Z score of 1.0. Left femoral neck bone mineral density measures 0.783 g/cm2. This corresponds to a T score of -1.8 an d Z score of -0.1. Right femoral neck bone mineral density measures 0.739 g/cm2. This corresponds to a T score -2.1of an d Z score of -0.4. Mean femoral neck bone mineral density measures 0.761 g/cm2. This corresponds to a T score of -2.0 an d Z score of -0.2. IMPRESSION: Normal bone mineralization lumbar spine. Osteopenia femoral necks Patient's FRAX calculated 10 year probability for major osteoporotic fracture is 24.0% and osteoporot ic hip fracture is 7.1%. Bone marrow density lumbar spine increased 2.0%. Bone mineral density femoral necks decreased -3.9%
== END 2024-02-16 13:51 | disposition home or self-care (01) ==
LOC: RAD 13:50
PROVIDERS: PCP Physician Assistant; Visit Provider Physician Assistant
DX: Z13.820 Encounter for screening for osteoporosis (principal); Z78.0 Asymptomatic menopausal state
CPT/HCPCS: 77080

== ENCOUNTER 2024-03-11 19:28 | Emergency (ER) | payer MEDICARE, OTHER, SELFPAY ==
[2024-03-11 19:35] VITALS: BP 126/76; PULSE 86; RESP 18; TEMP 37.7; O2SAT 90; BMI 25.7
--- NOTE | 2024-03-11 19:57 | CTR_ITS ---
PROCEDURE INFORMATION: Exam: CT Head Without Contrast Exam date and time: 03/11/2024 8:20 PM Age: 78 years old Clinical indication: Pain; Headache; Patient HX: C/O BACH with nausea; Additional info: Bach/nausea TECHNIQUE: Imaging protocol: Computed tomography of the head without contrast. Radiation optimization: All CT scans at this facility use at least one of these dose optimization techniques: automated exposure control; mA and/or kV adjustment per patient size (includes targeted exams where dose is matched to clinical indication); or iterative reconstruction. COMPARISON: CT head wo con* [id number] 11/19/2022 7:32 PM RADIATION DOSE METRICS: Total DLP (mGy-cm): 1015.23 FINDINGS: Brain: There is [id number] cerebral atrophy. There are mild deep white matter microangiopathic ischemic changes. No acute hemorrhage is identified. No mass or mass effect is identified. Cerebral ventricles: The ventricles are prominent secondary to atrophy. Paranasal sinuses: The paranasal sinuses are clear. Mastoid air cells: The mastoid air cells are clear. Bones: Unremarkable. No acute fracture. Soft tissues: The soft tissues are within normal limits. CT/CT head wo con* [id number] IMPRESSION: 1. No acute intracranial pathology. 2. Senescent changes.
--- NOTE | 2024-03-11 19:59 | ED_ITS ---
Documented by User: CHRISTELLE Conner 03/11/24 22:44 HPI - Allergic Reaction 2 General: Chief complaint: Allergic Reaction Stated complaint: allergic reaction/vomiting Time Seen by Provider: 03/11/24 19:45 Source: patient Mode of arrival: ambulatory Limitations: no limitations History of Present Illness: HPI narrative: Patient is a 78-year-old female who presents to the emergency department complaining of allergic reaction to antibiotic. Patient notes for the past few months she has been dealing with an E. coli urinary tract infection that has not been responsive to any antibiotics. She does not see a urologist, but states that she is currently attempting to try to see 1. She is noting some associated nausea and just not feeling right. She also states she has been having a headache and heart palpitations. She has been seen a few times recently for atrial fibrillation, not currently anticoagulated but does take aspirin. She states that she is unsure of what antibiotic she last took that caused her allergic reaction, but states that it caused a rash to her bilateral lower extremities. She denies any breathing difficulties, tongue or throat swelling, angioedema, or other systemic signs of allergic reaction. Additionally she is not reporting any chest pain or syncope. MD complaint: allergic reaction Onset (ago): hour(s) Exposure: medication Associated symptoms: Reports nausea; Deny abdominal pain, dizziness or vomiting Severity: mild Treatment prior to arrival: none Previous Allergic Reaction History: none Review of Systems 2 General: Reports: 10 or more systems reviewed and unremarkable except in HPI and below Const: Reports: malaise; Denies: fever(s), chills or fatigue Eyes: Denies: change in vision ENMT: Denies: throat pain, uvular edema, odynophagia or swelling of lips/tongue Card: Reports: palpitations; Denies: chest pain, edema, lightheadedness or syncope Resp: Denies: dyspnea, productive cough or wheezing GI: Reports: nausea; Denies: abdominal pain, vomiting, diarrhea or constipation : Reports: urinary frequency; Denies: flank pain, dysuria or hematuria Musc: Denies: neck pain, back pain or joint pain Skin/Breast: Reports: rash Neuro: Reports: headache(s); Denies: numbness in extremities, weakness in extremities or dizziness PFS ED 2 PFSH: Medical History Heart palpitations History of nonmelanoma skin cancer Accelerated essential hypertension MCL sprain of right knee Surgical History H/O: hysterectomy History of left knee replacement Family History Other Hypertension Stroke Social History Smoking and tobacco/nicotine status: never used tobacco/nicotine Alcohol intake: never Substance/Drug Use: never Physical Exam 2 Const: COMMON NORMALS: no acute distress, patient oriented x3 and no limitations GENERAL APPEARANCE: cooperative, comfortable and well developed ORIENTATION/CONSCIOUSNESS: Yes awake, Yes oriented to person, Yes oriented to place and Yes oriented to time HENMT: COMMON NORMALS: normocephalic, atraumatic and hearing grossly normal bilaterally HEAD & SCALP: normocephalic and atraumatic THROAT: no uvular edema Eye: COMMON NORMALS: Equal, round and reactive pupils present, EOMs intact bilaterally and conjunctivae normal CONJUNCTIVA: Yes conjunctivae normal P UPIL: Yes Equal, round and reactive pupils present Neck/C-Spine: COMMON NORMALS: full ROM, supple and no JVD Resp: COMMON NORMALS: normal respiratory effort, No retractions, No use of accessory muscles and clear to auscultation bilaterally AUSCULTATION: clear to auscultation bilaterally Cardio: COMMON NORMALS: no JVD, regular rate, No clicks present (Cardio), No murmurs present (Cardio) and No rub (Cardio) RATE: regular rate RHYTHM: a bnormal rhythm irregularly irregular GI: COMMON NORMALS: Normal to inspection, nondistended, normoactive bowel sounds present, Soft to palpation and non-tender AUSCULTATION: Yes normoactive bowel sounds PALPATION: Yes Soft to palpation RECTAL EXAM: d eferred : COMMON NORMALS: Yes no CVA tenderness BLADDER/KIDNEY EXAM: Yes no CVA tenderness Back/Pelvis: COMMON NORMALS: no CVA tenderness, thoracic and lumbar spine normal to inspection, no thoracic nor lumbar tenderness and thoraco-lumbar ROM normal Extremity: COMMON NORMALS: normal to inspection, full ROM and capillary refill normal Neuro: COMMON NORMALS: patient oriented x3, CN's II-XII intact bilaterally, moves all extremities, no focal motor deficits and no sensory deficits noted SENSORIUM/ORIENTATION: Yes oriented to person, Yes oriented to place and Yes oriented to time Psych: COMMON NORMALS: mental status grossly normal and Normal thought process present THOUGHT PROCESS: Normal thought process present Skin: COMMON NORMALS: no rashes or lesions noted GENERAL SKIN EXAM: no rashes or lesions noted Course 2 Vital Signs: Vital signs: Vital Signs Temperature 99.8 F H 03/11/24 19:35 Pulse Rate 91 03/11/24 22:00 Respiratory Rate 20 H 03/11/24 22:00 Blood Pressure 156/86 03/11/24 22:00 Pulse Oximetry 93 03/11/24 22:00 Oxygen Delivery Me thod Room Air 03/11/24 19:35 MDM - Allergic Reaction Medical Decision Making Patient presented for recurrent UTI symptoms as well as a rash from current antibiotic she is on. She was noting headache and general nausea. Vitals unremarkable on arrival, condition stable throughout ED course. Urinalysis did reveal signs of retained urinary tract infection, will switch antibiotic and refer to urology for further evaluation and management. Rest of her lab workup unremarkable, head CT also unremarkable. EKG normal sinus rhythm with no acute ST segment changes. Patient's headache improved after being given a liter of fluids, I do believe she is clinically dehydrated. Informed her to increase her water intake. Reasons to return thoroughly discussed, patient endorses understanding and all other questions and concerns addressed at this time. Lab Data I reviewed the patient's lab results. 03/11/24 20:10 03/11/24 21:[address] 03/11/24 19:57 IMPRESSION: 1. No acute intracranial pathology. 2. Senescent changes. Laboratory Results WBC 10.78 10^3/uL (3.29-11.43) 03/11/24 20:10 RBC 4.71 10^6/uL (3.85-5.65) 03/11/24 20:10 Hgb 13.70 g/dL (11.27-16.99) 03/11/24 20:10 Hct 40.9 % (36-47) 03/11/24 20:10 MCV 86.8 fl (85-98) 03/11/24 20:10 MCH 29.1 pg (27-33) 03/11/24 20:10 MCHC 33.5 g/dL (30-55) 03/11/24 20:10 RDW 13.6 % (12.1-15.1) 03/11/24 20:10 Plt Count 156 10^3/cmm (157-399) L 03/11/24 20:10 MPV 11.0 fL (7.4-10.4) H 03/11/24 20:10 Neut % (Auto) 89.8 % 03/11/24 20:10 Lymph % (Auto) 4.5 % 03/11/24 20:10 [place] % (Auto) 3.1 % 03/11/24 20:10 Eos % (Auto) 1.6 % 03/11/24 20:10 Baso % (Auto) 0.6 % 03/11/24 20:10 Neut # (Auto) 9.69 10^3/uL (1.8-7.7) H 03/11/24 20:10 Lymph # (Auto) 0.5 10^3/uL (0.8-4.8) L 03/11/24 20:10 [place] # (Auto) 0.3 10^3/uL (0.2-0.9) 03/11/24 20:10 Eos # (Auto) 0.2 10^3/uL (0.0-0.8) 03/11/24 20:10 Baso # (Auto) 0.1 10^3/uL (0.0-0.1) 03/11/24 20:10 Nucleated RBC % (auto) 0 % 03/11/24 20:10 Nucleated RBCs # 0.0 /100WBC 03/11/24 20:10 Sodium 135 mmol/L (136-145) L 03/11/24 21:43 Potassium 3.6 mmol/L (3.5-5.1) 03/11/24 21:43 Chloride 104 mmol/L (98-107) 03/11/24 21:43 Carbon Dioxide 19 mmol/L (22-29) L 03/11/24 21:43 Anion Gap 15.6 (5-19) 03/11/24 21:43 BUN 12 mg/dL (8-23) 03/11/24 21:43 Creatinine 0.5 mg/dL (0.5-0.9) 03/11/24 21:43 GFR Calculation Not Reportable 03/11/24 21:43 Glucose 129 mg/dL (65-115) H 03/11/24 21:43 Calculated Osmolality 281 mOsm/kg (285-295) L 03/11/24 21:43 Calcium 8.7 mg/dL (8.5-10.5) 03/11/24 21:43 Total Bilirubin 0.6 mg/dL (0.15-1.2) 03/11/24 21:43 AST 19 U/L (0-32) 03/11/24 21:43 ALT 12 U/L (0-33) 03/11/24 21:43 Alkaline Phosphatase 72 U/L (35-105) 03/11/24 21:43 Total Protein 6.3 g/dL (6.6-8.7) L 03/11/24 21:43 Albumin 3.4 g/dL (3.5-5.2) L 03/11/24 21:43 Globulin 2.9 g/dL (1.3-4.6) 03/11/24 21:43 Urine Color Yellow (Yellow) 03/11/24 21:06 Urine Appearance Clear (CLEAR) 03/11/24 21:06 Urine pH 7 (5-7) 03/11/24 21:06 Ur Specific Freeman 1.005 (1.005-1.030) 03/11/24 21:06 Urine Protein Neg (Negative) 03/11/24 21:06 Urine Glucose (UA) Norm (Normal) 03/11/24 21:06 Urine Ketones 2+ (Negative) H 03/11/24 21:06 Urine Blood 2+ (Negative) H 03/11/24 21:06 Urine Nitrate Negative (Negative) 03/11/24 21:06 Urine Bilirubin Neg (Negative) 03/11/24 21:06 Urine Urobilinogen Neg mg/dL (Negative) 03/11/24 21:06 Ur Leukocyte Esterase Trace (Negative) H 03/11/24 21:06 Urine RBC 0-4 /hpf (0-2) H 03/11/24 21:06 Urine WBC 0-4 /hpf (0-5) H 03/11/24 21:06 Ur Squamous Epith Cells 5-10 /hpf (0-5) H 03/11/24 21:06 Amorphous Sediment Not Reportable 03/11/24 21:06 Urine Bacteria Trace /hpf (NONE) 03/11/24 21:06 Urine Mucus 1+ /hpf 03/11/24 21:06 All radiology interpretation(s) finalized by discharge Discharge Plan Discharge Patient Disposition: Home Clinical Impression: Acute dehydration Urinary tract infection Qualifiers: Urinary tract infection type: acute cystitis Hematuria presence: without hematuria Qualified Code(s): N30.00 - Acute cystitis without hematuria Condition: Stable Prescriptions: New amoxicillin-pot clavulanate 875-125 mg tablet 1 tab PO BID 10 Days Qty: 20 0RF Discontinued amoxicillin 500 mg capsule 500 mg PO BID No Action (DME) Custom Molded Orthotics See Rx Instructions .Route .MEDSUPPLY Qty: 1 0RF Rx Instructions: As directed (DME) fast form cast to the right See Rx Instructions .Route .MEDSUPPLY Qty: 1 0RF Rx Instructions: As directed (DME) Cock up splint See Rx Instructions .Route .MEDSUPPLY Qty: 1 0RF Rx Instructions: As directed multivitamin Tablet 1 tab PO QAM hydrocodone-acetaminophen 5-325 mg tablet 1 tab PO TID PRN (Reason: Pain) losartan 100 mg tablet 100 mg PO QAM cholecalciferol (vitamin D3) [Vitamin D3] 10 mcg (400 unit) Capsule 10 mcg PO DAILY aspirin 325 mg Tablet 325 mg PO QPM Probiotic Blend 2 billion cell-50 mg Capsule 1 cap PO DAILY diltiazem HCl 120 mg capsule,extended release 24hr 120 mg PO BEDTIME Cardizem 60 mg tablet 60 mg PO Q12H Qty: 60 0RF Discharge Orders: Discharge ED (Routine); Ordered 03/11/24 Ordered By: Ellis Lemus Referrals: Fernanda Peralta PA [Primary Care Provider] - Discharge Diet: Advance as tolerated Discharge Activity: Resume usual activity Patient Instructions: Dehydration (ED), Urinary Tract Infection in Women (ED) Activity Restrictions/Additional Instructions: Increase your fluid intake. Take Augmentin as prescribed. Stop current antibiotic. Follow-up with urology as discussed. Return with any new or concerning symptoms you may have. Continue other medications. Coding Level of Care Code ED Pharmacy Technician Inpatient for Chg Aided Documented by User: Pascual Zhang DO 03/12/24 07:09 HPI - Allergic Reaction 2 General: Chief complaint: Allergic Reaction Stated complaint: allergic reaction/vomiting Time Seen by Provider: 03/11/24 19:45 PFSH ED 2 PFSH: Medical History Heart palpitations History of nonmelanoma skin cancer Accelerated essential hypertension MCL sprain of right knee Surgical History H/O: hysterectomy History of left knee replacement Family History Other Hypertension Stroke Social History Smoking and tobacco/nicotine status: never used tobacco/nicotine Alcohol intake: never Substance/Drug Use: never Course 2 Vital Signs: Vital signs: Vital Signs Temperature 99.8 F H 03/11/24 19:35 Pulse Rate 91 03/11/24 22:00 Respiratory Rate 20 H 03/11/24 22:00 Blood Pressure 156/86 03/11/24 22:00 Pulse Oximetry 93 03/11/24 22:00 Oxygen Delivery Me thod Room Air 03/11/24 19:35 MDM - Allergic Reaction Medical Decision Making Patient presented for recurrent UTI symptoms as well as a rash from current antibiotic she is on. She was noting headache and general nausea. Vitals unremarkable on arrival, condition stable throughout ED course. Urinalysis did reveal signs of retained urinary tract infection, will switch antibiotic and refer to urology for further evaluation and management. Rest of her lab workup unremarkable, head CT also unremarkable. EKG normal sinus rhythm with no acute ST segment changes. Patient's headache improved after being given a liter of fluids, I do believe she is clinically dehydrated. Informed her to increase her water intake. Reasons to return thoroughly discussed, patient endorses understanding and all other questions and concerns addressed at this time. Chart reviewed Lab Data 03/11/24 20:10 03/11/24 21:[address] 03/11/24 19:57 IMPRESSION: 1. No acute intracranial pathology. 2. Senescent changes. Laboratory Results WBC 10.78 10^3/uL (3.29-11.43) 03/11/24 20:10 RBC 4.71 10^6/uL (3.85-5.65) 03/11/24 20:10 Hgb 13.70 g/dL (11.27-16.99) 03/11/24 20:10 Hct 40.9 % (36-47) 03/11/24 20:10 MCV 86.8 fl (85-98) 03/11/24 20:10 MCH 29.1 pg (27-33) 03/11/24 20:10 MCHC 33.5 g/dL (30-55) 03/11/24 20:10 RDW 13.6 % (12.1-15.1) 03/11/24 20:10 Plt Count 156 10^3/cmm (157-399) L 03/11/24 20:10 MPV 11.0 fL (7.4-10.4) H 03/11/24 20:10 Neut % (Auto) 89.8 % 03/11/24 20:10 Lymph % (Auto) 4.5 % 03/11/24 20:10 [place] % (Auto) 3.1 % 03/11/24 20:10 Eos % (Auto) 1.6 % 03/11/24 20:10 Baso % (Auto) 0.6 % 03/11/24 20:10 Neut # (Auto) 9.69 10^3/uL (1.8-7.7) H 03/11/24 20:10 Lymph # (Auto) 0.5 10^3/uL (0.8-4.8) L 03/11/24 20:10 [place] # (Auto) 0.3 10^3/uL (0.2-0.9) 03/11/24 20:10 Eos # (Auto) 0.2 10^3/uL (0.0-0.8) 03/11/24 20:10 Baso # (Auto) 0.1 10^3/uL (0.0-0.1) 03/11/24 20:10 Nucleated RBC % (auto) 0 % 03/11/24 20:10 Nucleated RBCs # 0.0 /100WBC 03/11/24 20:10 Sodium 135 mmol/L (136-145) L 03/11/24 21:43 Potassium 3.6 mmol/L (3.5-5.1) 03/11/24 21:43 Chloride 104 mmol/L (98-107) 03/11/24 21:43 Carbon Dioxide 19 mmol/L (22-29) L 03/11/24 21:43 Anion Gap 15.6 (5-19) 03/11/24 21:43 BUN 12 mg/dL (8-23) 03/11/24 21:43 Creatinine 0.5 mg/dL (0.5-0.9) 03/11/24 21:43 GFR Calculation Not Reportable 03/11/24 21:43 Glucose 129 mg/dL (65-115) H 03/11/24 21:43 Calculated Osmolality 281 mOsm/kg (285-295) L 03/11/24 21:43 Calcium 8.7 mg/dL (8.5-10.5) 03/11/24 21:43 Total Bilirubin 0.6 mg/dL (0.15-1.2) 03/11/24 21:43 AST 19 U/L (0-32) 03/11/24 21:43 ALT 12 U/L (0-33) 03/11/24 21:43 Alkaline Phosphatase 72 U/L (35-105) 03/11/24 21:43 Total Protein 6.3 g/dL (6.6-8.7) L 03/11/24 21:43 Albumin 3.4 g/dL (3.5-5.2) L 03/11/24 21:43 Globulin 2.9 g/dL (1.3-4.6) 03/11/24 21:43 Urine Color Yellow (Yellow) 03/11/24 21:06 Urine Appearance Clear (CLEAR) 03/11/24 21:06 Urine pH 7 (5-7) 03/11/24 21:06 Ur Specific Freeman 1.005 (1.005-1.030) 03/11/24 21:06 Urine Protein Neg (Negative) 03/11/24 21:06 Urine Glucose (UA) Norm (Normal) 03/11/24 21:06 Urine Ketones 2+ (Negative) H 03/11/24 21:06 Urine Blood 2+ (Negative) H 03/11/24 21:06 Urine Nitrate Negative (Negative) 03/11/24 21:06 Urine Bilirubin Neg (Negative) 03/11/24 21:06 Urine Urobilinogen Neg mg/dL (Negative) 03/11/24 21:06 Ur Leukocyte Esterase Trace (Negative) H 03/11/24 21:06 Urine RBC 0-4 /hpf (0-2) H 03/11/24 21:06 Urine WBC 0-4 /hpf (0-5) H 03/11/24 21:06 Ur Squamous Epith Cells 5-10 /hpf (0-5) H 03/11/24 21:06 Amorphous Sediment Not Reportable 03/11/24 21:06 Urine Bacteria Trace /hpf (NONE) 03/11/24 21:06 Urine Mucus 1+ /hpf 03/11/24 21:06 Discharge Plan Discharge Patient Disposition: Home Clinical Impression: Acute dehydration Urinary tract infection Qualifiers: Urinary tract infection type: acute cystitis Hematuria presence: without hematuria Qualified Code(s): N30.00 - Acute cystitis without hematuria Condition: Stable Prescriptions: New amoxicillin-pot clavulanate 875-125 mg tablet 1 tab PO BID 10 Days Qty: 20 0RF Discontinued amoxicillin 500 mg capsule 500 mg PO BID No Action (DME) Custom Molded Orthotics See Rx Instructions .Route .MEDSUPPLY Qty: 1 0RF Rx Instructions: As directed (DME) fast form cast to the right See Rx Instructions .Route .MEDSUPPLY Qty: 1 0RF Rx Instructions: As directed (DME) Cock up splint See Rx Instructions .Route .MEDSUPPLY Qty: 1 0RF Rx Instructions: As directed multivitamin Tablet 1 tab PO QAM hydrocodone-acetaminophen 5-325 mg tablet 1 tab PO TID PRN (Reason: Pain) losartan 100 mg tablet 100 mg PO QAM cholecalciferol (vitamin D3) [Vitamin D3] 10 mcg (400 unit) Capsule 10 mcg PO DAILY aspirin 325 mg Tablet 325 mg PO QPM Probiotic Blend 2 billion cell-50 mg Capsule 1 cap PO DAILY diltiazem HCl 120 mg capsule,extended release 24hr 120 mg PO BEDTIME Cardizem 60 mg tablet 60 mg PO Q12H Qty: 60 0RF Discharge Orders: Discharge ED (Routine); Ordered 03/11/24 Ordered By: Ellis Lemus Referrals: Fernanda Peralta PA [Primary Care Provider] - Discharge Diet: Advance as tolerated Discharge Activity: Resume usual activity Patient Instructions: Dehydration (ED), Urinary Tract Infection in Women (ED) Activity Restrictions/Additional Instructions: Increase your fluid intake. Take Augmentin as prescribed. Stop current antibiotic. Follow-up with urology as discussed. Return with any new or concerning symptoms you may have. Continue other medications. Coding Level of Care Code ED Pharmacy Technician Inpatient for Simran Nicholson
[2024-03-11] MEDS: sodium chloride 0.9% 1,000 ML 999 ML IV (20:08)
[2024-03-11] MEDS: metoclopramide 5 mg/mL SDV 2 mL 10 MG IVP (20:08)
--- NOTE | 2024-03-11 20:15 | ECG_ITS ---
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 Measurements Intervals [place] Rate: 92 P: 52 IA: 209 QRS: 6 QRSD: 90 T: 47 QT: 325 QTc: 403 Interpretive Statements SINUS RHYTHM POSSIBLE LEFT ATRIAL ENLARGEMENT [-0.1mV P-WAVE IN V1/V2] ANTEROSEPTAL MYOCARDIAL INFARCTION , OF INDETERMINATE AGE [40+ ms Q WAVE IN V1-V4] Compared to ECG 10/08/2023 21:53:58 Sinus tachycardia no longer present Incomplete right bundle-branch block no longer present Myocardial infarct finding still present Electronically Signed On 03-14-2024 12:57:35 CDT by Iraj Tamez M.D. [id number]
[2024-03-11 20:19] LABS: Basophils # 0.1 10^3/uL (0.0-0.1); Basophils % 0.6 %; Eosinophils # 0.2 10^3/uL (0.0-0.8); Eosinophils % 1.6 %; Hematocrit 40.9 % (36-47); Lymphocytes # 0.5 10^3/uL (0.8-4.8); Lymphocytes % 4.5 %; Mean Corpuscular HGB Conc 33.5 g/dL (30-55); Mean Corpuscular Hemoglobin 29.1 pg (27-33); Mean Corpuscular Volume 86.8 fl (85-98); Monocytes # 0.3 10^3/uL (0.2-0.9); Monocytes % 3.1 %; Neutrophils # 9.69 10^3/uL (1.8-7.7); Neutrophils % 89.8 %; Nucleated Red Blood Cells % 0 %; Platelet Count 156 10^3/cmm (157-399); Red Blood Count 4.71 10^6/uL (3.85-5.65); Red Cell Distribution Width 13.6 % (12.1-15.1); White Blood Count 10.78 10^3/uL (3.29-11.43)
[2024-03-11 20:45] VITALS: BP 143/72; PULSE 96; RESP 15; O2SAT 93
[2024-03-11 21:00] VITALS: BP 140/75; PULSE 94; RESP 18; O2SAT 93
[2024-03-11] MEDS: morphine 4 mg/mL SDV 1 mL IVP (21:17)
[2024-03-11 21:24] LABS: Add Urine Microscopic? YES; Bilirubin Urine Neg (Negative); Blood Urine 2+ (Negative); Glucose Urine UA Norm (Normal); Ketones Urine 2+ (Negative); Leukocyte Esterase Urine Trace (Negative); Nitrate Urine Negative (Negative); Protein Urine Neg (Negative); Specific Gravity, Urine 1.005 (1.005-1.030); Urine Appearance Clear (CLEAR); Urine Color Yellow (Yellow); Urobilinogen Urine Neg (Negative); pH Urine 7 (5-7)
[2024-03-11 21:25] LABS: Bacteria Urine TRACE /hpf; Mucus Urine 1+ /hpf; RBC Urine 0-4 /hpf (0-2); WBC Urine 0-4 /hpf (0-5)
[2024-03-11 21:30] VITALS: BP 150/80; PULSE 98; RESP 18; O2SAT 96
[2024-03-11 22:00] VITALS: BP 156/86; PULSE 91; RESP 20; O2SAT 93
[2024-03-11 22:10] LABS: Alanine Aminotransferase 12 U/L (0-33); Albumin Level 3.4 g/dL (3.5-5.2); Alkaline Phosphatase 72 U/L (35-105); Aspartate Amino Transferase 19 U/L (0-32); Blood Urea Nitrogen 12 mg/dL (8-23); Calcium 8.7 mg/dL (8.5-10.5); Carbon Dioxide 19 mmol/L (22-29); Chloride 104 mmol/L (98-107); Globulin 2.9 g/dL (1.3-4.6); Glucose 129 mg/dL (65-115); Osmolality Calculated 281 mOsm/kg (285-295); Sodium 135 mmol/L (136-145); Total Bilirubin 0.6 mg/dL (0.15-1.2); Total Protein 6.3 g/dL (6.6-8.7)
[2024-03-11 22:14] LABS: Anion Gap 15.6 (5-19); Potassium 3.6 mmol/L (3.5-5.1)
[2024-03-11] MEDS: amoxicillin-clav 875-125 mg Tablet 1 TAB PO (22:41)
--- NOTE | 2024-03-14 07:13 | DCPLANNER ---
faxed urology referral to [facility]
== END 2024-03-11 22:45 | disposition home or self-care (01) ==
PROVIDERS: Emergency Provider Physician Assistant; PCP Physician Assistant
DX: N30.00 Acute cystitis without hematuria (principal); E86.0 Dehydration
CPT/HCPCS: 36415; 70450; 80053; 81001; 85025; 93005; 96361; 96374; 96375; 99285; J2270; J2765; J7030

== ENCOUNTER 2024-04-07 10:58 | Outpatient (CLI) | payer MEDICARE, OTHER, SELFPAY ==
--- NOTE | 2024-04-07 11:05 | CT_ITS ---
WS: [id number] CT ABDOMEN AND PELVIS WITH AND WITHOUT CONTRAST HISTORY: RECURRENT UTI/FAMILY HX OF KIDNEY STONES/CANCER TECHNIQUE: Unenhanced 5 mm axial imaging first performed through the abdomen. Post contrast imaging t hrough the abdomen and pelvis. Oral contrast has not been provided. Sagittal and coronal reformats a re submitted. All CT scans at [facility] use at least one of these dose optimization techniqu es: automated exposure control; mA and/or kV adjustment per patient size (includes targeted exams whe re dose is matched to clinical indication); or iterative reconstruction. CONTRAST: Omnipaque 350; 95 mL IV. DLP: 925.53 mGy.cm COMPARISON: 05/05/2022 Lung bases are clear. Bilateral breast implants. Heart is normal size. Small hiatal hernia. RIGHT kidney: No renal obstruction. No calcification. No solid mass. Cortical cyst mid kidney 0.7 cm. There is an extrarenal pelvis. No filling defects within the visualized ureter. Only this proximal u reter is opacified without excreted contrast. LEFT kidney: Normal size kidney. No renal calcification. Normal enhancement. Small extrarenal pelvis. No uroepithelial filling defects. There are a few scattered too small to characterize hypodensities within the liver. These were presen t on the prior study without increase in size. Normal portal vein. No duct dilatation. Normal gallbla dder. Normal spleen. Normal pancreas. No adrenal mass. Atherosclerosis aorta. Mesenteric arteries are widely patent. Splenic artery calcification. Stomach is nondistended. No small bowel obstruction. Diffuse constipation. Appendix is not visualized . Very few diverticula in the distal colon. No ascites. No adenopathy. Mild increase in the lumbar lordosis. CT/CT abdomen pelvis wo/w [id number] IMPRESSION: 1. No renal obstruction or solid mass. 2. No renal calcifications. 3. No uroepithelial lesions noted in the renal pelves and proximal ureters. Di stal ureters are not opacified with contrast. 4. Small hypodensities within the liver are stable consistent with cysts. 5. Mild diffuse constipation. Minimal diverticular disease in the distal colon .
== END 2024-04-07 10:59 | disposition home or self-care (01) ==
PROVIDERS: PCP Physician Assistant; Visit Provider Nurse Practitioner Family
DX: N39.0 Urinary tract infection, site not specified (principal); Z84.1 Family history of disorders of kidney and ureter; Z80.51 Family history of malignant neoplasm of kidney; K44.9 Diaphragmatic hernia without obstruction or gangrene; N28.1 Cyst of kidney, acquired; K76.89 Other specified diseases of liver; K57.30 Diverticulosis of large intestine without perforation or abscess without bleeding; M40.56 Lordosis, unspecified, lumbar region
CPT/HCPCS: 74178; Q9967

== ENCOUNTER 2024-11-07 13:27 | Outpatient (CLI) | payer MEDICARE, OTHER, SELFPAY | END 2024-11-07 13:28 | disposition home or self-care (01) | LOC: SLEEP 13:29 | PROVIDERS: PCP Physician Assistant; Visit Provider Physician Assistant | DX: G47.33 Obstructive sleep apnea (adult) (pediatric) (principal) | CPT/HCPCS: 94762 ==

== ENCOUNTER → 2024-12-08 11:31 | Outpatient (BNVA) | payer MEDICARE, OTHER, SELFPAY | PROVIDERS: PCP Physician Assistant; Visit Provider Nurse Practitioner Family | DX: L82.1 Other seborrheic keratosis (principal); D22.5 Melanocytic nevi of trunk; D36.12 Benign neoplasm of peripheral nerves and autonomic nervous system, upper limb, including shoulder; L81.4 Other melanin hyperpigmentation; Z08 Encounter for follow-up examination after completed treatment for malignant neoplasm | CPT/HCPCS: 17000; 69100; 99213 ==

== ENCOUNTER 2025-02-21 07:30 | Outpatient (CLI) | payer MEDICARE, OTHER, SELFPAY ==
--- NOTE | 2025-02-21 07:37 | CT_ITS ---
WS: [id number] CT NECK WITH CONTRAST HISTORY: SIALOADENITIS TECHNIQUE: Contiguous 2 mm axial images are performed through the neck with intravenous contrast. Sagittal and coronal reformats are also submitted. All CT scans at [facility] use at least one of these dose optimization techniques: automated exposure control; mA and/or kV adjustment per patient size (includes targeted exams where dose is matched to clinical indication); or iterative reconstruction. CONTRAST: CONTRAST: Omnipaque 350; 100 mL IV. DLP: 165.25 mGy.cm COMPARISON: 03/11/2017 Nasopharynx, oropharynx, hypopharynx and larynx are unremarkable. No soft tissue masses or abnormal enhancement. There is beam hardening artifacts from the patient's dental amalgam obscuring some portions of the skull base. There is also a vagal nerve stimulator on the RIGHT also producing some artifact. Torus tubarius and fossa of Rosenmuller and parapharyngeal fat are normal. No significant lymphadenopathy is identified. Very tiny bilateral thyroid nodules. Parotid glands are intact. Atrophied or absent LEFT submandibular gland. No parotid duct or submandibular duct dilatation or calcification. No parotiditis. Very mild cervical spondylosis. Visualized portions of the skull base demonstrate no abnormalities. Orbits and globes are within normal limits. No soft tissue masses. Visualized sinuses are negative. Sclerotic: Last LEFT mastoid air cells, similar to the prior study. Abnormal configuration of the LEFT middle ear ossicles may be from prior surgery. Lung apices are clear. CT/CT neck w con* [id number] IMPRESSION: 1. No tongue base or laryngeal mass identified. Normal enhancement. 2. No cervical chain lymphadenopathy. 3. Atrophic sclerotic LEFT mastoid air cells probably from prior surgery. 4. Absent or atrophied LEFT submandibular gland. 5. No significant soft tissue edema along the RIGHT side of the face.
[2025-02-21 08:27] LABS: Blood Urea Nitrogen 13 mg/dL (8-23)
[2025-02-21] MEDS: iohexol 350 mg/mL 500 mL Btl (per mL) IV (08:28)
== END 2025-02-21 07:31 | disposition home or self-care (01) ==
PROVIDERS: Radiology Neuroradiology; PCP Physician Assistant; Visit Provider Specialist
DX: K11.20 Sialoadenitis, unspecified (principal); H74.8X2 Other specified disorders of left middle ear and mastoid; R93.89 Abnormal findings on diagnostic imaging of other specified body structures; Z96.89 Presence of other specified functional implants; M47.892 Other spondylosis, cervical region
CPT/HCPCS: 70491; 82565; 84520

== ENCOUNTER → 2025-03-14 15:19 | Outpatient (BNVA) | payer MEDICARE, OTHER, SELFPAY | PROVIDERS: PCP Physician Assistant; Visit Provider Nurse Practitioner Family | DX: L82.1 Other seborrheic keratosis (principal); D22.5 Melanocytic nevi of trunk; D36.12 Benign neoplasm of peripheral nerves and autonomic nervous system, upper limb, including shoulder; L81.4 Other melanin hyperpigmentation; Z08 Encounter for follow-up examination after completed treatment for malignant neoplasm; Z85.828 Personal history of other malignant neoplasm of skin | CPT/HCPCS: 99213 ==

== ENCOUNTER 2025-04-30 11:40 | Emergency (ER) | payer MEDICARE, OTHER, SELFPAY ==
--- OUTSIDE RECORDS SUMMARY | 2025-01-12 06:20 | XMS_ITS ---
Author Organization [facility] Contact At Once! Address [address] [place] [phone] Care Team Providers Care Dust Collector Attendant Name Role Phone Fernanda Peralta PA-C Primary Care Provider Marshall López MD, Thanh Tejada [phone] Christian Naranjo MD Unavailable REASON FOR VISIT Prescription visit Encounters Encounter Location Date Provider Diagnosis [facility], [address] [id number] 01/12/2025 Thanh López Plan Of Treatment No Information Progress Notes * Kalli MORENO DDOB:[birth year] (79 yo F)Acc No.[id number]:01/12/2025 Patient: Kalli MARIE Provider: Aldiar López :1945 A ge:79 Y S ex:Female Date:01/12/2025 Address:[address] [place], [place] [id number] Pcp:Fernanda Peralta PA-C Subjective: * Chief Complaints: * 1 . Prescription visit. * Medical History: Objective: Therapeutic Interventions: Assessment: Plan: * Treatment: * Images: * Electronic signature of Huy López MD on 04/30/2025 at 11:48 AM CDT Sign off status: Pending * Provider: Aldair López Date: 01/12/2025 Generated for Printi ng/Faxing/eTransmitting on: 0 04/30/2025 11:48 AM CDT
--- OUTSIDE RECORDS SUMMARY | 2025-04-25 05:14 | XMS_ITS ---
Author Organization [facility] Address [address] [place] [address] Care Team Providers Care Financial Institution President Name Role Phone Fernanda Bagley Primary Care Provider Anais Jimenez Unavailable [phone] Ronni Krishnan [phone] REASON FOR VISIT CORIN mccoy DC call Encounters Encounter Location Date Provider Diagnosis [facility] [address] [place] [address], [place] [address] 04/25/2025 Ronni Krishnan Plan Of Treatment Next Appt Details Provider Name:Ronni Krishnan , 05/29/2025 02:30:00 PM, [address] [place] [address], [place], [address], Provider Name:Ronni Krishnan , 06/16/2025 11:00:00 AM, [address] [place] [address], [place], [address], Provider Name:Lona Cornelius, 06/27/2025 10:00:00 AM, [address] [facility] [place], [address], Provider Name:Ronni Krishnan , 10/09/2025 11:30:00 AM, [address] [place] [address], [place], [address], Provider Name:Ronni Krishnan , 10/17/2025 10:00:00 AM, [address] [place] [address], [place], [address], Progress Notes * Kalli MORENO DDOB:[birth year] (79 yo F)Acc No.[id number]:04/25/2025 Patient: Kalli MRAIE :1945 A ge:79 Y S ex:Female Address:[facility] [address], [place], [address] Subjective: * Chief Complaints: * S P watchman DC call * Medical History: * Surgical History: b alondra cell carcinoma removal 2001; Left Knee Replacement 2014Right Knee Replacement 2019Left Ear Surgery 1973Bi Lateral Hysterectomy 1986inspire therapy ladder 05/18BASAL CELL REMOVAL bbott loop recorder Assert-IQ EL+ implant////. Successful implant of new loop recorder.- 1. Routine follow up per protocol. Successful 24 mm WATCHMAN FLX Pro device placement 2 Successful deployment of Perclose closure device to right femoral vein 04/25/2025 * Hospitalization/Major Diagno stic Procedure: * Medications: Objective: * Vitals: * Physical Examination: Assessment: Plan: * Treatment: * Procedure Codes: * true * Date: Generated for Luis Manuel mohr/Trent/Vasquezitting on: 0 04/30/2025 11:48 AM CDT
--- OUTSIDE RECORDS SUMMARY | 2025-04-25 08:30 | XMS_ITS ---
Author Organization [facility] Address [address] [facility] [place] [address] Care Team Providers Care Pit Furnace Melter Name Role Phone Fernanda Bagley Primary Care Provider Anais Jimenez Unavailable [phone] Ronni Krishnan [phone] REASON FOR VISIT Watchman Check-in 0930 Encounters Encounter Location Date Provider Diagnosis [facility] [address] [place] [address], [place] [address] 04/25/2025 Ronni Krishnan Plan Of Treatment Next Appt Details Provider Name:Ronni Krishnan , 05/29/2025 02:30:00 PM, [address] [place] [address], [place], [address], Provider Name:Ronni Krishnan , 06/16/2025 11:00:00 AM, [address] [place] [address], [place], [address], Provider Name:Lona Cornelius, 06/27/2025 10:00:00 AM, [address] [place], [address], Provider Name:Ronni Krishnan , 10/09/2025 11:30:00 AM, [address] [place] [address], [place], [address], Provider Name:Ronni Krishnan , 10/17/2025 10:00:00 AM, [address] [place] [address], [place], [address], Progress Notes * Kalli MORENO DDOB:[birth year] (79 yo F)Acc No.[id number]:04/25/2025 Patient: Kalli MARIE Provider: Urmila Krishnan MD :1945 A ge:79 Y S ex:Female Date:04/25/2025 Address:[address] [place] [address] [facility] Pcp:CHRISTELLE Quezada 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 Watchman Check-in 929. * Medical History: Objective: * Vitals: Assessment: Plan: * Treatment: * Billing Information: * Visit Code: * Procedure Codes: * Electronic signature of Karuna Krishnan MD on 04/30/2025 at 11:47 AM CDT Sign off status: Pending * Provider: Urmila Krishnan MD Date: 04/25/2025 Generated for Luis Manuel mohr/Trent/Vasquezitting on: 04/30/2025 11:47 AM CDT
[2025-04-30 11:47] VITALS: BP 97/63; PULSE 81; RESP 18; TEMP 36.4; O2SAT 98; BMI 25.2
--- OUTSIDE RECORDS SUMMARY | 2025-04-30 11:48 | XMS_ITS | Clinical Summary ---
Author Organization [facility] Address [address] [facility] Attn: Epic Prelude ADT YOEL ARMIJO [address] Care Team Providers Care Correctional Medicine Physician Name Role Phone Emery Mckenzie MD, Marc Haney Primary Care Provider Allergies Active Allergy Reactions Criticality Noted Date Comments Citalopram Itching High 05/30/2020 Medications losartan (COZAAR) 50 mg tablet TAKE 1 TABLET BY MOUTH ONCE DAILY 06/05/20 20 Active diltiaZEM (CARDIZEM SR) 120 mg Extended Release 12 hour capsule Take 120 mg by mouth daily. Active cannabidiol, CBD, product, for documentation purposes, Apply to affected area see administration instructions. Active ergocalciferol (VITAMIN D2) 200 mcg/mL (8,000 unit/mL) Drops Take 8,000 Units by mouth daily. Active Active Problems Problem Noted Date Diagnosed Date RIGHT TKA (09/25/2020) 09/26/2020 Preoperative general physical examination 2019 Primary osteoarthritis of right knee 09/11/2020 Essential hypertension 09/11/2020 Hyponatremia 09/11/2020 Tibialis anterior tendinitis-R. 05/20/2013 Arch pain-R. 10/12/2012 Sinus tarsi pain, CLEMENCIA. 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 04/29/2012 Tibialis posterior tendinitis, R. 04/29/2012 DJD, mild, medial midfoot articulations, R. 02/2012 Calcaneal spur; mild inferio r and posterior-L, mild-moderate posterior-R. 04/29/2012 Contracted digits, 2-3, L > R. 04/29/2012 Overview (02/21/2021): V-spacing ELISABETH on CPAP Resolved Problems Problem Noted Date Diagnosed Date Resolved Date Tibialis anterior tendinitis, R. 08/17/2012 07/20/2013 Family History Medical History Relation Name Comments Heart Disease Brother 1 Respiratory Disease Brother 1 Respiratory Disease Brother 2 Heart Disease Brother 3 heart transpla nt Respiratory Disease Father emphysem ia Cancer Mother Liver CA Asthma Son 1 Arthritis-osteo Son 2 Healthy Son 3 Relation Name Status Comments Brother 1 Brother 2 Alive Brother 3 Alive Father Mother Son 1 Alive Son 2 Alive Son 3 Alive Social History Tobacco Use Types Packs/Day Years Used Date Smoking Tobacco: Never Smokeless Tobacco: Never Alcohol Use Standard Drinks/Week Comments No 0 (1 standard drink = 0.6 oz pur e alcohol) Feeling Safe Answer Date Recorded Are you in a relationship wi th someone who hurts you emotionally and/or physically? 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 Gender Identity Not on file Sexual Orientation Not on file Last Filed Vital Signs Vital Sign Reading Time Taken Comments Blood Pressure 119/55 12/22/2023 11:00 AM PRINT SHOP HELPER Pulse 79 12/22/2023 11:00 AM PRINT SHOP HELPER Temperature 36 C (96.8 F) 12/22/2023 11:00 AM PRINT SHOP HELPER Respiratory Rate 18 12/22/2023 11:00 AM PRINT SHOP HELPER Oxygen Saturation 98% 12/22/2023 11:00 AM PRINT SHOP HELPER Inhaled Oxygen Concentration - - Weight 76.2 kg (168 lb) 12/22/2023 7:58 AM PRINT SHOP HELPER Height 165.1 cm (5' 5 ) 12/22/2023 7:58 AM PRINT SHOP HELPER Body Mass Index 27.96 12/22/2023 7:58 AM PRINT SHOP HELPER Plan of Treatment Health Maintenance Due Date Last Done Comments DTAP/TDAP/TD VACCINES (1 - Tdap) 1964 PNEUMOCOCCAL VACCINE 50+ YEARS (1 of 1 - PCV) 11/28/18 96 ZOSTER VACCINE (1 of 2) 1995 RSV VACCINE (60+ or ) (1 - 1-dose 75+ series) 2020 OSTEOPOROSIS SCREENING 01/11/2024 01/10/2019 INFLUENZA VACCINE (#1) 2025 Medical Devices Implanted Type Area Before And After School Daycare Worker Device Identifier Shelf Expiration Date Model / Serial / Lot Simplex Hi Viscosity Gent 6195-1-010 - [id number] Implanted:Qty: 1 on 09/25/2020 by Jann Araya III, MD Cement Right: Knee [employer]OR[employer] [id number] 09/24/2021 6195-1-010 / / [id number] Simplex Hi Viscosity Gent 6195-1-010 - [id number] Implanted:Qty: 1 on 09/25/2020 by Jann Araya III, MD Cement Right: Knee [employer] [id number] 09/24/2021 6195-1-010 / / [id number] Remote Monitor Inspire Obstruct Sleep Xtrnl Model 2580 - [id number] Implanted:Qty: 1 on 12/22/2023 by Christian Naranjo MD at [facility] Integral INSPIRE MED SYS 2580 / / Comp Fem Attune Ps Cmnt Sz6 1504-10-226 - [id number] Implanted:Qty: 1 on 09/25/2020 by Jann Araya III, MD Knee Right: Knee [employer] [id number] 07/25/2030 [id number] / / [id number] Comp Tib Attune Fb Cmnt Sz5 1506-70-005 - [id number] Implanted:Qty: 1 on 09/25/2020 by Jann Araya III, MD Knee Right: Knee [employer] [id number] 06/25/2030 [id number] / / [id number] Insert Attune Fb Ps Sz6 10mm 1516-40-610 - [id number] Implanted:Qty: 1 on 09/25/2020 by aJnn Araya III, MD Knee Right: Knee [employer] [id number] 10/25/2024 [id number] / / [id number] Patella Attune Marjan 32mm 1518-10-032 - [id number] Implanted:Qty: 1 on 09/25/2020 by Jann Araya III, MD Knee Right: Knee [employer] [id number] 07/25/2025 [id number] / / [id number] Lead Neurostimulator Inspire Stim Obstruct Sleep 4063 - [id number] Implanted:Qty: 1 on 12/22/2023 by Christian Naranjo MD at [facility] Lead Right: Neck INSPIRE MED SYS 4063 / [id number] / Lead Neurostimulator Inspire Pulse Gen Obstruct Sleep 3028 - [id number] Implanted:Qty: 1 on 12/22/2023 by Christian Naranjo MD at [facility] Lead Right: Chest [employer] SYS 09/21/2026 3028 / [id number] / Lead Neurostimulator Inspire Respiration-Sensi ng Obstruct Sleep 4340 - [id number] Implanted:Qty: 1 on 12/22/2023 by Christian Naranjo MD at [facility] Lead Right: Chest IN[employer] SYS 10/09/2026 4340 / [id number] / Other Other Bilatera l: Breast Insurance MEDICARE PART A AND [place] [facility] [place] [address] * Guarantor: LAURA MORENO Account Type Relation to Patient Date of Phone Billing Address Personal/Family [address] [place] [address] RX [employer] PLANS (INTERNAL) [facility] [employer] Medicare Part D Advance Directives For more information, please contact: [phone] * Full Code (Latest Code Status on File) Date Activated Date Inactivated Comments 12/22/2023 7:21 AM 12/22/2023 1:30 PM Care Teams Correctional Medicine Physician Relationship Specialty Start Date End Date Marc Land Jr., MD [address] [place] [address] PCP - General Family Practice 04/29/12
--- OUTSIDE RECORDS SUMMARY | 2025-04-30 11:48 | XMS_ITS | Encounter Summary ---
Author Organization [facility] Address [address] [place] [address] Care Team Providers Care Curator Of Collections Name Role Phone Emery Mckenzie MD, Marc Haney Primary Care Provider Encounter Details Date Type Department Care Team (Latest Contact Info) Description 10/28/2000 Outpatient Historical [facility] [place] NO ADDRESS ON FILE Urinary tract infection, site not specified (Primary Dx) Social History Tobacco Use Types Packs/Day Years Used Date Smoking Tobacco: Never Assessed Comments Unknown Sex and Gender Information Value Date Recorded Sex Assigned at Not on file 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
--- OUTSIDE RECORDS SUMMARY | 2025-04-30 11:48 | XMS_ITS | Patient Health Record ---
Author Organization [facility] Address [address] [place], [place] [address] Care Team Providers Care Spray Worker Name Role Phone Fernanda Peralta PA-C Primary Care Provider Unavaila william López MD, Thanh Unavailable [phone] Christian Naranjo MD Unavailable Unavailable Fabian ADKINS, Heather Unavailable [phone] Allergies Allergen (clinical drug ingredient) Drug/Non Drug Allergy documented on EMR Reaction Allergy Type Onset Date Status citalopram CeleXA itch Drug Allergy Active prednisone predniSONE mood changes Drug Allergy Ac tive lisinopril cough Drug Allergy Active Results Component Value Reference Range Notes Urine tox screen / MS if ind icated Reviewed date:07/21/2024 03:21:22 PM Interpretation:Consistent Performing Lab: Notes/Report: Consistent Reason For Referral Reason Evaluation for possi ble treatment (clinic closing due to provider's fdc) Diagnosis 1 Cervicalgia (M54.2) Diagnosis 2 Spinal stenosis, cer vical region (M48.02) Diagnosis 3 Spondylosis without myelopathy or radiculopathy, cervical region (M47.812) Referral Organization [facility] Referring Provider First Name Thanh Referring Provider Last Name Rene Referring Provider Speciality Pain Manag ement Referred Provider Reagan Webber Referred Provider Specialty Pain Managem ent General Notes Sylvie Kaur 04/2025 11:48:30 AM >FAXED TODAY. Referral Priority Routine Referral Appointment Date 05/16/2025 Medications Medication SIG (Take, Route, Frequency, Duration) Notes Start Date End Date Status acetaminophen-hydroco done 325 mg-5 mg 1 tab orally Q4-6H prn pain (max 3/day; hold within 4H of planned sleep) for 28 days ICD-10: G89.29 03/23/2025 Active dilTIAZem 120 mg/12 hours 1 cap(s) orally every 12 hours for 30 day(s) Active Doxycycline Hyclate hyclate 100 mg 1 cap(s) orally 2 times a day for 10 day(s) 11/17/2024 Active losartan 25 mg 1 tab orally once a day Active estradiol topical 0.1 mg/g as directed intravaginally once a week Active Social History Tobacco Use: Social History Observation Description Date Details (start date - stop date) Never Smoker NA - NA Tobacco use: Question Answer Notes : nonsmoker AUDIT-C (Standard) Question Answer Notes Did you have a drink containing alcohol in the p ast year? 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 (Z79.891) Active confirmed Problem Obstructive sleep apnea syndrome (24539261) Obstructive sleep apnea (adult) (pediatric) (G47.33) Active confirmed Problem Chronic pain (78631057) Other chronic pain (G89.29) Active confirmed Problem Shoulder joint pain (356821027) Pain in right shoulder (M25.511) Active confirmed Problem Cervical spondylosis without myelopathy (249231065) Spondylosis without myelopathy or radiculopathy, cervical region (M47.812) Active confirmed Problem Spinal stenosis in cervical region (84280797) Spinal stenosis, cervical region (M48.02) Active confirmed Problem Cervicalgia (23518926) Cervicalgia (M54.2) Active confirmed Problem Long-term current use of drug therapy (424390410) Other geothermal system installer (current) drug therapy (Z79.899) Active confirmed Vital Signs Temperature 97.7 degrees Fahrenheit 02/22/2025 Blood pressure diastolic 75 mm Hg 02/22/2025 Oximetry 98 % 02/22/2025 Height 65 in 02/22/2025 Blood pressure systolic 138 mm Hg 02/22/2025 Weight 157.6 lbs 02/22/2025 BMI 26.22 kg/m2 02/22/2025 Encounters Encounter Location Date Provider Diagnosis [facility] [address] [place], [place] [id number] 06/01/2024 Heather Peralta Cervicalgia M54.2 ; Other chronic pain G89.29 and Obstructive sleep apnea (adult) (pediatric) G47.33 Pain Treatment [facility], [facility] [address] [place] [id number] 07/21/2024 Heather Peralta Cervicalgia M54.2 ; Other chronic pain G89.29 ; Obstructive sleep apnea (adult) (pediatric) G47.33 and 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 of opiate analgesic Z79.891 [facility] [address] [place], [place] [id number] 11/17/2024 Thanh López Cervicalgia M54.2 ; Other chronic pain G89.29 and Obstructive sleep apnea (adult) (pediatric) G47.33 Pain Treatment [place] [address] [place], [place] [id number] 02/22/2025 Thanh López Cervicalgia M54.2 ; Other chronic pain G89.29 and Obstructive sleep apnea (adult) (pediatric) G47.33 Pain Treatment [facility], [address] [id number] 12/13/2024 Thanh López Pain Treatment [facility], [address] [id number] 02/27/2025 Thanh López Pain Treatment [facility], [address] [id number] 03/08/2025 Thanh López Pain Treatment [facility], [address] [id number] 03/23/2025 Thanh López Assessments Encounter Date Diagnosis (ICD Code) Assessment Notes Treatment Notes Treatment Clinical Notes Section Notes 02/22/2025 Cervicalgia (ICD-10 - M54.2) Chronic cervical spine pain. 11/17/2024 Other chronic pain (ICD-10 - G89.29) Patient reports that taking her pain medication allows her to spend more time with family. Plan to continue oral opioid medication management. 11/17/2024 Cervicalgia (ICD-10 - M54.2) Chronic cervical spine pain. 07/21/2024 Cervicalgia (ICD-10 - M54.2) Chronic cervical spine pain. 06/01/2024 Cervicalgia (ICD-10 - M54.2) Chronic cervical spine pain. 06/01/2024 Obstructive sleep apnea (adult) (pediatric) (ICD-10 - G47.33) Patient reports good results with use of implanted Inspire device. Plan to continue to restrict opioid use in relation to sleep for safety concerns. 06/01/2024 Other chronic pain (ICD-10 - G89.29) Patient reports that taking her pain medication allows her to work in her yard and garden. Plan to continue oral opioid medication management. 07/21/2024 Obstructive sleep apnea (adult) (pediatric) (ICD-10 - G47.33) Patient reports good results with use of implanted Inspire device. Plan to continue to restrict opioid use in relation to sleep for safety concerns. 07/21/2024 Other chronic pain (ICD-10 - G89.29) Patient reports that taking her pain medication allows her to be more active. Plan to continue oral opioid medication management. 11/17/2024 Obstructive sleep apnea (adult) (pediatric) (ICD-10 - G47.33) Patient reports good results with use of implanted Inspire device. Plan to continue to restrict opioid use in relation to sleep for safety concerns. 02/22/2025 Other chronic pain (ICD-10 - G89.29) Patient reports that taking her pain medication allows her to spend more time with family. Plan to continue oral opioid medication at today's visit. 02/22/2025 Obstructive sleep apnea (adult) (pediatric) (ICD-10 - G47.33) Patient reports good results with use of implanted Inspire device. Plan to continue to restrict opioid use in relation to sleep for safety concerns. 07/21/2024 jail (current) use of opiate analgesic (ICD-10 - Z79.891) 2022 opioid (OUD) risk tool score = 1. This places the patient in the low risk category. Plan urine toxicology screen today to monitor for presence of any unprescribed or illicit controlled substance(s), as well as prescribed hydrocodone. 11/17/2024 Other Due to the [facility]'s inability to store more than 1 month of opioid prescriptions at a time, remaining eRx will be sent in 28 days. The service was provided by LUCILLE Tomlinson, as part of the ongoing care plan established by Thanh López MD, who was present in the office for direct supervision during the encounter. 02/22/2025 Other The service was provided by LUCILLE Tomlinson, as part of the ongoing care plan established by Thanh López MD, who was present in the office for direct supervision during the encounter. Patient was provided with a letter at today's visit informing patient that this clinic is closing due to Dr. López's fdc; see scanned document. Terminal prescriptions were given to the patient along with tapering instructions. Remaining eRxs from today's visit will be sent to the [facility] in 14 days and 28 days. 07/21/2024 Other 06/01/2024 Other Plan Of Treatment No Information Insurance Providers Payer Name Payer Address Payer Phone Subscriber Number Group Number Insured Name Patient Relationship to Insured Coverage Start Date Coverage End Date [employer] Medicare Part B Claims Department [address] [address] [place] [address] [id number] Kalli Castaneda Self - patient is the insured [employer] [facility] Claims Dept [address] [place] [id number] Leonel Kalli Self - patient is the insured Medical (General) History Medical History History ICD Code Chronic pain Neck pain Cervical spondylosis and spinal stenosis Shoulder pain, history of shoulder tendo nitis as per prior patient report Right knee pain after TKA Arthritis of hands, knees and feet Pain in left ear / otalgia Chronic bronchitis Hypertension Low iron (presumed anemia) Afib Fractured right wrist 03/2023 Sleep apnea, history of CPAP device use and subsequent Inspire device implantation Obesity, mild Surgical History Surgery Date(Month/Year) Left ear surgery, 1974 Hysterectomy with BSO, 1989 Knee replacement, left, 2013 Knee replacement, right, performed at [facility] by Dr. Araya, 09/2020 Placement of Inspire, perfor med at [facility] in [place], [place] by Dr. Kimmie Naranjo, 12/22/23 Bladder surgery, performed in [facility] by Dr. Lu, 04/2024 Inspire device implantation Bladder surgery, performed at [facility] by Dr Martha Osorio, 05/2024 Excision of basal cell carci noma, left ear, performed at [facility] in [place], [place], 01/2025 Hospitalization History Reason Date(Month/Year) A-fib and high blood pressure, treated fredrick [facility], 11/2022 Low iron, 2014
--- OUTSIDE RECORDS SUMMARY | 2025-04-30 11:48 | XMS_ITS | Patient Health Record ---
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 Role Phone Fernanda Bagley Primary Care Provider Anais Jimenez Unavailable [phone] RossyRonni flores Unavailable [phone] Allergies Allergen (clinical drug ingredient) Drug/Non Drug Allergy documented on EMR Reaction Allergy Type Onset Date Status lisinopril Lisinopril Unknown Drug Allergy Activ e Results Component Value Reference Range Notes Echo Complete [id number] Reviewed date:12/26/2024 04:19:52 PM Interpretation: Performing Lab: Notes/Report: Yohana Warren Reviewed date:03/10/2025 11:15:50 AM Interpretation: Performing Lab: Notes/Report: See Below For Report This report was dictated outside of the [employer] system. Read See Below For Report Crossmatch--[id number] (Not yet r eviewed by provider) Interpretation: Performing Lab: Notes/Report: Blood Bank ID [id number] Blood Product Notification hold IS 0+ XM Interp Compatible IS 0+ XM Interp Compatible Basic Metabolic Panel (BMP) 44260 (Not yet reviewed by provider) Interpretation: Performing Lab: Notes/Report: atrial fibrillation s/p watchman procedure Sodium 143 136-145 MMOL/L Potassium 3.8 3.5-5.1 MMOL/L Chloride 111 98-107 MMOL/L CO2 23.4 20.0-31.0 MMOL/L Glucose Serum 96 71-110 MG/DL Testing perfor med at [facility], [address] [place] [address] [place] [address]. CLIA ID#: [id number] BUN 13 7-21 MG/DL Delta noted Creat .63 .51-1.17 MG/DL V-msfjmf-n-benzoquino ne imine (NAPQI) is a metabolite of acetaminophen, NAPQI concentrations of apparoximately 10 mg/L correlation to toxic levels of acetaminophen demonstrates a greater than or equil to 10% change in results. NAPQI concentrations greater than this may lead to falsely depressed results for patient samples. Use of this assay is not recommended for patients undergoing treatment with phenindione, due to the potential for falsely depressed results. GFR 90.1 Calculation per formed from GFR calculator provided by the National Kidney Foundation. Glomerular Filtration rate(GRF) is the best overall index of kidney function. Normal GFR varies according to age,sex, body size, and declines with age. The National Kidney Foundation recommends using the CKD-EPI Creatinine Equation(2020) to estimate GFR. Anion Gap 12 5-15 BUN/Creat Ratio 20.6 12.0-20.0 % Calcium 8.6 8.7-10.4 MG/DL Osmo Serum,Calculated 296 280-300 MOSM/KG Echo Limited EC-[id number] (Not y et reviewed by provider) Interpretation: Performing Lab: Notes/Report: Addendum - Report Version 2 Cardiopulmonary Services Name: KALLI CASTANEDA Study Date: 04/25/2025 : 1945 Patient Location: [facility] Age: 79 yrs Gender: Female Height: 65 in Weight: 154 lb BSA: 1.8 m2 Reason For Study: Paroxysmal Atrial Fibrillation watchman procedure Interpretation Summary The left ventricle is normal in size. Left ventricular systolic function is normal. Left Ventricular Function is estimated to be 55-60%. There is mild mitral regurgitation. There is mild tricuspid regurgitation. Left Ventricle The left ventricle is normal in size. Left ventricular systolic function is normal. Left Ventricular Function is estimated to be 55-60%. Right Ventricle The right ventricle is normal size. Atria The left atrial size is normal. Right atrial size is normal. Pericardium/Pleural There is no pericardial effusion. Mitral Valve There is mild mitral regurgitation. Aortic Valve The aortic valve opens well. Tricuspid Valve There is mild tricuspid regurgitation. MMode/2D Measurements & Calculations IVSd: 0.95 cm LVIDd: 4.4 cm FS: 41.1 % LVIDs: 2.6 cm EDV(Teich): 86.6 ml LVPWd: 0.79 cm ESV(Teich): 24.1 ml EF(Teich): 72.2 % Ao root diam: 2.2 cm LVOT diam: 2.0 cm Ao root area: 3.9 cm2 LVOT area: 3.2 cm2 ACS: 1.4 cm LA dimension: 4.9 cm Doppler Measurements & Calculations MV E max max: 26.1 cm/sec MV V2 max: 122.7 cm/sec Ao V2 max: 109.2 cm/sec MV max P.0 mmHg Ao max P.8 mmHg MV V2 mean: 62.6 cm/sec Ao V2 mean: 68.4 cm/sec MV mean P.9 mmHg Ao mean P.3 mmHg MV V2 VTI: 38.6 cm Ao V2 VTI: 27.4 cm TV V2 max: 60.6 cm/sec TR max max: 225.1 cm/sec RAP systole: 10.0 mmHg TV max P.5 mmHg TR max P.3 mmHg RVSP(TR): 30.3 mmHg Ordering Physician: Ronni Krishnan Referring Physician: Ronni Krishnan Performed By: Indira Singh Addendum - Report Version 2 Cardiopulmonary Services Name: KALLI CASTANEDA Study Date: 04/25/2025 : 1945 Patient Location: [facility] Age: 79 yrs Gender: Female Height: 65 in Weight: 154 lb BSA: 1.8 m2 Reason For Study: Paroxysmal Atrial Fibrillation watchman procedure Interpretation Summary The left ventricle is normal in size. Left ventricular systolic function is normal. Left Ventricular Function is estimated to be 55-60%. There is mild mitral regurgitation. There is mild tricuspid regurgitation. Left Ventricle The left ventricle is normal in size. Left ventricular systolic function is normal. Left Ventricular Function is estimated to be 55-60%. Right Ventricle The right ventricle is normal size. Atria The left atrial size is normal. Right atrial size is normal. Pericardium/Pleural There is no pericardial effusion. Mitral Valve There is mild mitral regurgitation. Aortic Valve The aortic valve opens well. Tricuspid Valve There is mild tricuspid regurgitation. MMode/2D Measurements & Calculations IVSd: 0.95 cm LVIDd: 4.4 cm FS: 41.1 % LVIDs: 2.6 cm EDV(Teich): 86.6 ml LVPWd: 0.79 cm ESV(Teich): 24.1 ml EF(Teich): 72.2 % Ao root diam: 2.2 cm LVOT diam: 2.0 cm Ao root area: 3.9 cm2 LVOT area: 3.2 cm2 ACS: 1.4 cm LA dimension: 4.9 cm Doppler Measurements & Calculations MV E max max: 26.1 cm/sec MV V2 max: 122.7 cm/sec Ao V2 max: 109.2 cm/sec MV max P.0 mmHg Ao max P.8 mmHg MV V2 mean: 62.6 cm/sec Ao V2 mean: 68.4 cm/sec MV mean P.9 mmHg Ao mean P.3 mmHg MV V2 VTI: 38.6 cm Ao V2 VTI: 27.4 cm TV V2 max: 60.6 cm/sec TR max max: 225.1 cm/sec RAP systole: 10.0 mmHg TV max P.5 mmHg TR max P.3 mmHg RVSP(TR): 30.3 mmHg Ordering Physician: Ronni Krishnan Referring Physician: Ronni Krishnan Performed By: Indira Singh Schedule Confirmation (Not y et reviewed by provider) Interpretation: Performing Lab: Notes/Report: Left Atrial Appendage Occlusion Echo Limited [id number] (Not y et reviewed by provider) Interpretation: Performing Lab: Notes/Report: Cardiopulmonary Services Name: KALLI CASTANEDA Study Date: 04/25/2025 : 1945 Patient Location: [facility] Age: 79 yrs Gender: Female Reason For Study: Paroxysmal Atrial Fibrillation s/p Watchman Interpretation Summary ONE HOUR POST ECHO WATCHMAN. Successful 24 mm WATCHMAN FLX Pro device placement The left ventricle is normal in size. Left ventricular systolic function is normal. Left Ventricular Function is estimated to be 55-60%. Watchman device is well seated, no color doppler flow around the device was appreciated. There is no pericardial effusion. Left Ventricle The left ventricle is normal in size. Left ventricular systolic function is normal. Left Ventricular Function is estimated to be 55-60%. Atria Watchman device is well seated, no color doppler flow around the device was appreciated. Pericardium/Pleural There is no pericardial effusion. Ordering Physician: Ronni Krishnan Referring Physician: Ronni Krishnan Performed By: Indira Singh Schedule Confirmation Reviewed date:03/10/2025 11:15:50 AM Interpretation: Performing Lab: Notes/Report: Pacemaker Generator Change Schedule Confirmation Reviewed date:03/10/2025 11:15:50 AM Interpretation: Performing Lab: Notes/Report: Pacemaker Generator Change PRBC-LR--P9016 (Not yet revi ewed by provider) Interpretation: Performing Lab: Notes/Report: Number of Units 2 Product Type Blood Product zzzLeft Atrial Appendage Occ lusion (Not yet reviewed by provider) Interpretation: Performing Lab: Notes/Report: suy=[id number]&org=iSite zzzLeft Atrial Appendage Occ lusion (Not yet reviewed by provider) Interpretation: Performing Lab: Notes/Report: See Below For Report This report was dictated outside of the [employer] system. Read See Below For Report Echo Limited EC-[id number] (Not y et reviewed by provider) Interpretation: Performing Lab: Notes/Report: vrz=[id number]&org=iSite Echo Limited EC-92245 (Not y et reviewed by provider) Interpretation: Performing Lab: Notes/Report: prn=[id number]&org=iSite Schedule Confirmation (Not y et reviewed by provider) Interpretation: Performing Lab: Notes/Report: Left Atrial Appendage Occlusion Schedule Confirmation (Not y et reviewed by provider) Interpretation: Performing Lab: Notes/Report: Left Atrial Appendage Occlusion Cardiac Echo Transesophageal EC-[id number] (Not yet reviewed by provider) Interpretation: Performing Lab: Notes/Report: kzd=[id number]&org=iSite CBC w\ Auto Diff 09104 (Not yet reviewed by provider) Interpretation: Performing Lab: Notes/Report: atrial fibrillation s/p watchman procedure WBC 6.2 4.5-11.0 X10'3 RBC 4.70 4.00-5.20 X10'6 Hgb 13.4 12.0-16.0 G/DL Hct 40.3 36.0-46.0 % MCV 85.7 80.0-100.0 FL MCH 28.5 27.0-31.0 PG MCHC 33.3 31.0-37.0 G/DL Platelet 208 150-400 X10'3 RDW-SD 39.8 35.0-49.0 FL RDW-CV 12.5 12.2-15.6 % MPV 10.2 9.2-12.0 FL Neutro Auto% 62.2 40.0-70.0 % Lymph Auto% 31.5 22.0-44.0 % Rabun Auto% 3.4 3.0-7.0 % Eos Auto% 1.0 2.0-4.0 % Baso Auto% 1.6 0.0-1.0 % Imm Gran% .3 .0-.4 % Neutro Abs 3.87 .80-7.70 Absolute Neutrophil Count 3870 Lymph Abs 1.96 .10-4.10 Rabun Abs .21 .20-1.00 Eos Abs .06 .00-.40 Baso Abs .10 .00-.20 Imm Gran Abs .02 .00-.10 NRBC# .00 .00-.20 X10'3 NRBC% .00 .00-.20 /100 intact WBC's ABOR-[id number],10261 (Not ye t reviewed by provider) Interpretation: Performing Lab: Notes/Report: [facility] Interp O POS WBC Auto Diff--03016 (Not ye t reviewed by provider) Interpretation: Performing Lab: Notes/Report: Added by Discern Rules Neutro Auto% 56.2 40.0-70.0 % Lymph Auto% 33.8 22.0-44.0 % Rabun Auto% 7.0 3.0-7.0 % Eos Auto% 1.5 2.0-4.0 % Baso Auto% 1.3 0.0-1.0 % NRBC% .00 .00-.20 /100 intact WBC's Neutro Abs 3.04 .80-7.70 Absolute Neutrophil Count 3040 Lymph Abs 1.83 .10-4.10 Rabun Abs .38 .20-1.00 Eos Abs .08 .00-.40 Baso Abs .07 .00-.20 NRBC# .00 .00-.20 X10'3 Imm Gran Abs .01 .00-.10 Imm Gran% .2 .0-.4 % CBC Reflex Man Diff 76917, 8 5007 (Not yet reviewed by provider) Interpretation: Performing Lab: Notes/Report: WBC 5.4 4.5-11.0 X10'3 RBC 4.75 4.00-5.20 X10'6 Hgb 13.4 12.0-16.0 G/DL Hct 40.9 36.0-46.0 % MCV 86.1 80.0-100.0 FL MCH 28.2 27.0-31.0 PG MCHC 32.8 31.0-37.0 G/DL Platelet 214 150-400 X10'3 RDW-SD 39.8 35.0-49.0 FL RDW-CV 12.4 12.2-15.6 % MPV 10.3 9.2-12.0 FL Review Auto Diff Conf Partial Thromboplastin Time 85867 (Not yet reviewed by provider) Interpretation: Performing Lab: Notes/Report: PTT 26.6 22.6-31.8 SEC Therapeutic Range: 60-100. Critical Value Starting at > 100. Basic Metabolic Panel (BMP) 20104 (Not yet reviewed by provider) Interpretation: Performing Lab: Notes/Report: Sodium 141 136-145 MMOL/L Potassium 4.0 3.5-5.1 MMOL/L Chloride 106 98-107 MMOL/L CO2 27.1 20.0-31.0 MMOL/L Glucose Serum 89 71-110 MG/DL Testing perfor med at [address] [place] [address]. CLIA ID#: [id number] BUN 24 7-21 MG/DL Creat .74 .51-1.17 MG/DL H-xeoybk-r-benzoquino ne imine (NAPQI) is a metabolite of acetaminophen, NAPQI concentrations of apparoximately 10 mg/L correlation to toxic levels of acetaminophen demonstrates a greater than or equil to 10% change in results. NAPQI concentrations greater than this may lead to falsely depressed results for patient samples. Use of this assay is not recommended for patients undergoing treatment with phenindione, due to the potential for falsely depressed results. GFR 81.9 Calculation per formed from GFR calculator provided by the National Kidney Foundation. Glomerular Filtration rate(GRF) is the best overall index of kidney function. Normal GFR varies according to age,sex, body size, and declines with age. The National Kidney Foundation recommends using the CKD-EPI Creatinine Equation(2020) to estimate GFR. Anion Gap 12 5-15 BUN/Creat Ratio 32.4 12.0-20.0 % Calcium 9.9 8.7-10.4 MG/DL Osmo Serum,Calculated 295 280-300 MOSM/KG Antibody Screen 20683 (Not y et reviewed by provider) Interpretation: Performing Lab: Notes/Report: Blood Bank ID [id number] ABSC Interp Negative ABORh 96055, 77529 (Not yet reviewed by provider) Interpretation: Performing Lab: Notes/Report: ABO/Rh Interp O POS Prothrombin Time 01048 (Not yet reviewed by provider) Interpretation: Performing Lab: Notes/Report: ProTime 10.8 9.1-11.9 SEC Normal Range: 9 .1-11.9 INR 1.02 .90-1.20 Therapeutic Range: 2.0-3.0 Therapaeutic Range for heart valve replacement: 2.5-3.50 Echo Complete EC-[id number] Reviewed date:01/24/2025 10:30:15 AM Interpretation: Performing Lab: Notes/Report: qhd=[id number]&org=iSite Echo Complete EC-[id number] Reviewed date:01/24/2025 10:30:15 AM Interpretation: Performing Lab: Notes/Report: Cardiopulmonary Services Name: KALLI CASTANEDA Study Date: 01/05/2025 : 1945 Patient Location: [facility] Age: 79 yrs Gender: Female Reason For Study: MR.TR Interpretation Summary The left ventricle is normal in size. There is mild mitral regurgitation. There is mild aortic valve sclerosis without evidence of stenosis. Left Ventricular Function is estimated to be 60-65%. Left ventricular systolic function is normal. Proximal septal thickening is noted. Recommendations Continue present medication. Will continue to follow regularly. Left Ventricle The left ventricle is normal in size. Proximal septal thickening is noted. Left Ventricular Function is estimated to be 60-65%. Left ventricular systolic function is normal. Right Ventricle The right ventricle is normal size. Atria The left atrial size is normal. Right atrial size is normal. Great Vessels The aortic root is normal size. Pericardium/Pleural There is no pericardial effusion. There is no pleural effusion. Mitral Valve The mitral valve leaflets appear normal. There is no evidence of stenosis, fluttering, or prolapse. There is mild mitral regurgitation. Aortic Valve There is mild aortic valve sclerosis without evidence of stenosis. Tricuspid Valve The triscupid valve leaflets appear normal. There is no stenosis, fluttering, or prolapse. There is mild tricuspid regurgitation. Right ventricular systolic pressure is elevated at 40-50mmHg. Pulmonic Valve The pulmonic valve is not well seen, but is grossly normal. There is no pulmonic valvular regurgitation. MMode/2D Measurements & Calculations IVSd: 1.6 cm LVIDd: 3.1 cm FS: 32.8 % LVIDs: 2.1 cm EDV(Teich): 37.8 ml ESV(Teich): 14.1 ml EF(Teich): 62.8 % Ao root diam: 2.3 cm asc Aorta Diam: 3.5 cm LVOT diam: 1.9 cm Ao root area: 4.3 cm2 LVOT area: 2.8 cm2 LA dimension: 4.5 cm Doppler Measurements & Calculations MV E max max: 115.7 cm/secMV dec slope: 605.7 cm/sec2 Ao V2 max: 176.4 cm/sec MV A max max: 93.2 cm/sec MV dec time: 0.19 sec Ao max P.4 mmHg MV E/A: 1.2 LUCIA(V,D): 2.1 cm2 LV V1 max P.7 mmHg MR max max: 491.8 cm/sec TV E max max: 98.4 cm/sec LV V1 max: 129.7 cm/sec MR max P.8 mmHg TV A max max: 95.4 cm/sec PA V2 max: 158.5 cm/sec TR max max: 305.1 cm/sec RAP systole: 10.0 mmHg PA max P.1 mmHg TR max P.2 mmHg RVSP(TR): 47.2 mmHg Ordering Physician: Ronni Krishnan Referring Physician: Anais Chiang Performed By: Erik Monahan Chest Watchman RAD Reviewed date:07/13/2024 02:44:34 PM Interpretation: Performing Lab: Notes/Report: See Below For Report CTA Chest Watchman RAD Read See Below For Report Schedule Confirmation Reviewed date:07/13/2024 02:44:41 PM Interpretation: Performing Lab: Notes/Report: CTA Chest Watchman RAD Schedule Confirmation Reviewed date:07/13/2024 02:44:41 PM Interpretation: Performing Lab: Notes/Report: CTA Chest Watchman zzzCTA Chest Watchman RAD Reviewed date:07/13/2024 02:44:41 PM Interpretation: Performing Lab: Notes/Report: mcr=[id number]&org=Annie CTA Chest Watchman-[id number] Reviewed date:07/13/2024 02:44:34 PM Interpretation: Performing Lab: Notes/Report: See Below For Report CTA Chest Watchman Diagnosis Description: Paroxysmal atrial fibrillation Read See Below For Report Basic Metabolic Panel (BMP) 17940 Reviewed date:07/13/2024 02:44:41 PM Interpretation: Performing Lab: Notes/Report: Diagnosis Description: Paroxysmal atrial fibrillation Diagnosis Description: Essential (primary) hypertension Sodium 138 136-145 MMOL/L Potassium 4.0 3.5-5.1 MMOL/L Chloride 105 98-107 MMOL/L CO2 26.3 20.0-31.0 MMOL/L Glucose Serum 83 71-110 MG/DL Testing perfor med at [address] [place] [address]. CLIA ID#: [id number] BUN 11 7-21 MG/DL Creat .68 .51-1.17 MG/DL U-twdxec-p-benzoquino ne imine (NAPQI) is a metabolite of acetaminophen, NAPQI concentrations of apparoximately 10 mg/L correlation to toxic levels of acetaminophen demonstrates a greater than or equil to 10% change in results. NAPQI concentrations greater than this may lead to falsely depressed results for patient samples. Use of this assay is not recommended for patients undergoing treatment with phenindione, due to the potential for falsely depressed results. GFR 72.3 Calculation per formed from GFR calculator provided by the National Kidney Foundation. Glomerular Filtration rate(GRF) is the best overall index of kidney function. Normal GFR varies according to age,sex, body size, and declines with age. The National Kidney Foundation recommends using the CKD-EPI Creatinine Equation(2020) to estimate GFR. Anion Gap 11 5-15 BUN/Creat Ratio 16.2 12.0-20.0 % Calcium 10.4 8.7-10.4 MG/DL Osmo Serum,Calculated 285 280-300 MOSM/KG Cardiac Echo Transesophageal EC-[id number] (Not yet reviewed by provider) Interpretation: Performing Lab: Notes/Report: Cardiopulmonary Services Name: KALLI CASTANEDA Study Date: 04/25/2025 : 1945 Patient Location: [facility] Age: 79 yrs Gender: Female Reason For Study: Paroxysmal atrial fibrillation Interpretation Summary A comprehensive transesophageal echocardiogram was performed, including 2D, color Doppler, pulsed wave doppler and 3D imaging techniques. DANIA probe inserted by Dr. Krishnan. No left atrial appendage thrombus. The LIBRADO was visualized in multiple views (0, 45, 90, and 135 degrees). The ostium measured 13 mm. Adequate LIBRADO morphology and measurements for Watchman device placement. No alex-device leak noted post implant. Ordering Physician: Ronni Krishnan Referring Physician: Ronni Krishnan Performed By: Iveth Cavazos RCS CTA Chest Watchman-[id number] Reviewed date:07/13/2024 02:44:41 PM Interpretation: Performing Lab: Notes/Report: hip=[id number]&org=iSite Electrocardiogram (EKG) - 93 000 Reviewed date:02/28/2025 02:23:45 PM Interpretation: Performing Lab: Notes/Report: Prothrombin Time 96234 Reviewed date:03/10/2025 11:15:50 AM Interpretation: Performing Lab: Notes/Report: Diagnosis Description: Paroxysmal atrial fibrillation ProTime 10.8 9.1-11.9 SEC Normal Range: 9 .1-11.9 INR 1.02 .90-1.20 Therapeutic Range: 2.0-3.0 Therapaeutic Range for heart valve replacement: 2.5-3.50 Partial Thromboplastin Time 80695 Reviewed date:03/10/2025 11:15:50 AM Interpretation: Performing Lab: Notes/Report: Diagnosis Description: Paroxysmal atrial fibrillation PTT 25.9 22.6-31.8 SEC Therapeutic Range: 60-100. Critical Value Starting at > 100. Schedule Confirmation Reviewed date:07/13/2024 02:44:41 PM Interpretation: Performing Lab: Notes/Report: CTA Chest Watchman RAD Basic Metabolic Panel (BMP) 95331 Reviewed date:03/10/2025 11:15:50 AM Interpretation: Performing Lab: Notes/Report: Diagnosis Description: Paroxysmal atrial fibrillation Sodium 141 136-145 MMOL/L Potassium 3.8 3.5-5.1 MMOL/L Chloride 109 98-107 MMOL/L CO2 26.0 20.0-31.0 MMOL/L Glucose Serum 88 71-110 MG/DL Testing perfor med at [facility], [address] [place] [address] [place] [address]. CLIA ID#: [id number] BUN 18 7-21 MG/DL Creat .78 .51-1.17 MG/DL M-jktvdq-n-benzoquino ne imine (NAPQI) is a metabolite of acetaminophen, NAPQI concentrations of apparoximately 10 mg/L correlation to toxic levels of acetaminophen demonstrates a greater than or equil to 10% change in results. NAPQI concentrations greater than this may lead to falsely depressed results for patient samples. Use of this assay is not recommended for patients undergoing treatment with phenindione, due to the potential for falsely depressed results. GFR 76.6 Calculation per formed from GFR calculator provided by the National Kidney Foundation. Glomerular Filtration rate(GRF) is the best overall index of kidney function. Normal GFR varies according to age,sex, body size, and declines with age. The National Kidney Foundation recommends using the CKD-EPI Creatinine Equation(2020) to estimate GFR. Anion Gap 10 5-15 BUN/Creat Ratio 23.1 12.0-20.0 % Calcium 9.5 8.7-10.4 MG/DL Osmo Serum,Calculated 293 280-300 MOSM/KG CBC Ref[place] Diff 55765, 8 5007 Reviewed date:03/10/2025 11:15:50 AM Interpretation: Performing Lab: Notes/Report: Diagnosis Description: Paroxysmal atrial fibrillation WBC 4.8 4.5-11.0 X10'3 RBC 4.46 4.00-5.20 X10'6 Hgb 12.8 12.0-16.0 G/DL Hct 39.5 36.0-46.0 % MCV 88.6 80.0-100.0 FL MCH 28.7 27.0-31.0 PG MCHC 32.4 31.0-37.0 G/DL Platelet 163 150-400 X10'3 RDW-SD 44.5 35.0-49.0 FL RDW-CV 13.7 12.2-15.6 % MPV 10.8 9.2-12.0 FL Review Auto Diff Conf WBC Auto Diff--62022 Reviewed date:03/10/2025 11:15:50 AM Interpretation: Performing Lab: Notes/Report: Added by Discern Rules Neutro Auto% 48.1 40.0-70.0 % Lymph Auto% 40.8 22.0-44.0 % Rabun Auto% 7.5 3.0-7.0 % Eos Auto% 2.1 2.0-4.0 % Baso Auto% 1.3 0.0-1.0 % NRBC% .00 .00-.20 /100 intact WBC's Neutro Abs 2.31 .80-7.70 Absolute Neutrophil Count 2310 Lymph Abs 1.96 .10-4.10 Rabun Abs .36 .20-1.00 Eos Abs .10 .00-.40 Baso Abs .06 .00-.20 NRBC# .00 .00-.20 X10'3 Imm Gran Abs .01 .00-.10 Imm Gran% .2 .0-.4 % Chest 1V Reviewed date:03/10/2025 11:15:56 AM Interpretation: Performing Lab: Notes/Report: [email or web address]=[id number]&org=iSite Chest 1V Reviewed date:03/10/2025 11:15:50 AM Interpretation: Performing Lab: Notes/Report: See Below For Report Chest 1V 03/09/2025 07:21:41 called rpt to rn Read See Below For Report Reason For Referral Reason evaluation for possi ble treatment Diagnosis 1 Spondylosis without myelopathy or radiculopathy, cervical region (M47.812) Diagnosis 2 Spinal stenosis, cer vical region (M48.02) Diagnosis 3 Cervicalgia (M54.2) Referring Provider First Name Thanh Referring Provider Last Name Rene Referring Provider Speciality Pain Medic ine Referred Organization [facility] Referred Provider Reagan Webber Referred Address [address],[place],[address], Referred Provider Specialty Intervention al Pain Medicine General Notes Melanie Rosario 11:58:52 AM >mailed npp, patient is scheduled Referral Priority Routine Medications Medication SIG (Take, Route, Frequency, Duration) Notes Start Date End Date Status Plavix 75 MG 1 tablet Orally Once a day for 90 days 04/25/2025 Active Losartan Potassium 50 MG TAKE 1 TABLET EVERY DAY Active HYDROcodone-Acetaminophen 5-325 MG 1 tablet as needed Orally every 6 hrs Active Aspirin 81 81 MG 1 tablet Orally Once a day for 30 day(s) 04/19/2025 05/19/2025 Active dilTIAZem HCl ER 120 MG TAKE 1 CAPSULE EVERY DAY Active Social History Tobacco Use: Social History Observation Description Date Details (start date - stop date) Never Smoker NA - NA Alcohol Screen (Audit-C) Question Answer Notes Did you have a drink containing alcohol in the p ast year? No Points 0 Interpretation Negative Tobacco Control (Standard) Question Answer Notes Tobacco use: Nonsmoker Section Notes: denies alcohol admits caffeine denies alcohol admits caffeine denies alcohol admits caffeine denies alcohol admits caffeine denies alcohol admits caffeine denies alcohol admits caffeine denies alcohol admits caffeine Problems Problem Type SNOMED Code ICD Code Onset Dates Problem Status W/U Status Risk Notes Problem Hypokalemia (41786639) Hypokalemia (E87.6) Active confirmed Problem [id number] Hypertensive heart disease with heart failure (I11.0) Active confirmed Problem 027737602 Spondylosis without myelopathy or radiculopathy, cervical region (M47.812) Active confirmed Problem 65044060 Spinal stenosis, cervical region (M48.02) Active confirmed Problem 00033595 Cervicalgia (M54.2) Active confirmed Problem Atrial fibrillation (49564918) Atrial fibrillation (I48.91) Active confirmed Problem Cardiac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
--- OUTSIDE RECORDS SUMMARY | 2025-04-30 11:48 | XMS_ITS | Encounter Summary ---
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
--- OUTSIDE RECORDS SUMMARY | 2025-04-30 11:48 | XMS_ITS | Encounter Summary ---
Author Organization [facility] Address [address] [place] [address] Care Team Providers Care Primary Special Education Teacher Name Role Phone Emery Mckenzie MD, Marc Haney Primary Care Provider Encounter Details Date Type Department Care Team (Latest Contact Info) Description 11/27/2000 Outpatient Historical [facility] Jacqui Ocasio MD NO ADDRESS ON FILE Other and unspecified malignant neoplasm of skin of other and unspecified parts of face (Primary Dx) Social History Tobacco Use Types Packs/Day Years Used Date Smoking Tobacco: Never Assessed Comments Unknown Sex and Gender Information Value Date Recorded Sex Assigned at Not on file 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
--- OUTSIDE RECORDS SUMMARY | 2025-04-30 11:48 | XMS_ITS | Encounter Summary ---
Author Organization [facility] Address [address] [place] [address] Care Team Providers Care Balloon Artist Name Role Phone Emery Mckenzie MD, Marc Haney Primary Care Provider Encounter Details Date Type Department Care Team (Latest Contact Info) Description 11/20/1998 Outpatient Historical [facility] Ramses Noble NO ADDRESS ON FILE Pneumonia, organism unspecified(486) (Primary Dx) Social History Tobacco Use Types Packs/Day Years Used Date Smoking Tobacco: Never Assessed Comments Unknown Sex and Gender Information Value Date Recorded Sex Assigned at Not on file 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
--- OUTSIDE RECORDS SUMMARY | 2025-04-30 11:48 | XMS_ITS | Encounter Summary ---
Author Organization [employer] [facility] Address [address] [place] [address] Care Team Providers Care Mental Health Aide Name Role Phone Emery Mckenzie MD, Marc Haney Primary Care Provider Encounter Details Date Type Department Care Team (Latest Contact Info) Description 03/29/2001 Outpatient Historical HIS [facility] Ramses Noble NO ADDRESS ON FILE Pain in joint, lower leg (Primary Dx); Injury, other and unspecified, knee, leg, ankle, and foot Social History Tobacco Use Types Packs/Day Years Used Date Smoking Tobacco: Never Assessed Comments Unknown Sex and Gender Information Value Date Recorded Sex Assigned at Not on file 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
--- OUTSIDE RECORDS SUMMARY | 2025-04-30 11:48 | XMS_ITS | Encounter Summary ---
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) Social History Tobacco Use Types Packs/Day Years Used Date Smoking Tobacco: Never Assessed Comments Unknown Sex and Gender Information Value Date Recorded Sex Assigned at Not on file 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
--- OUTSIDE RECORDS SUMMARY | 2025-04-30 11:48 | XMS_ITS | Encounter Summary ---
Author Organization [facility] Address [address] [place] [address] Care Team Providers Care Public Health Aides Teacher Name Role Phone Emery Mckenzie MD, Marc Haney Primary Care Provider Encounter Details Date Type Department Care Team (Latest Contact Info) Description 10/11/1999 Outpatient Historical [facility] Jacqui Ocasio MD NO ADDRESS ON FILE Other specified disorder of breast (Primary Dx) Social History Tobacco Use Types Packs/Day Years Used Date Smoking Tobacco: Never Assessed Comments Unknown Sex and Gender Information Value Date Recorded Sex Assigned at Not on file 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
--- OUTSIDE RECORDS SUMMARY | 2025-04-30 11:48 | XMS_ITS | Encounter Summary ---
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 (Primary Dx) Social History Tobacco Use Types Packs/Day Years Used Date Smoking Tobacco: Never Assessed Comments Unknown Sex and Gender Information Value Date Recorded Sex Assigned at Not on file 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
--- OUTSIDE RECORDS SUMMARY | 2025-04-30 11:48 | XMS_ITS | Encounter Summary ---
Author Organization [employer] [facility] Address [address] [place] [address] Care Team Providers Care Bioinformatician Name Role Phone Emery Mckenzie MD, Marc Haney Primary Care Provider Encounter Details Date Type Department Care Team (Latest Contact Info) Description 08/05/1999 Outpatient Historical HIS [facility] Ramses Noble NO ADDRESS ON FILE Labyrinthitis, unspecified (Primary Dx); Cardiac dysrhythmia, unspecified; Other screening breast examination; Screening for malignant neoplasm of the rectum Social History Tobacco Use Types Packs/Day Years Used Date Smoking Tobacco: Never Assessed Comments Unknown Sex and Gender Information Value Date Recorded Sex Assigned at Not on file 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
--- OUTSIDE RECORDS SUMMARY | 2025-04-30 11:48 | XMS_ITS | Encounter Summary ---
Author Organization [facility] Address [address] [place] [address] Care Team Providers Care Bar Useful Or Busser Name Role Phone Emery Mckenzie MD, Marc Haney Primary Care Provider Encounter Details Date Type Department Care Team (Latest Contact Info) Description 12/23/2001 Outpatient Historical [facility] Marc Land Jr., MD [address] [place] [address] ORTHOSTATIC HYPOTENSION (Primary Dx); DEPRESSIVE DISORDER NEC Social History Tobacco Use Types Packs/Day Years Used Date Smoking Tobacco: Never Assessed Comments Unknown Sex and Gender Information Value Date Recorded Sex Assigned at Not on file 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
--- OUTSIDE RECORDS SUMMARY | 2025-04-30 11:48 | XMS_ITS | Encounter Summary ---
Author Organization [facility] Address [address] [place] [address] Care Team Providers Care Disease Intervention Specialist Name Role Phone Emery Mckenzie MD, Marc Haney Primary Care Provider Encounter Details Date Type Department Care Team (Latest Contact Info) Description 01/07/2002 Outpatient Historical [facility] Marc Land Jr., MD [address] [place] [address] SYNCOPE AND COLLAPSE (Primary Dx) Social History Tobacco Use Types Packs/Day Years Used Date Smoking Tobacco: Never Assessed Comments Unknown Sex and Gender Information Value Date Recorded Sex Assigned at Not on file 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
--- OUTSIDE RECORDS SUMMARY | 2025-04-30 11:48 | XMS_ITS | Clinical Summary ---
Author Organization [facility] Address [address] [place] [address] Care Team Providers Care Pedodontist Name Role Phone Emery Mckenzie MD, Marc Haney Primary Care Provider Allergies Active Allergy Reactions Criticality Noted Date Comments Citalopram Itching High 05/30/2020 Medications losartan (COZAAR) 50 mg tablet TAKE 1 TABLET BY MOUTH ONCE DAILY 0 Active OTHER STOP ALL VITAMINS AND SUPPLEMENTS 5 DAYS BEFORE SURGERY UNLESS OTHERWISE INSTRUCTED Active Miscellaneous Medical Supply Hospital bed 1 Each 0 Active Active Problems Problem Noted Date Diagnosed Date RIGHT TKA (09/25/2020) 09/26/2020 Preoperative general physical examination 2019 Essential hypertension 09/11/2020 Primary osteoarthritis of right knee 09/11/2020 Hyponatremia 09/11/2020 Tibialis anterior tendinitis-R. 05/20/2013 Arch pain-R. 10/12/2012 Sinus tarsi pain, CLEMENCIA. 08/17/2012 Tibialis posterior tendinitis, R. 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 04/29/2012 DJD, mild, medial midfoot articulations, R. 0702/2012 Calcaneal spur; mild inferio r and posterior-L, mild-moderate posterior-R. 04/29/2012 Contracted digits, 2-3, L > R. 04/29/2012 Overview (04/29/2012): V-spacing ELISABETH on CPAP Resolved Problems Problem Noted Date Diagnosed Date Resolved Date Tibialis anterior tendinitis, R. 08/17/2012 07/20/2013 Family History Medical History Relation Name Comments Heart Disease Brother 1 heart transpla nt Heart Disease Brother 2 Respiratory Disease Brother 2 Respiratory Disease Brother 3 Respiratory Disease Father emphysem ia Cancer Mother Liver CA Arthritis-osteo Son 1 Asthma Son 2 Healthy Son 3 Relation Name Status Comments Brother 1 Alive Brother 2 Brother 3 Alive Father Mother Son 1 Alive Son 2 Alive Son 3 Alive Social History Tobacco Use Types Packs/Day Years Used Date Smoking Tobacco: Never Smokeless Tobacco: Never Alcohol Use Standard Drinks/Week Comments No 0 (1 standard drink = 0.6 oz pur e alcohol) Comments No Sex and Gender Information Value Date Recorded Sex Assigned at Not on file Legal Sex Female 3:15 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 SUPPORT 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 Gender Identity Not on file Sexual Orientation Not on file Last Filed Vital Signs Vital Sign Reading Time Taken Comments Blood Pressure 119/79 12/19/2020 3:26 PM PRODUCT SUPPORT SALES 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 Pulse 69 12/19/2020 3:26 PM PRODUCT SUPPORT SALES 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 Temperature 36.7 C (98 F) 09/26/2020 12:27 PM PRODUCT SUPPORT SALES 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 Respiratory Rate 17 09/26/2020 12:27 PM PRODUCT SUPPORT SALES 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 Oxygen Saturation 99% 09/26/2020 12:27 PM PRODUCT SUPPORT SALES 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 Inhaled Oxygen Concentration - - Weight 74.4 kg (164 lb) 12/19/2020 3:26 PM PRODUCT SUPPORT SALES 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 Height 165.1 cm (5' 5 ) 12/19/2020 3:26 PM PRODUCT SUPPORT SALES 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 Body Mass Index 27.29 12/19/2020 3:26 PM PRODUCT SUPPORT SALES 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 Plan of Treatment Health Maintenance Due Date Last Done Comments DTAP/TDAP/TD VACCINES (1 - Tdap) 1964 PNEUMOCOCCAL VACCINE 50+ YEARS (1 of 1 - PCV) 11/28/18 96 ZOSTER VACCINE (1 of 2) 1995 RSV VACCINE (60+ or ) (1 - 1-dose 75+ series) 2020 OSTEOPOROSIS SCREENING 01/11/2024 01/10/2019 INFLUENZA VACCINE (#1) 2025 Medical Devices Implanted Type Area Hand Booked Folder And Stitcher Device Identifier Shelf Expiration Date Model / Serial / Lot Simplex Hi Viscosity Gent 6195-1-010 - [id number] Implanted:Qty: 1 on 09/25/2020 by Jann Araya III, MD at [facility] Cement Right: Knee [employer] [id number] 09/24/2021 6195-1-010 / / [id number] Simplex Hi Viscosity Gent 6195-1-010 - [id number] Implanted:Qty: 1 on 09/25/2020 by Jann Araya III, MD at [facility] Cement Right: Knee [employer] [id number] 09/24/2021 6195-1-010 / / [id number] Insert Attune Fb Ps Sz6 10mm 1516-40-610 - [id number] Implanted:Qty: 1 on 09/25/2020 by Jann Araya III, MD at [facility] Knee Right: Knee [employer] [id number] 10/25/2024 [id number] / / [id number] Comp Tib Attune Fb Cmnt Sz5 1506-70-005 - [id number] Implanted:Qty: 1 on 09/25/2020 by Jann Araya III, MD at [facility] Knee Right: Knee [employer] [id number] 06/25/2030 [id number] / / [id number] Comp Fem Attune Ps Cmnt Sz6 1504-10-226 - [id number] Implanted:Qty: 1 on 09/25/2020 by Jann Araya III, MD at [facility] Knee Right: Knee [employer] [id number] 07/25/2030 [id number] / / [id number] Patella Attune Marjan 32mm 1518-10-032 - [id number] Implanted:Qty: 1 on 09/25/2020 by Jann Araya III, MD at [facility] Knee Right: Knee [employer] [id number] 07/25/2025 [id number] / / [id number] Insurance MEDICARE PART A AND B [facility] [place] [id number] RX [employer] PLANS (INTERNAL) [facility] Medicare Part D Advance Directives For more information, please contact: [phone] * Full Code (Latest Code Status on File) Date Activated Date Inactivated Comments 09/25/2020 4:52 PM 09/26/2020 5:03 PM * Full Code Date Activated Date Inactivated Comments 09/25/2020 9:08 AM 09/25/2020 4:52 PM Care Teams Pedodontist Relationship Specialty Start Date End Date Marc Land Jr., MD [address] [place] [phone] PCP - General Family Practice 04/29/12
--- OUTSIDE RECORDS SUMMARY | 2025-04-30 11:48 | XMS_ITS | Encounter Summary ---
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 (Primary Dx) Social History Tobacco Use Types Packs/Day Years Used Date Smoking Tobacco: Never Assessed Comments Unknown Sex and Gender Information Value Date Recorded Sex Assigned at Not on file 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
--- OUTSIDE RECORDS SUMMARY | 2025-04-30 11:48 | XMS_ITS | Encounter Summary ---
Author Organization [employer] [facility] Address [address] [place] [address] Care Team Providers Care Manganese Wheeler Name Role Phone Emery Mckenzie MD, Marc Haney Primary Care Provider Encounter Details Date Type Department Care Team (Latest Contact Info) Description 02/07/2000 Outpatient Historical [facility] Marc Land Jr., MD [address] [place] [phone] Other malaise and fatigue (Primary Dx) Social History Tobacco Use Types Packs/Day Years Used Date Smoking Tobacco: Never Assessed Comments Unknown Sex and Gender Information Value Date Recorded Sex Assigned at Not on file 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
--- OUTSIDE RECORDS SUMMARY | 2025-04-30 11:48 | XMS_ITS | Encounter Summary ---
Author Organization 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 (Primary Dx) Social History Tobacco Use Types Packs/Day Years Used Date Smoking Tobacco: Never Assessed Comments Unknown Sex and Gender Information Value Date Recorded Sex Assigned at Not on file 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
--- OUTSIDE RECORDS SUMMARY | 2025-04-30 11:48 | XMS_ITS | Encounter Summary ---
Author Organization [facility] Address [address] [place] [address] Care Team Providers Care Environmental Services Floor Tech Name Role Phone Emery Mckenzie MD, Marc Haney Primary Care Provider Encounter Details Date Type Department Care Team (Latest Contact Info) Description 05/27/2000 Outpatient Historical HIS [facility] Ramses Noble NO ADDRESS ON FILE Allergic rhinitis, cause unspecified (Primary Dx); Unspecified otitis media Social History Tobacco Use Types Packs/Day Years Used Date Smoking Tobacco: Never Assessed Comments Unknown Sex and Gender Information Value Date Recorded Sex Assigned at Not on file 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
--- OUTSIDE RECORDS SUMMARY | 2025-04-30 11:48 | XMS_ITS | Encounter Summary ---
Author Organization [facility] Address [address] [place] [address] Care Team Providers Care Specimen Processor Name Role Phone Emery Mckenzie MD, Marc Haney Primary Care Provider Reason for Referral * Outpatient Services (Routine) - Closed Specialty Diagnoses / Procedures Referred By Contac t Referred To Contact Diagnoses Varicose veins of lower extremities with other complications Procedures US VENOUS DOPPLER LEG BILATERAL Getachew Escobar MD [address] [place] [phone] Phone: tel: fax: Referral ID Status Reason Start Date Expiration Date Visits Re quested Visits Authorized [id number] Closed 06/16/2012 06/16/2013 1 1 Encounter Details Date Type Department Care Team (Latest Contact Info) Description 06/16/2012 Ancillary Orders [facility] [place] [address] [place] [phone] Getachew Escobar MD [address] [place] [address] Varicose veins of lower extremities with other complications (Primary Dx) Social History Tobacco Use Types Packs/Day Years Used Date Smoking Tobacco: Never Smokeless Tobacco: Never Alcohol Use Standard Drinks/Week Comments No 0 (1 standard drink = 0.6 oz pur e alcohol) Comments Unknown Sex and Gender Information Value Date Recorded Sex Assigned at Not on file Legal Sex Female 3:15 AM [employer]AK[employer] SUPERVIS[employer] Gender Identity Not on file Sexual Orientation Not on file documented as of this encounter Plan of Treatment Not on file documented as of this encounter Results * US VENOUS DOPPLER LEG BILATERAL (07/05/2012 12:22 PM CDT) Anatomical Region Laterality Modality Lower Extremity Ultrasound 07/05/2012 11:4 3 AM CDT Narrative 07/05/2012 5:56 PM CDT [facility] [address] [place] [id number] Noninvasive Vascular Lab Lower Extremity Vein mapping for Reflux Patient: Kalli Castaneda Study ID: US VENOUS DOPPLE Gender: F : 1945 Age: 66 Room: Height: Weight: BSA: Pt status: Outpatient Study Date: 07/05/2012 Study Time: 11:43 AM BSA: Ordering: Getachew Escobar MD, FACS, DIGNA Interpreting:Getachew Escobar MD, FACS, DIGNA Operations Supervisor Chemical Cleaning: Gurinder Napier RVT Indications: 454.9 Varicose veins. Summary Impression: 1. There is no appreciable reflux in the right lower extremity. 2. In the left lower extremity there is reflux consistent with venous insufficiency involving the popliteal vein. 3. There is no evidence of deep vein thrombosis or superficial venous thrombophlebitis in either lower extremity. Study data: Lower extremity vein mapping for reflux. Location: Vascular laboratory. Patient status: Outpatient. Study status: Routine. Procedure: A vascular evaluation was performed. Image quality was good. Exam quality was good. Vein mapping: - Proximal right greater saphenous - No reflux 4.70mm Depth: 20.90mm - Mid right greater saphenous - 3.10mm Depth: 16.20mm - Distal right greater saphenous - 4.70mm Depth: 20.60mm - Right greater saphenous (calf) - 2.50mm Depth: 17.70mm - Proximal right lesser saphenous - No reflux 1.90mm Depth: 18.70mm - Mid right lesser saphenous - 1.30mm Depth: 24.00mm - Proximal left greater saphenous - No reflux 4.80mm Depth: 18.00mm - Mid left greater saphenous - 3.70mm Depth: 15.80mm - Distal left greater saphenous - 3.80mm Depth: 23.30mm - Left greater saphenous (calf) - 2.10mm Depth: 22.20mm - Proximal left lesser saphenous - No reflux 2.10mm Depth: 16.10mm - Mid left lesser saphenous - 1.20mm Depth: 23.70mm Physical exam: In the right and left lower extremities compressibility and augmentation are demonstrated in the deep and superificial venous systems. Valsalva maneuvers are performed with the patient in Reverse Trendelenburg and prone to assess reflux. [facility] is accredited with the [employer] Commission for the Accreditation of Vascular Laboratories (ICAVL) Prepared and Electronically Authenticated Getachew Escobar MD, FACS, DIGNA Confirmed 07/05/2012 17:56 Procedure Note Getachew Escobar MD - 07/05/2012 [facility] [address] [place] [address] [place] [id number] Noninvasive Vascular Lab Lower Extremity Vein mapping for Reflux Patient: Kalli Castaneda Study ID: US VENOUS DOPPLE Gender: F : 1945 Age: 66 Room: Height: Weight: BSA: Pt status: Outpatient Study Date: 07/05/2012 Study Time: 11:43 AM BSA: Ordering: Getachew Escobar MD, FACS, JOSH Interpreting:Getachew Escobar MD, FACS, [facility] Operations Supervisor Chemical Cleaning: Gurinder Napier RVT Indications: 454.9 Varicose veins. Summary Impression: 1. There is no appreciable reflux in the right lower extremity. 2. In the left lower extremity there is reflux consistent with venous insufficiency involving the popliteal vein. 3. There is no evidence of deep vein thrombosis or superficial venous thrombophlebitis in either lower extremity. Study data: Lower extremity vein mapping for reflux. Location: Vascular laboratory. Patient status: Outpatient. Study status: Routine. Procedure: A vascular evaluation was performed. Image quality was good. Exam quality was good. Vein mapping: - Proximal right greater saphenous - No reflux 4.70mm Depth: 20.90mm - Mid right greater saphenous - 3.10mm Depth: 16.20mm - Distal right greater saphenous - 4.70mm Depth: 20.60mm - Right greater saphenous (calf) - 2.50mm Depth: 17.70mm - Proximal right lesser saphenous - No reflux 1.90mm Depth: 18.70mm - Mid right lesser saphenous - 1.30mm Depth: 24.00mm - Proximal left greater saphenous - No reflux 4.80mm Depth: 18.00mm - Mid left greater saphenous - 3.70mm Depth: 15.80mm - Distal left greater saphenous - 3.80mm Depth: 23.30mm - Left greater saphenous (calf) - 2.10mm Depth: 22.20mm - Proximal left lesser saphenous - No reflux 2.10mm Depth: 16.10mm - Mid left lesser saphenous - 1.20mm Depth: 23.70mm Physical exam: In the right and left lower extremities compressibility and augmentation are demonstrated in the deep and superificial venous systems. Valsalva maneuvers are performed with the patient in Reverse Trendelenburg and prone to assess reflux. [facility] is accredited with the [facility] for the Accreditation of Vascular Laboratories (ICAVL) Prepared and Electronically Authenticated Getachew Escobar MD FACS, RPVI Confirmed 07/05/2012 17:56 us Getachew Escobar MD ORDERABLES Final Result documented in this encounter Visit Diagnoses Diagnosis Varicose veins of lower extremities with other complications- Primary documented in this encounter Care Teams Specimen Processor Relationship Specialty Start Date End Date Marc Land Jr., MD [address] [place] [phone] PCP - General Family Practice 04/29/12 documented as of this encounter
--- OUTSIDE RECORDS SUMMARY | 2025-04-30 11:49 | XMS_ITS | Patient Health Record ---
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 Role Phone Fabian Fernanda Primary Care Provider UnavailAMOL Morris Unavailable [phone] DERRICK LU Unavailable [phone] SERGIO SPEARS Unavailable [phone] Derrick Pearson Unavailable [phone] Allergies Allergen (clinical drug ingredient) Drug/Non Drug Allergy documented on EMR Reaction Allergy Type Onset Date Status Latex Latex allergy Allergy Active lisinopril Lisinopril cough Drug Allergy Activ e nitrofurantoin Nitrofurantoin rash Drug Allergy Active Results Component Value Reference Range Notes Urinalysis, Routine Reviewed date:07/04/2024 01:33:23 PM Interpretation: Performing Lab: Notes/Report: Urine-Color yellow Appearance clear Glucose - Bilirubin - Ketones - Specific [place] 1.010 Occult Blood - pH 7.0 Urine Protein - Urobilinogen,Semi-Qn - Nitrite, Urine - WBC Esterase - Urinalysis Gross Exam - UTI Pathogen Panel PCR Reviewed date:11/16/2024 02:12:20 PM Interpretation: Performing Lab: Notes/Report: UTI Resistance Panel PCR Reviewed date:11/16/2024 02:13:09 PM Interpretation: Performing Lab: Notes/Report: Urinalysis, Routine Reviewed date:08/08/2024 11:35:01 AM Interpretation: Performing Lab: Notes/Report: Urine-Color yellow Appearance clear Glucose - Bilirubin - Ketones - Specific [place] 1.010 Occult Blood - pH 7.5 Urine Protein - Urobilinogen,Semi-Qn - Nitrite, Urine - WBC Esterase trace Urinalysis, Routine Reviewed date:09/27/2024 11:43:12 AM Interpretation: Performing Lab: Notes/Report: Urine-Color yellow Appearance cloudy Glucose - Bilirubin - Ketones trace Specific [place] 1.015 Occult Blood - pH 6.0 Urine Protein trace Urobilinogen,Semi-Qn - Nitrite, Urine pos WBC Esterase trace Urinalysis, Routine Reviewed date:11/15/2024 11:33:49 AM Interpretation: Performing Lab: Notes/Report: Urine-Color YELLOW Appearance cloudy Glucose - Bilirubin - Ketones - Specific [place] 1.010 Occult Blood +- pH 6.0 Urine Protein - Urobilinogen,Semi-Qn - Nitrite, Urine + WBC Esterase 2+ Urinalysis, Routine Reviewed date:12/21/2024 03:16:14 PM Interpretation: Performing Lab: Notes/Report: Urine-Color yellow Appearance clear Glucose - Bilirubin - Ketones - Specific [place] 1.015 Occult Blood - pH 6.0 Urine Protein - Urobilinogen,Semi-Qn - Nitrite, Urine pos WBC Esterase 2+ UTI Pathogen Panel PCR Reviewed date:03/30/2025 12:42:16 PM Interpretation: Performing Lab: Notes/Report: Urinalysis, Routine Reviewed date:03/29/2025 11:14:53 AM Interpretation: Performing Lab: Notes/Report: Urine-Color yellow Appearance cloudy Glucose - Bilirubin - Ketones - Specific [place] 1.005 Occult Blood - pH 6.5 Urine Protein - Urobilinogen,Semi-Qn - Nitrite, Urine - WBC Esterase 2+ Urinalysis Gross Exam - Gx - Recurrent Persistent Co mplicated UTI Reviewed date:09/29/2024 10:25:17 AM Interpretation: Performing Lab:, [id number] Notes/Report: PatientName: : Gender: PatientRelation: PatientAddress: , , , InsuranceName: InsuranceCode: Test Result: Guidance 7.0, Voided Urine, UTI Surgical, Test Result: PATHOGENIC DNA DETECTED#A*F UTIAbnormalFlag: Guidance 7.0, Voided Urine, UTI Surgical, UTIAbnormalFlag: A Urinalysis, Routine Reviewed date:05/25/2024 11:19:44 AM Interpretation: Performing Lab: Notes/Report: Urine-Color yellow Appearance clear Glucose - Bilirubin - Ketones - Specific [place] 1.015 Occult Blood - pH 6.0 Urine Protein - Urobilinogen,Semi-Qn - Nitrite, Urine - WBC Esterase - Reason For Referral No Information Medications Medication SIG (Take, Route, Frequency, Duration) Notes Start Date End Date Status Spironolactone Not-T aking Fosfomycin Tromethamine 3 GM as directed Orally every 10 days for 30 days to be started after completion of Levofloxacin 12/21/2024 12/16/2025 Not-Taking Estradiol 0.1 MG/GM 1g (pea sized amount ) Vaginal at bedtime 3x per week x 8 weeks, then once weekly for maintenance for 90 days 09/27/2024 Not-Taking Losartan Potassium 50 MG 1 tablet Orally Once a day 03/23/2024 Active dilTIAZem HCl 120 MG as directed Orally daily 03/23/2024 Active HYDROcodone-Acetaminophe n 5-325 MG 1 tablet as needed Orally 03/23/2024 Active Social History Tobacco Use: Social History Observation Description Date Details (start date - stop date) Never Smoker NA - NA Tobacco Control (Standard) Question Answer Notes Tobacco use: Nonsmoker Problems Problem Type SNOMED Code ICD Code Onset Dates Problem Status W/U Status Risk Notes Problem 79760439 Essential (primary) hypertension (I10) Active confirmed Problem Atrophic vaginitis (29436206) Atrophic vaginitis (N95.2) Active confirmed Problem Chronic cystitis (15874667) Chronic cystitis (N30.20) Active confirmed Problem Overactive urinary bladder (disorder) (232485160) OAB (overactive bladder) (N32.81) Active confirmed Problem Hysterectomy (661714327) S/P total hysterectomy (Z90.710) Active confirmed Vital Signs Heart Rate 68 /min 12/21/2024 Temperature 97.6 degrees Fahrenheit 07/04/2024 Blood pressure diastolic 76 mm Hg 12/21/2024 Height-cm 165.1 cm 03/29/2025 Weight-kg 70.31 kg 03/29/2025 Height 65 in 03/29/2025 Blood pressure systolic 110 mm Hg 12/21/2024 Weight 155 lbs 03/29/2025 BMI 25.79 kg/m2 03/29/2025 Procedures Procedure Date Ordered Date Performed Result Body Sit e Bladder Scan 07/04/2024 07/04/2024 N/A Bladder Scan 08/08/2024 08/08/2024 N/A Bladder Scan 09/27/2024 09/27/2024 PVR 13ML Bladder Scan 03/29/2025 03/29/2025 N/A Encounters Encounter Location Date Provider Diagnosis [facility] [address] [place] [address] 05/25/2024 SERGIO SPEARS Chronic cystitis N30.20 ; Chronic trigonitis N30.30 and OAB (overactive bladder) N32.81 [facility] [address] [place] [address] 07/04/2024 AMOL SOLO OAB (overactive bladder) N32.81 ; Vaginal irritation N89.8 ; Chronic trigonitis N30.30 and Chronic cystitis N30.20 [facility] [address] [place] [address] 08/08/2024 AMOL SOLO Pelvic pressure in female R10.2 ; Urinary urgency R39.15 ; Leukocytes in urine R82.998 ; OAB (overactive bladder) N32.81 ; Chronic trigonitis N30.30 and Chronic cystitis N30.20 [facility] [address] [place] [address] 09/27/2024 AMOL SOLO Atrophic vaginitis N95.2 ; Chronic constipation K59.09 ; Abnormal urinalysis R82.90 ; Chronic trigonitis N30.30 ; Chronic cystitis N30.20 ; OAB (overactive bladder) N32.81 and Urinary urgency R39.15 [facility] [address] [place] [address] 11/15/2024 AMOL SOLO Chronic cystitis N30.20 ; Urinary urgency R39.15 ; Atrophic vaginitis N95.2 ; Chronic trigonitis N30.30 and OAB (overactive bladder) N32.81 [facility] [address] [place] [address] 12/21/2024 DERRICK LU OAB (overactive bladder) N32.81 ; Chronic cystitis N30.20 ; Urinary urgency R39.15 ; Atrophic vaginitis N95.2 and Chronic trigonitis N30.30 [facility] [address] [facility] [place] [address] 03/29/2025 Derrick Pearson OAB (overactive bladder) N32.81 ; Chronic cystitis N30.20 ; Urinary urgency R39.15 ; Atrophic vaginitis N95.2 and Chronic trigonitis N30.30 [facility] [address] [facility] [place] [address] 05/03/2024 DERRICK LU [facility] [address] [facility] [place] [address] 08/16/2024 AMOL REANO [facility] [address] [facility] [place] [address] 08/17/2024 AMOL REANO [facility] [address] [facility] [place] [address] 09/28/2024 AMOL REANO [facility] [address] [facility] [place] [address] 09/28/2024 AMOL REANO [facility] [address] [facility] [place] [address] 09/29/2024 AMOL REANO [facility] [address] [facility] [place] [address] 11/16/2024 AMOL REANO [facility] [address] [facility] [place] [address] 02/28/2025 AMOL REANO Assessments Encounter Date Diagnosis (ICD Code) Assessment Notes Treatment Notes Treatment Clinical Notes Section Notes 09/27/2024 Atrophic vaginitis (ICD-10 - N95.2) 09/27/2024 Chronic constipation (ICD-10 - K59.09) 03/29/2025 OAB (overactive bladder) (ICD-10 - N32.81) This is a complicated urologic patient with history of severe trigonitis and recalcitrant chronic cystitis. She had fulguration of trigonitis last year there were mild trigonitis findings on most recent cystoscopy. I do not think she needs surgical intervention at this point given this and current symptoms, and she reports to be doing well. Will send UA for PCR testing, and treat further if indicated based on patient request. Otherwise, patient may safely transition f/u to 6 months with UA/PVR. She will hold fosfomycin, but understands we may restart if indicated. For now, and through shared decision making we are in agreement with no further workup or intervention at this time with care plan, aside from what was mentioned. Patient has no other voiced concerns or questions. Patient satisfied with plan. 12/21/2024 OAB (overactive bladder) (ICD-10 - N32.81) This is a complicated urologic patient with severe trigonitis history and recalcitrant chronic cystitis. She had fulguration of trigonitis last year and is doing better on cystoscopy with much less purulence vesicles and trigonitis but some acute inflammatory changes within the bladder. Based upon her last PCR she should benefit from a 1 week course of Levaquin followed by fosfomycin every 10 days suppression. We have also discussed intravesical gentamicin or IV antibiotics but this is prohibited given her living distance. I do not think she needs surgical intervention at this point given cystoscopy findings but hopefully we can get her doing better with chronic fosfomycin suppression. Return in 3 to 4 months for reassessment with urinalysis and PVR or sooner with breakthrough infections. Following cystoscopy, we have spent over 20 minutes in further consultation and treatment planning with greater than 50% of that time in direct [id number] discussion. 11/15/2024 Urinary urgency (ICD-10 - R39.15) 11/15/2024 Chronic cystitis (ICD-10 - N30.20) 08/08/2024 Urinary urgency (ICD-10 - R39.15) 08/08/2024 Pelvic pressure in female (ICD-10 - R10.2) 07/04/2024 Vaginal irritation (ICD-10 - N89.8) 07/04/2024 OAB (overactive bladder) (ICD-10 - N32.81) 05/25/2024 Chronic cystitis (ICD-10 - N30.20) Pt doing well s/p fulguration with clear UA and resolutin of bladder pain/dysuria. She is still having bothersome irritative symptoms. Will start vesicare 5mg daily. Dosing and SE reviewed. RTC in 4-6w with UA/PVR or sooner if needed. 08/08/2024 Leukocytes in urine (ICD-10 - R82.998) 05/25/2024 Chronic trigonitis (ICD-10 - N30.30) Pt doing well s/p fulguration with clear UA and resolutin of bladder pain/dysuria. She is still having bothersome irritative symptoms. Will start vesicare 5mg daily. Dosing and SE reviewed. RTC in 4-6w with UA/PVR or sooner if needed. 05/25/2024 OAB (overactive bladder) (ICD-10 - N32.81) Pt doing well s/p fulguration with clear UA and resolutin of bladder pain/dysuria. She is still having bothersome irritative symptoms. Will start vesicare 5mg daily. Dosing and SE reviewed. RTC in 4-6w with UA/PVR or sooner if needed. 07/04/2024 Chronic trigonitis (ICD-10 - N30.30) 11/15/2024 Atrophic vaginitis (ICD-10 - N95.2) 12/21/2024 Chronic cystitis (ICD-10 - N30.20) This is a complicated urologic patient with severe trigonitis history and recalcitrant chronic cystitis. She had fulguration of trigonitis last year and is doing better on cystoscopy with much less purulence vesicles and trigonitis but some acute inflammatory changes within the bladder. Based upon her last PCR she should benefit from a 1 week course of Levaquin followed by fosfomycin every 10 days suppression. We have also discussed intravesical gentamicin or IV antibiotics but this is prohibited given her living distance. I do not think she needs surgical intervention at this point given cystoscopy findings but hopefully we can get her doing better with chronic fosfomycin suppression. Return in 3 to 4 months for reassessment with urinalysis and PVR or sooner with breakthrough infections. Following cystoscopy, we have spent over 20 minutes in further consultation and treatment planning with greater than 50% of that time in direct [id number] discussion. 09/27/2024 Abnormal urinalysis (ICD-10 - R82.90) 03/29/2025 Chronic cystitis (ICD-10 - N30.20) This is a complicated urologic patient with history of severe trigonitis and recalcitrant chronic cystitis. She had fulguration of trigonitis last year there were mild trigonitis findings on most recent cystoscopy. I do not think she needs surgical intervention at this point given this and current symptoms, and she reports to be doing well. Will send UA for PCR testing, and treat further if indicated based on patient request. Otherwise, patient may safely transition f/u to 6 months with UA/PVR. She will hold fosfomycin, but understands we may restart if indicated. For now, and through shared decision making we are in agreement with no further workup or intervention at this time with care plan, aside from what was mentioned. Patient has no other voiced concerns or questions. Patient satisfied with plan. 09/27/2024 Chronic trigonitis (ICD-10 - N30.30) 03/29/2025 Urinary urgency (ICD-10 - R39.15) This is a complicated urologic patient with history of severe trigonitis and recalcitrant chronic cystitis. She had fulguration of trigonitis last year there were mild trigonitis findings on most recent cystoscopy. I do not think she needs surgical intervention at this point given this and current symptoms, and she reports to be doing well. Will send UA for PCR testing, and treat further if indicated based on patient request. Otherwise, patient may safely transition f/u to 6 months with UA/PVR. She will hold fosfomycin, but understands we may restart if indicated. For now, and through shared decision making we are in agreement with no further workup or intervention at this time with care plan, aside from what was mentioned. Patient has no other voiced concerns or questions. Patient satisfied with plan. 12/21/2024 Urinary urgency (ICD-10 - R39.15) This is a complicated urologic patient with severe trigonitis history and recalcitrant chronic cystitis. She had fulguration of trigonitis last year and is doing better on cystoscopy with much less purulence vesicles and trigonitis but some acute inflammatory changes within the bladder. Based upon her last PCR she should benefit from a 1 week course of Levaquin followed by fosfomycin every 10 days suppression. We have also discussed intravesical gentamicin or IV antibiotics but this is prohibited given her living distance. I do not think she needs surgical intervention at this point given cystoscopy findings but hopefully we can get her doing better with chronic fosfomycin suppression. Return in 3 to 4 months for reassessment with urinalysis and PVR or sooner with breakthrough infections. Following cystoscopy, we have spent over 20 minutes in further consultation and treatment planning with greater than 50% of that time in direct [id number] discussion. 08/08/2024 OAB (overactive bladder) (ICD-10 - N32.81) 07/04/2024 Chronic cystitis (ICD-10 - N30.20) 11/15/2024 Chronic trigonitis (ICD-10 - N30.30) 11/15/2024 OAB (overactive bladder) (ICD-10 - N32.81) 08/08/2024 Chronic trigonitis (ICD-10 - N30.30) 12/21/2024 Atrophic vaginitis (ICD-10 - N95.2) This is a complicated urologic patient with severe trigonitis history and recalcitrant chronic cystitis. She had fulguration of trigonitis last year and is doing better on cystoscopy with much less purulence vesicles and trigonitis but some acute inflammatory changes within the bladder. Based upon her last PCR she should benefit from a 1 week course of Levaquin followed by fosfomycin every 10 days suppression. We have also discussed intravesical gentamicin or IV antibiotics but this is prohibited given her living distance. I do not think she needs surgical intervention at this point given cystoscopy findings but hopefully we can get her doing better with chronic fosfomycin suppression. Return in 3 to 4 months for reassessment with urinalysis and PVR or sooner with breakthrough infections. Following cystoscopy, we have spent over 20 minutes in further consultation and treatment planning with greater than 50% of that time in direct [id number]-[id number] discussion. 09/27/2024 Chronic cystitis (ICD-10 - N30.20) 03/29/2025 Atrophic vaginitis (ICD-10 - N95.2) This is a complicated urologic patient with history of severe trigonitis and recalcitrant chronic cystitis. She had fulguration of trigonitis last year there were mild trigonitis findings on most recent cystoscopy. I do not think she needs surgical intervention at this point given this and current symptoms, and she reports to be doing well. Will send UA for PCR testing, and treat further if indicated based on patient request. Otherwise, patient may safely transition f/u to 6 months with UA/PVR. She will hold fosfomycin, but understands we may restart if indicated. For now, and through shared decision making we are in agreement with no further workup or intervention at this time with care plan, aside from what was mentioned. Patient has no other voiced concerns or questions. Patient satisfied with plan. 03/29/2025 Chronic trigonitis (ICD-10 - N30.30) This is a complicated urologic patient with history of severe trigonitis and recalcitrant chronic cystitis. She had fulguration of trigonitis last year there were mild trigonitis findings on most recent cystoscopy. I do not think she needs surgical intervention at this point given this and current symptoms, and she reports to be doing well. Will send UA for PCR testing, and treat further if indicated based on patient request. Otherwise, patient may safely transition f/u to 6 months with UA/PVR. She will hold fosfomycin, but understands we may restart if indicated. For now, and through shared decision making we are in agreement with no further workup or intervention at this time with care plan, aside from what was mentioned. Patient has no other voiced concerns or questions. Patient satisfied with plan. 09/27/2024 OAB (overactive bladder) (ICD-10 - N32.81) 12/21/2024 Chronic trigonitis (ICD-10 - N30.30) This is a complicated urologic patient with severe trigonitis history and recalcitrant chronic cystitis. She had fulguration of trigonitis last year and is doing better on cystoscopy with much less purulence vesicles and trigonitis but some acute inflammatory changes within the bladder. Based upon her last PCR she should benefit from a 1 week course of Levaquin followed by fosfomycin every 10 days suppression. We have also discussed intravesical gentamicin or IV antibiotics but this is prohibited given her living distance. I do not think she needs surgical intervention at this point given cystoscopy findings but hopefully we can get her doing better with chronic fosfomycin suppression. Return in 3 to 4 months for reassessment with urinalysis and PVR or sooner with breakthrough infections. Following cystoscopy, we have spent over 20 minutes in further consultation and treatment planning with greater than 50% of that time in direct [id number]-ik-[id number] discussion. 08/08/2024 Chronic cystitis (ICD-10 - N30.20) 09/27/2024 Urinary urgency (ICD-10 - R39.15) 05/25/2024 Other Pt doing well s/p fulguration with clear UA and resolutin of bladder pain/dysuria. She is still having bothersome irritative symptoms. Will start vesicare 5mg daily. Dosing and SE reviewed. RTC in 4-6w with UA/PVR or sooner if needed. 07/04/2024 Other UA clear, PVR 0ml. She continues to have bothersome frequency, urgency and pelvic pressure. She also has occasional constipation. Stop anticholinergic, which can worsen constipation. Avoid Myrbetriq due to elevated BP. I will give her samples of Gemtesa 75mg samples. Administration and s/e profile reviewed. Encouraged increased water and avoiding bladder irritants. She will RTC in 4-6 weeks with UA/PVR and symptom reassessment. All questions that were asked were answered. Patient satisfied with plan of care. 08/08/2024 Other UA with leukocytes. Send for PCR. This patient has clinical indication for infectious disease testing. Urinalysis performed indicates the need for further sensitive detection by PCR. The patient is at higher risk for UTI complications and is being seen in the urologic setting. The enhanced diagnostic accuracy, identification of possible resistance mutations, and quicker result to better guide antibiotics and prevention infection complications that PCR provides is recommended. I will call with results, treat as indicated and schedule for follow up accordingly. Encouraged her to be strict on intake and avoid all bladder irritants. All questions that were asked were answered. Patient satisfied with plan of care. 09/27/2024 Other Continue probiotic and cranberry. Start vaginal estrogen, administration and s/e profile reviewed and treat her constipation so that she is having QD to QOD easy to pass BM. Urine appears infected again today. I will send urine for PCR today, we will treat with an acute course then a 30 daily suppression course. She will RTC in 6-8 weeks with repeat UA. All questions that were asked were answered. Patient satisfied with plan of care. This patient has clinical indication for infectious disease testing. Urinalysis performed indicates the need for further sensitive detection by PCR. The patient is at higher risk for UTI complications and is being seen in the urologic setting. The enhanced diagnostic accuracy, identification of possible resistance mutations, and quicker result to better guide antibiotics and prevention infection complications that PCR provides is recommended. 11/15/2024 Other UA abnormal. Reviewed most recent culture, Cephalexin was the only suppressive option due to allergies/resist ance, and she had resistance gene so it may not have done a great job. Discussed trying Gent bladder irrigations vs. ID referral vs. cysto. She would like to proceed with repeat cysto, gent bladder irrigations not ideal due to travel. I will repeat PCR today and assess for any other treatment options. She will RTC for next available cytsoscopy with Dr. Lu. Plan Of Treatment Pending Test Test Name Order Date CT Abd & Pelvis W & [place] [id number] 03/23/2024 BUN, Creatinine 03/23/2024 Bladder Scan 03/23/2024 Basic Metabolic Panel 04/19/2024 CBC w/ Auto Diff 04/19/2024 Electrocardiogram, 12 Lead Tracing-[id number] 04/19/2024 Next Appt Details Provider Name:SERGIO CARRASCO NS, 09/28/2025 11:00:00 AM, [address] [place], [address], Insurance Providers Payer Name Payer Address Payer Phone Subscriber Number Group Number Insured Name Patient Relationship to Insured Coverage Start Date Coverage End Date [place] [address] [facility] [place] [id number] Kalli Moreno Self - patient is the insured [facility] [address] [place], [place] [id number] Kalli Moreno Self - patient is the insured Medical (General) History Medical History History ICD Code HTN heart palpitations A fib skin cancer Surgical History Surgery Date(Month/Year) hysterectomy left knee replacement Bladder fulguration 04/26/24 loop recorder placement 03/09/25 Hospitalization History Reason Date(Month/Year) a fib 11/2022 above
--- NOTE | 2025-04-30 11:54 | ECG_ITS ---
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
--- NOTE | 2025-04-30 12:03 | CTR_ITS ---
PROCEDURE INFORMATION: Exam: CTA Chest With Contrast Exam date and time: 04/30/2025 12:55 PM Age: 79 years old Clinical indication: Pain; Chest pressure; Additional info: Cp TECHNIQUE: Imaging protocol: Computed tomographic angiography of the chest with contrast. Exam focused on the arteries. 3D rendering (Not supervised by radiologist): MIP and/or 3D reconstructed images were created by the technologist. Radiation optimization: All CT scans at this facility use at least one of these dose optimization techniques: automated exposure control; mA and/or kV adjustment per patient size (includes targeted exams where dose is matched to clinical indication); or iterative reconstruction. Contrast material: OMNIPAQUE 350; Contrast volume: 69 ml; Contrast route: INTRAVENOUS (IV); COMPARISON: CT angio chest PE protcl [id number] 05/03/2018 9:15 PM RADIATION DOSE METRICS: Total DLP (mGy-cm): 305.19 FINDINGS: Tubes, catheters and devices: A pacemaker device is present, and its leads are in appropriate position. There is an implanted loop recorder in the anterior chest. There is a left atrial appendage occlusion device. Pulmonary arteries: Normal. No pulmonary emboli. Aorta: Unremarkable. No aortic aneurysm. No aortic dissection. Lungs: Unremarkable. No consolidation. No masses. Pleural spaces: Unremarkable. No pneumothorax. No pleural effusion. Heart: There is a small pericardial effusion. Lymph nodes: Unremarkable. No enlarged lymph nodes. Bones/joints: There are mild chronic compression deformities of T7 and T8. Soft tissues: There are bilateral breast implants. CT/CT angio chest PE protcl [id number] IMPRESSION: No acute findings.
--- NOTE | 2025-04-30 12:07 | ED_ITS ---
HPI - SOB/Dyspnea 2 General: Chief Complaint: Shortness of Breath/Dyspnea Stated Complaint: SOB (postop ) Time Seen by Provider: 04/30/25 11:55 Source: patient Mode of arrival: ambulatory Limitations: no limitations History of Present Illness: HPI Narrative: 79-year-old female has a history of A-fi b she had a watchman implant done on Thursday states that since then she has been having some shortness of breath along with some generalized fatigue. She had some mild chest pressure she rates a 2 out of 10 she denies any worse improving factors. Denies any cough or fever. Associated symptoms: Reports chest pain; Deny abdominal pain, fever(s), nausea or vomiting Related Data Home Medications ?Medication ?Instructions ?Recorded ?Confirmed multivitamin 1 tab PO QAM 04/10/21 cholecalciferol (vitamin D3) 10 10 mcg PO DAILY 07/07/23 mcg (400 unit) capsule (Vitamin D3) hydrocodone 5 mg-acetaminophen 325 1 tab PO TID PRN Pa in 04/11/22 07/07/23 mg tablet losartan 100 mg tablet 100 mg PO QAM 04/11/2207/07 L.acidophil-L.casei-B.bifid-B.longum-FOS 1 cap PO MCKAYLA Y 05/25/23 07/07/23 2 billion cell-50 mg capsule (Probiotic Blend) aspirin 325 mg tablet 325 mg PO QPM 05/25/2307/07 diltiazem HCl 120 mg 120 mg PO BEDTIME 05/25/23 0 07/07/23 capsule,extended release 24 hr Previous Rx's ?Medication ?Instructions ?Recorded Custom Molded Orthotics #1 ea 08/05/21 fast form cast to the right #1 ea 04/09/23 Cock up splint #1 ea 05/25/23 diltiazem HCl 60 mg tablet 60 mg PO Q12H #60 tabs 09/25 02/15 (Cardizem) Allergies Allergy/AdvReac Type Severity Reaction Status Date / Time citalopram (From Celexa) Allergy Unknown Verified 03/11/24 19:39 doxycycline Allergy ALGY-Anaphy Verified 04/30/25 11:56 laxis latex Allergy ALGY-Anaphy Verified 04/30/25 11:56 laxis lisinopril Allergy Unknown Verified 03/11/24 19:39 Review of Systems 2 Const: Denies: fever(s), chills, body aches or change in appetite ENMT: Denies: throat pain or dental pain Card: Reports: chest pain Resp: Reports: dyspnea GI: Denies: abdominal pain, nausea, vomiting or diarrhea Musc: Denies: neck pain or back pain Skin/Breast: Denies: rash Neuro: Denies: headache(s) PFSH ED 2 PFSH: Medical History Heart palpitations History of nonmelanoma skin cancer Accelerated essential hypertension MCL sprain of right knee Surgical History H/O: hysterectomy History of left knee replacement Family History Other Hypertension Stroke Social History Smoking and tobacco/nicotine status: never used tobacco/nicotine Alcohol intake: never Substance/Drug Use: never Physical Exam 2 Const: COMMON NORMALS: no acute distress, patient oriented x3 and healthy appearing HENMT: COMMON NORMALS: normocephalic and atraumatic HEAD & SCALP: n ormocephalic and atraumatic Eye: COMMON NORMALS: conjunctivae normal CONJUNCTIVA: Yes conjunctivae normal Neck/C-Spine: COMMON NORMALS: full ROM and supple Chest: COMMONS NORMALS: normal inspection of the chest Resp: COMMON NORMALS: normal respiratory effort, No retractions, No use of accessory muscles and clear to auscultation bilaterally AUSCULTATION: clear to auscultation bilaterally Cardio: COMMON NORMALS: regular rate RATE: regular rate RHYTHM: abnormal rhythm irregularly irregular Extremity: COMMON NORMALS: normal to inspection and full ROM Neuro: COMMON NORMALS: patient oriented x3, moves all extremities and no focal motor deficits Psych: COMMON NORMALS: mental status grossly normal, Normal thought process present and cooperative THOUGHT PROCESS: Normal thought process present Skin: COMMON NORMALS: no rashes or lesions noted and no wounds GENERAL SKIN EXAM: no rashes or lesions noted Course 2 Vital Signs: Vital signs: Vital Signs Temperature 97.6 F 04/30/25 11:47 Pulse Rate 90 07/06/25 14:00 Respiratory Rate 23 H 04/30/25 14:00 Blood Pressure 133/67 04/30/25 14:00 Pulse Oximetry 100 04/30/25 12:40 Oxygen Delivery Me thod Room Air 04/30/25 11:47 MDM - SOB/Dyspnea Medical Decision Making Patient presents for shortness of breath some mild chest pains she has been well-appearing here her oxygen has been normal troponins. CTA showed no acute abnormalities she stable for discharge follow-up PCP return if worsening she understands agrees to plan Medical Records I reviewed the patient's medical records. Lab Data I reviewed the patient's lab results. 04/30/25 12:15 04/30/25 12:15 Labs/Radiology: Radiology Impressions Chest CTA 04/30/25 12:03 IMPRESSION: No acute findings. Laboratory Results WBC 7.09 10^3/uL (3.29-11.43) 04/30/25 12:15 RBC 4.78 10^6/uL (3.85-5.65) 04/30/25 12:15 Hgb 13.60 g/dL (11.27-16.99) 04/30/25 12:15 Hct 41.2 % (36-47) 04/30/25 12:15 MCV 86.2 fl (85-98) 04/30/25 12:15 MCH 28.5 pg (27-33) 04/30/25 12:15 MCHC 33.0 g/dL (30-55) 04/30/25 12:15 RDW 13.1 % (12.1-15.1) 04/30/25 12:15 Plt Count 220 10^3/cmm (157-399) 04/30/25 12:15 MPV 10.5 fL (7.4-10.4) H 04/30/25 12:15 Neut % (Auto) 61.3 % 04/30/25 12:15 Lymph % (Auto) 28.5 % 04/30/25 12:15 [place] % (Auto) 6.8 % 04/30/25 12:15 Eos % (Auto) 1.7 % 04/30/25 12:15 Baso % (Auto) 1.3 % 04/30/25 12:15 Neut # (Auto) 4.35 10^3/uL (1.8-7.7) 04/30/25 12:15 Lymph # (Auto) 2.0 10^3/uL (0.8-4.8) 04/30/25 12:15 [place] # (Auto) 0.5 10^3/uL (0.2-0.9) 04/30/25 12:15 Eos # (Auto) 0.1 10^3/uL (0.0-0.8) 04/30/25 12:15 Baso # (Auto) 0.1 10^3/uL (0.0-0.1) 04/30/25 12:15 Nucleated RBC % (auto) 0 % 04/30/25 12:15 Nucleated RBCs # 0.0 /100WBC 04/30/25 12:15 Sodium 137 mmol/L (136-145) 04/30/25 12:15 Potassium 4.0 mmol/L (3.5-5.1) 04/30/25 12:15 Chloride 103 mmol/L (98-107) 04/30/25 12:15 Carbon Dioxide 19 mmol/L (22-29) L 04/30/25 12:15 Anion Gap 19.0 (5-19) 04/30/25 12:15 BUN 14 mg/dL (8-23) 04/30/25 12:15 Creatinine 0.7 mg/dL (0.5-0.9) 04/30/25 12:15 GFR Calculation Not Reportable 04/30/25 12:15 Glucose 111 mg/dL (65-115) 04/30/25 12:15 Calculated Osmolality 285 mOsm/kg (285-295) 04/30/25 12:15 Calcium 9.5 mg/dL (8.5-10.5) 04/30/25 12:15 Total Bilirubin 0.4 mg/dL (0.15-1.2) 04/30/25 12:15 AST 18 U/L (0-32) 04/30/25 12:15 ALT 10 U/L (0-33) 04/30/25 12:15 Alkaline Phosphatase 69 U/L (35-105) 04/30/25 12:15 Troponin T Baseline 21 ng/L (0-10) H 04/30/25 12:15 Delta Troponin T 0 ABS# (0-10) 04/30/25 14:16 NT-Pro-B Natriuret Pep 1035 pg/mL (0-450) H 04/30/25 12:15 Total Protein 6.2 g/dL (6.6-8.7) L 04/30/25 12:15 Albumin 3.8 g/dL (3.5-5.2) 04/30/25 12:15 Globulin 2.4 g/dL (1.3-4.6) 04/30/25 12:15 All radiology interpretation(s) finalized by discharge EKG Data EKG 1: I personally reviewed and interpreted this EKG as follows: EKG Interpretation Date: 04/30/25 EKG interpretation time: 11:54 Interpretation: afib hr [address] elevation qrs 93 qtc 407 Discharge Plan Discharge Patient Disposition: Home Clinical Impression: Chest pain, Breath shortness Condition: Stable Prescriptions: No Action (DME) Custom Molded Orthotics See Rx Instructions .Route .MEDSUPPLY Qty: 1 0RF Rx Instructions: As directed (DME) fast form cast to the right See Rx Instructions .Route .MEDSUPPLY Qty: 1 0RF Rx Instructions: As directed (DME) Cock up splint See Rx Instructions .Route .MEDSUPPLY Qty: 1 0RF Rx Instructions: As directed multivitamin Tablet 1 tab PO QAM hydrocodone-acetaminophen 5-325 mg tablet 1 tab PO TID PRN (Reason: Pain) losartan 100 mg tablet 100 mg PO QAM cholecalciferol (vitamin D3) [Vitamin D3] 10 mcg (400 unit) Capsule 10 mcg PO DAILY aspirin 325 mg Tablet 325 mg PO QPM Probiotic Blend 2 billion cell-50 mg Capsule 1 cap PO DAILY diltiazem HCl 120 mg capsule,extended release 24hr 120 mg PO BEDTIME Cardizem 60 mg tablet 60 mg PO Q12H Qty: 60 0RF Discharge Orders: Discharge ED (Routine); Ordered 04/30/25 Ordered By: Isaiah Valera Referrals: Fernanda Peralta PA [Primary Care Provider, [facility]] - 4-7 days Discharge Diet: Advance as tolerated Discharge Activity: Resume usual activity Patient Instructions: Shortness of Breath (ED) Print Language: Angolan Coding Level of Care Code ED Shutdown Coordinator for Simran Nicholson
[2025-04-30 12:31] LABS: Hematocrit 41.2 % (36-47); Hemoglobin 13.60 g/dL (11.27-16.99); Mean Corpuscular HGB Conc 33.0 g/dL (30-55); Mean Corpuscular Hemoglobin 28.5 pg (27-33); Mean Corpuscular Volume 86.2 fl (85-98); Nucleated Red Blood Cells % 0 %; Platelet Count 220 10^3/cmm (157-399); Red Blood Count 4.78 10^6/uL (3.85-5.65); White Blood Count 7.09 10^3/uL (3.29-11.43)
[2025-04-30 12:40] VITALS: PULSE 79; O2SAT 100
[2025-04-30 12:45] LABS: Troponin(5th) Baseline 21 ng/L (0-10)
[2025-04-30 12:47] LABS: Alanine Aminotransferase 10 U/L (0-33); Albumin Level 3.8 g/dL (3.5-5.2); Alkaline Phosphatase 69 U/L (35-105); Blood Urea Nitrogen 14 mg/dL (8-23); Calcium 9.5 mg/dL (8.5-10.5); Carbon Dioxide 19 mmol/L (22-29); Chloride 103 mmol/L (98-107); Creatinine Clr Calc Pharmacy 55.6113; Globulin 2.4 g/dL (1.3-4.6); Glucose 111 mg/dL (65-115); Osmolality Calculated 285 mOsm/kg (285-295); Sodium 137 mmol/L (136-145); Total Protein 6.2 g/dL (6.6-8.7)
[2025-04-30 12:48] LABS: Anion Gap 19.0 (5-19); Aspartate Amino Transferase 18 U/L (0-32); Potassium 4.0 mmol/L (3.5-5.1)
[2025-04-30] MEDS: iohexol 350 mg/mL 500 mL Btl (per mL) IV (12:54)
[2025-04-30 13:30] VITALS: PULSE 80; RESP 16
[2025-04-30 13:31] LABS: NT Pro B Type Natriuretic Pept 1035 pg/mL (0-450)
[2025-04-30 13:45] VITALS: BP 133/67; PULSE 88; RESP 22
[2025-04-30] MEDS: FUROsemide 10 mg/mL SDV 4mL 40 MG IVP (13:46)
[2025-04-30 14:00] VITALS: BP 133/67; PULSE 90; RESP 23
[2025-04-30 14:40] LABS: Troponin 5 2HR 21.00 ng/L (0-10); Troponin 5 2HR Delta 0 ABS# (0-10)
[2025-04-30 14:54] VITALS: BP 108/75; PULSE 97; O2SAT 98
== END 2025-04-30 14:55 | disposition home or self-care (01) ==
PROVIDERS: Emergency Provider Emergency Medicine; PCP Physician Assistant
DX: R07.9 Chest pain, unspecified (principal); R06.02 Shortness of breath; Z79.82 Long term (current) use of aspirin; I10 Essential (primary) hypertension; Z85.828 Personal history of other malignant neoplasm of skin
CPT/HCPCS: 36415; 71275; 80053; 83880; 84484; 85025; 93005; 93010; 96374; 99285; J1938

== ENCOUNTER 2025-07-27 08:39 | Outpatient (CLI) | payer MEDICARE, OTHER, SELFPAY ==
--- NOTE | 2025-07-27 08:48 | XR_ITS ---
WS: [email or web address] XR hand LT min 3V* [id number] REASON FOR EXAM: LEFT HAND PAIN FINDINGS: No fracture or focal bone lesion. No periosteal reaction. Significant asymmetric joint space narrowing with significant subchondral sclerosis and osteophytosis in the DIP joints of the second through the fifth fingers. Similar but somewhat milder arthropathic change in the PIP joints of the second through the fifth fingers and the 3 joints of the thumb. 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
--- NOTE | 2025-07-27 08:49 | XR_ITS ---
WS: [email or web address] XR shoulder LT min 2V* [id number] REASON FOR EXAM: LEFT SHOULDER PAIN FINDINGS: No fracture or focal bone lesion. Significant narrowing of the acromioclavicular joint with mild to moderate subchondral sclerosis and osteophytosis. Glenohumeral joint space is not well demonstrated but there appears to be moderate narrowing. There is mild to moderate subchondral sclerosis and osteophytosis of the glenoid. There is mild to moderate subchondral sclerosis, cystic change and osteophytosis of the humeral head. Minimal sclerosis and cystic change in the greater biceps tuberosity. XR/XR shoulder LT min 2V* [id number] IMPRESSION: Mild osteoarthritis in the acromioclavicular joint. Moderate osteoarthritis in the glenohumeral joint. Minimal rotator cuff tendon arthropathy.
--- NOTE | 2025-07-27 08:49 | XR_ITS ---
WS: [email or web address] XR shoulder RT min 2V* [id number] REASON FOR EXAM: RIGHT SHOULDER PAIN FINDINGS: No fracture or focal bone lesion. Significant narrowing of the acromioclavicular joint with mild to moderate subchondral sclerosis and osteophytosis. Mild lateral downward slant orientation of the acromial process. The glenohumeral joint space is not well demonstrated but likely is significantly narrowed. There is moderate subchondral sclerosis and cystic change in the subarticular glenoid. There is subchondral cystic change and moderate osteophytosis in the humeral head. Mild sclerosis and cystic change in the greater biceps tuberosity. XR/XR shoulder RT min 2V* [id number] IMPRESSION: Mild osteoarthritis in the acromioclavicular joint. Likely significant osteoarthritis in the glenohumeral joint. Mild rotator cuff tendon arthropathy. Shoulder is unchanged compared to 03/01/2023.
--- NOTE | 2025-07-27 08:49 | XR_ITS ---
WS: [email or web address] XR hand RT min 3V* [id number] REASON FOR EXAM: RIGHT HAND PAIN FINDINGS: No fracture or focal bone lesion. No periosteal reaction. Significant asymmetric narrowing of the joint space with significant subchondral sclerosis and osteophytosis in the DIP joints of the second through the fifth fingers. Similar but milder arthropathic change in the PIP joints of the second through the fifth fingers. Similar arthropathic change in the 3 joints of the thumb most notably the CMC joint. XR/XR hand RT min 3V* [id number] IMPRESSION: Osteoarthritis of the right hand as above.
== END 2025-07-27 08:40 | disposition home or self-care (01) ==
LOC: RAD 08:41
PROVIDERS: PCP Physician Assistant; Visit Provider Student in an Organized Health Care Education/Training Program
DX: M19.042 Primary osteoarthritis, left hand (principal); M19.041 Primary osteoarthritis, right hand; M19.012 Primary osteoarthritis, left shoulder; M19.011 Primary osteoarthritis, right shoulder
CPT/HCPCS: 73030; 73130

== ENCOUNTER → 2025-09-29 08:11 | Outpatient (BNVA) | payer MEDICARE, OTHER, SELFPAY | PROVIDERS: PCP Physician Assistant; Visit Provider Nurse Practitioner Family | DX: L82.1 Other seborrheic keratosis (principal); D22.5 Melanocytic nevi of trunk; D36.12 Benign neoplasm of peripheral nerves and autonomic nervous system, upper limb, including shoulder; L57.0 Actinic keratosis | CPT/HCPCS: 11102; 17000; 99213 ==